=== PATIENT | female | born 1980 | race Caucasian/White ===

== ENCOUNTER 2017-03-17 20:26 | Emergency (ER) | payer OTHER ==
[2017-03-17 20:51] LABS: BILIRUBIN,URINE NEGATIVE (NEGATIVE); PH,URINE 6.5 PH (5.0-7.5)
[2017-03-17 20:54] LABS: HCG UR QUAL NEGATIVE; UA w/ MICROSCOPIC CHARGE YES
[2017-03-17 21:10] LABS: WBC,URINE 0-3 /HPF (0-5)
[2017-03-17 21:14] LABS: UR CULTURE IF IND NOT INDICATED
[2017-03-17] MEDS ORDERED: metroNIDAZOLE 250 MG TABLET PO STA (21:55)
[2017-03-17] MEDS ORDERED: FLUCONAZOLE 100 MG TABLET PO STA (21:55)
[2017-03-17] MEDS ORDERED: metroNIDAZOLE 250 MG TABLET PO ONE (21:57)
[2017-03-17] MEDS ORDERED: FLUCONAZOLE 100 MG TABLET ONE (21:57)
--- NOTE | 2017-03-17 22:00 | ED Physician Documentation ---
PD HPI FEMALE - Stated complaint Stated Complaint: FEMALE - Chief complaint Chief Complaint: Abd Pain - History obtained from History obtained from: Patient - History of Present Illness Timing - onset: How many weeks ago (2) Timing - duration: Weeks (2) Timing - details: Gradual onset Pain level max: 2 Pain level max: 2 Associated symptoms: Back pain (low back), Vaginal discharge (clear, malodorous) . No: Fever, Chest/shoulder pain, Abdominal pain, Pelvic pain, Vaginal pain, Vaginal bleeding, Genital sore/lesion, Dysuria, Urinary frequency, Hematuria Contributing factors: Sexually active (one partner, no changes). No: Recently seen: Clinic (seen in clinic for same. States neg GC/Chlamydia by urine. States PCP did not perform a pelvic.) Review of Systems Constitutional: denies: Fever, Chills Nose: denies: Rhinorrhea / runny nose, Congestion Respiratory: denies: Cough GI: denies: Abdominal Pain, Nausea, Vomiting, Diarrhea : denies: Now EGA Skin: denies: Rash Musculoskeletal: denies: Neck pain, Back pain Neurologic: denies: Headache PD PAST MEDICAL HISTORY - Past Medical History Past Medical History: No - Past Surgical History Past Surgical History: No - Present Medications Home Medications: Ambulatory Orders Medication Instructions Recorded Confirmed Metronidazole [Flagyl] 500 mg PO BID #14 tablet 03/17/17 - Allergies Allergies/Adverse Reactions: Allergies Allergy/AdvReac Type Severity Reaction Status Date / Time Penicillins AdvReac Intermediate swollen Verified 03/17/17 20:31 - Living Situation Living Situation: reports: With family Living Arrangement: reports: At home - Social History Does the pt smoke?: No Smoking Status: Never smoker Does the pt drink ETOH?: Yes Does the pt have substance abuse?: No - Immunizations Immunizations are current?: Yes - POLST Patient has POLST: No PD ED PE NORMAL - Vitals Vital signs reviewed: Yes - General General: Alert and oriented X 3, No acute distress - HEENT HEENT: Moist mucous membranes - Neck Neck: Supple, no meningeal sign - Cardiac Cardiac: RRR - Respiratory Respiratory: No respiratory distress, Clear bilaterally - Abdomen Abdomen: Soft, Non tender, Non distended - Female Female : Lining Scrubber present (Rita (radiation technician)), Other (Thin white discharge. Normal cervix. No genital sores.) - Back Back: No CVA TTP - Derm Derm: Warm and dry - Neuro Neuro: Alert and oriented X 3 - Psych Psych: Normal mood, Normal affect Results - Vitals Vitals: Vital Signs - 24 hr 03/17/17 03/17/17 20:30 22:10 Temperature 36.5 C Heart Rate 73 68 Respiratory 14 18 Rate Blood Pressure 120/80 116/75 O2 Saturation 99 99 Oxygen O2 Source Room air - Labs Labs: Microbiology 03/17/17 21:15 [place] Preparation - Final Other - Vaginal 03/17/17 21:15 Wet Prep - Final Vaginal Laboratory Tests 03/17/17 20:42 Urine Color YELLOW Urine Clarity CLEAR Urine pH 6.5 Ur Specific [place] 1.020 Urine Protein NEGATIVE Urine Glucose (UA) NEGATIVE Urine Ketones NEGATIVE Urine Occult Blood LARGE H Urine Nitrite NEGATIVE Urine Bilirubin NEGATIVE Urine Urobilinogen 0.2 (NORMAL) Ur Leukocyte Esterase NEGATIVE Urine RBC 11-25 H Urine WBC 0-3 Ur Squamous Epith Cells MOD Squamous H Urine Bacteria None Seen Ur Microscopic Review INDICATED Urine Culture Comments NOT INDICATED Urine HCG, Qual NEGATIVE PD MEDICAL DECISION MAKING - ED course Complexity details: reviewed results, re-evaluated patient, considered differential, d/w patient ED course: Patient presents to the emergency department with vaginal discharge intermittently for the past 2 weeks. Appears to have bacterial vaginitis as well as a yeast infection. Given Diflucan here as well as Flagyl. Will place on Flagyl for home and have her follow-up with her doctor as needed. She is very well-appearing, nontoxic. Afebrile. No change in sexual partners. Is in a monogamous relationship. Low risk for STD. No evidence of tubo-ovarian abscess. Patient counseled regarding signs and symptoms for which I believe and urgent re-evaluation would be necessary. Patient with good understanding of and agreement to plan and is comfortable going home at this time This document was made in part using voice recognition software. While efforts are made to proofread this document, sound alike and grammatical errors may occur. Departure - Departure Disposition: 01 Home, Self Care Clinical Impression: Bacterial vaginitis, Yeast infection of the vagina Condition: Good Instructions: ED Vaginosis Bacterial, ED Vaginal Infec Fungal [place] Follow-Up: DIAMOND LEGER [Primary Care Provider] - Within 1 week Prescriptions: Metronidazole [Flagyl] 500 mg PO BID #14 tablet Comments: Return if you worsen. Do not drink alcohol while taking the flagyl. Discharge Date/Time: 03/17/17 22:12
[2017-03-17 22:12] VITALS: BP 116/75
== END 2017-03-17 22:12 | disposition home or self-care (01) ==
LOC: ED 20:26
DX: N76.0 Acute vaginitis (principal); B96.89 Other specified bacterial agents as the cause of diseases classified elsewhere; B37.3 Candidiasis of vulva and vagina
CPT/HCPCS: 81001; 81025; 87210; 87220; 87491; 87591; 99283; A9270; 81003; 87086

== ENCOUNTER 2017-05-18 14:03 | Emergency (ER) | payer OTHER ==
--- NOTE | 2017-05-18 19:06 | XRAY Preliminary Report ---
Exam: XR Chest 2 View PA/LAT IMPRESSION: Normal 2-view chest radiography. [facility] SITE ID: [id number]
--- NOTE | 2017-05-18 19:09 | XRAY Report ---
EXAM: CHEST RADIOGRAPHY EXAM DATE: 05/18/2017 06:26 PM. CLINICAL HISTORY: Chest pain. COMPARISON: None. TECHNIQUE: 2 views. FINDINGS: Lungs/Pleura: No focal opacities evident. No pleural effusion. No pneumothorax. Normal volumes. Mediastinum: Heart and mediastinal contours are unremarkable. Other: None. IMPRESSION: Normal 2-view chest radiography. [facility] Referring Provider Line: [phone] SITE ID: [id number]
--- NOTE | 2017-05-18 19:45 | ED Physician Documentation ---
PD HPI ABD PAIN - Stated complaint Stated Complaint: CHEST PAIN - Chief complaint Chief Complaint: Cardiac - History obtained from History obtained from: Patient - Additional information Additional information: Patient is a pleasant 36-year-old female without any past medical history presents with a complaint of left-sided chest pain. She has had this chest pain off and on for the past couple of days it is worse with movement of her arm. 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 She denies any chest heaviness, shortness of breath, nausea, vomiting, fever, chills cough leg pain or swelling there is no history of venous thromboembolism. Review of systems: For pertinent positive and negatives in the review of systems please see the history of present illness, otherwise all other systems have been reviewed and are negative. Dragon disclaimer: Parts of this medical record were created using voice recognition technology. Because of the inherent limitations of this system, occasional same sounding word substitutions do occur and persist despite proofreading. Please read the document for context. Review of Systems Cardiac: reports: Chest pain / pressure. denies: Palpitations (Patient is a 36- year-old female who is otherwise very healthy she presents with left-sided chest pain off and on for several days the chest pain is very brief but intense. She is very tender in the costochondral junctions consistent with costochondritis however some of her symptoms are more pleural in nature. There is no evidence of ACS and she is very low risk for PE clinically. I think this patient can be safely discharged home with a small amount anti-inflammatory and narcotic analgesia if needed. Disposition: To home Clinical impression: 1. Precordial pain low risk cardiac low risk pulmonary embolism 2. Suspect some component of costochondritis and perhaps pleural-based pain), Pedal edema, Calf pain Respiratory: denies: Dyspnea, Cough, Hemoptysis, Wheezing PD PAST MEDICAL HISTORY - Past Surgical History Past Surgical History: No - Present Medications Home Medications: Ambulatory Orders Medication Instructions Recorded Confirmed Metronidazole [Flagyl] 500 mg PO BID #14 tablet 03/17/17 Ibuprofen 600 mg PO TID PRN #14 tablet 05/18/17 Tramadol HCl 50 mg PO Q8HR PRN #14 tablet 05/18/17 - Allergies Allergies/Adverse Reactions: Allergies Allergy/AdvReac Type Severity Reaction Status Date / Time Penicillins AdvReac Intermediate swollen Verified 03/17/17 20:31 - Social History Does the pt smoke?: No Smoking Status: Never smoker Does the pt drink ETOH?: Yes Does the pt have substance abuse?: No - Immunizations Immunizations are current?: Yes - POLST Patient has POLST: No Results - Vitals Vitals: Vital Signs - 24 hr 05/18/17 05/18/17 05/18/17 14:12 16:35 17:39 Temperature 36.7 C 35.9 C L Heart Rate 68 56 L Respiratory 16 14 Rate Blood Pressure 102/73 109/73 Blood Pressure 110/60 [Left] Blood Pressure 114/52 L [Right] O2 Saturation 100 100 Oxygen O2 Source Room air PD MEDICAL DECISION MAKING - ED course ED course: Patient is a 36-year-old female who is otherwise very healthy she presents with left-sided chest pain off and on for several days the chest pain is very brief but intense. She is very tender in the costochondral junctions consistent with costochondritis however some of her symptoms are more pleural in nature. There is no evidence of ACS and she is very low risk for PE clinically. I think this patient can be safely discharged home with a small amount anti-inflammatory and narcotic analgesia if needed. Disposition: To home Clinical impression: 1. Precordial pain low risk cardiac low risk pulmonary embolism 2. Suspect some component of costochondritis and perhaps pleural-based pain Departure - Departure Disposition: 01 Home, Self Care Clinical Impression: Costochondral chest pain Chest pain Qualifiers: Chest pain type: intercostal pain Qualified Code(s): R07.82 - Intercostal pain Instructions: ED Chest Pain Costochondritis Follow-Up: DIAMOND LEGER [Primary Care Provider] - Prescriptions: Tramadol HCl 50 mg PO Q8HR PRN #14 tablet PRN Reason: Pain Ibuprofen 600 mg PO TID PRN #14 tablet PRN Reason: Pain
[2017-05-18 19:46] VITALS: BP 97/60
== END 2017-05-18 19:45 | disposition home or self-care (01) ==
LOC: ED 14:03
DX: R07.2 Precordial pain (principal); M94.0 Chondrocostal junction syndrome [Tietze]
CPT/HCPCS: 71020; 93005; 99283

== ENCOUNTER 2017-12-13 15:24 | Emergency (ER) | payer OTHER ==
--- NOTE | 2017-12-13 16:48 | ED Physician Documentation ---
PD HPI FEMALE - Stated complaint Stated Complaint: FEMALE - Chief complaint Chief Complaint: Abd Pain - History obtained from History obtained from: Patient - History of Present Illness Timing - onset: How many weeks ago (1) Timing - duration: Weeks (1) Timing - details: Gradual onset Pain level max: 5 Pain level max: 4 Associated symptoms: Vaginal pain, Vaginal discharge (white, states smells fishy ). No: Dysuria, Urinary frequency, Hematuria Contributing factors: No: Similar symptoms before: Diagnosis (BV) Recently seen: Not recently seen - Additional information Additional information: states used a perfumed soap to clean her vagina a week ago before this started. States seen at [facility] for same and no results given. Review of Systems Constitutional: reports: Fever (states had a fever) Nose: denies: Rhinorrhea / runny nose, Congestion Throat: denies: Sore throat Cardiac: denies: Chest pain / pressure Respiratory: denies: Cough GI: denies: Nausea, Vomiting : reports: Discharge. denies: Now EGA Skin: denies: Rash Musculoskeletal: denies: Neck pain, Back pain Neurologic: denies: Headache PD PAST MEDICAL HISTORY - Past Medical History Past Medical History: Yes - Past Surgical History Past Surgical History: No - Present Medications Home Medications: Ambulatory Orders Medication Instructions Recorded Confirmed Cetirizine [ZyrTEC] 12/13/17 Metronidazole [Flagyl] 500 mg PO BID #20 tablet 12/13/17 - Allergies Allergies/Adverse Reactions: Allergies Allergy/AdvReac Type Severity Reaction Status Date / Time Penicillins AdvReac Intermediate swollen Verified 12/13/17 15:34 - Living Situation Living Situation: reports: With family Living Arrangement: reports: At home - Social History Does the pt smoke?: No Smoking Status: Never smoker Does the pt drink ETOH?: Yes Does the pt have substance abuse?: No - Immunizations Immunizations are current?: Yes - POLST Patient has POLST: No PD ED PE NORMAL - Vitals Vital signs reviewed: Yes - General General: Alert and oriented X 3, No acute distress - HEENT HEENT: Ears normal, Moist mucous membranes, Other (mild posterior oropharyngeal erythema without tonsillar exudates.) - Neck Neck: Supple, no meningeal sign - Cardiac Cardiac: RRR, Strong equal pulses - Respiratory Respiratory: No respiratory distress, Clear bilaterally - Abdomen Abdomen: Soft, Non tender, Non distended - Female Female : Internal Medicine Specialist present (Sadaf LOMBARDI), Other (white vaginal d/c. no CMT. no adnexal masses ) - Derm Derm: Warm and dry - Neuro Neuro: Alert and oriented X 3 - Psych Psych: Normal mood, Normal affect Results - Vitals Vitals: Vital Signs - 24 hr 12/13/17 12/13/17 15:29 18:43 Temperature 37.4 C Heart Rate 66 77 Respiratory 16 18 Rate Blood Pressure 108/75 123/74 O2 Saturation 96 98 Oxygen O2 Source Room air - Labs Labs: Microbiology 12/13/17 17:25 [place] Preparation - Final Other - Vaginal 12/13/17 17:25 Wet Prep - Final Vaginal Laboratory Tests 12/13/17 16:55 Urine Color YELLOW Urine Clarity CLEAR Urine pH 7.5 Ur Specific [place] 1.025 Urine Protein NEGATIVE Urine Glucose (UA) NEGATIVE Urine Ketones NEGATIVE Urine Occult Blood MODERATE H Urine Nitrite NEGATIVE Urine Bilirubin NEGATIVE Urine Urobilinogen 0.2 (NORMAL) Ur Leukocyte Esterase NEGATIVE Urine RBC 0-5 Urine WBC 0-3 Ur Squamous Epith Cells MOD Squamous H Amorphous Sediment Marked Urine Bacteria Rare Ur Microscopic Review INDICATED Urine Culture Comments NOT INDICATED Urine HCG, Qual NEGATIVE PD MEDICAL DECISION MAKING - ED course Complexity details: considered differential, d/w patient ED course: Patient is a 37-year-old female who appears to have bacterial vaginitis. Will place on Flagyl. Will have her follow-up with her PCP for further care. Patient counseled regarding signs and symptoms for which I believe and urgent re -evaluation would be necessary. Patient with good understanding of and agreement to plan and is comfortable going home at this time This document was made in part using voice recognition software. While efforts are made to proofread this document, sound alike and grammatical errors may occur. Departure - Departure Disposition: 01 Home, Self Care Clinical Impression: Bacterial vaginitis Condition: Good Instructions: ED Vaginosis Bacterial Follow-Up: your,doctor in 1 week [Other] Prescriptions: Metronidazole [Flagyl] 500 mg PO BID #20 tablet Comments: Return if you worsen. Take all flagyl until gone. Discharge Date/Time: 12/13/17 18:43
[2017-12-13 17:10] LABS: BILIRUBIN,URINE NEGATIVE (NEGATIVE); GLUCOSE, URINE (UA) NEGATIVE (NEGATIVE); KETONES,URINE (UA) NEGATIVE (NEGATIVE); LEUKOCYTE ESTERASE, URINE NEGATIVE (NEGATIVE); NITRITE,URINE NEGATIVE (NEGATIVE); OCCULT BLOOD,URINE MODERATE (NEGATIVE); PH,URINE 7.5 PH (5.0-7.5); PROTEIN,URINE NEGATIVE (NEGATIVE); UROBILINOGEN,URINE 0.2 (NORMAL) E.U./dL (NORMAL)
[2017-12-13 17:23] LABS: HCG UR QUAL NEGATIVE
[2017-12-13 17:24] LABS: CLARITY,URINE CLEAR (CLEAR)
[2017-12-13 17:25] LABS: AMORPHOUS SEDIMENT,UR Marked /LPF; BACTERIA,URINE Rare /HPF (None Seen); RBC,URINE 0-5 /HPF (0-5); SQUAMOUS EPITHELIAL CELL,UR MOD Squamous (<= Few)
[2017-12-13] MEDS ORDERED: metroNIDAZOLE 250 MG TABLET PO STA (18:19)
[2017-12-13 18:46] VITALS: BP 123/74
== END 2017-12-13 18:43 | disposition home or self-care (01) ==
LOC: ED 15:24
DX: N76.0 Acute vaginitis (principal)
CPT/HCPCS: 81001; 81025; 87210; 87220; 99283; A9270; 81003; 87086

== ENCOUNTER 2018-01-31 15:20 | Emergency (ER) | payer OTHER ==
[2018-01-31 15:25] VITALS: BP 108/73
--- NOTE | 2018-01-31 15:25 | ED Physician Documentation ---
PD HPI URI - Stated complaint Stated Complaint: THROAT PX - History obtained from History obtained from: Patient - History of Present Illness Timing - onset: How many days ago (3) Timing duration: Days (3) Timing details: Abrupt onset, Still present Associated symptoms: Sore throat, Swollen nodes, Dry cough, Other (hoarse voice and pain with swallowing.). No: Fever, Nasal congestion, Rhinorrhea Contributing factors: Travel (to [place] about 1 1/2 weeks ago, did not feel sick right after returning.). No: Sick contact, Immunocompromised Similar symptoms before: Has not had sx before Recently seen: Not recently seen Review of Systems Constitutional: reports: Myalgias. denies: Fever Nose: reports: Congestion. denies: Rhinorrhea / runny nose Throat: reports: Sore throat Cardiac: denies: Chest pain / pressure Respiratory: reports: Cough (mild). denies: Dyspnea, Wheezing GI: denies: Nausea, Vomiting, Diarrhea Skin: denies: Rash, Lesions Neurologic: reports: Difficulty speaking (hoarse voice and hurts to talk) PD PAST MEDICAL HISTORY - Past Medical History Cardiovascular: None Respiratory: None Neuro: None Endocrine/Autoimmune: Other (seasonal allergies) - Past Surgical History Past Surgical History: No - Present Medications Home Medications: Ambulatory Orders Medication Instructions Recorded Confirmed Cetirizine [ZyrTEC] 12/13/17 Metronidazole [Flagyl] 500 mg PO BID #20 tablet 12/13/17 Cephalexin [Keflex] 500 mg PO TID #18 capsule 01/31/18 Dexamethasone [Decadron] 4 mg PO DAILY #5 tablet 01/31/18 Tramadol HCl 50 mg PO Q6H PRN #12 tablet 01/31/18 - Allergies Allergies/Adverse Reactions: Allergies Allergy/AdvReac Type Severity Reaction Status Date / Time Penicillins AdvReac Intermediate swollen Verified 12/13/17 15:34 - Social History Does the pt smoke?: No Smoking Status: Never smoker Does the pt drink ETOH?: Yes Does the pt have substance abuse?: No - Immunizations Immunizations are current?: Yes - POLST Patient has POLST: No PD ED PE NORMAL - Vitals Vital signs reviewed: Yes - General General: Alert and oriented X 3, No acute distress, Well developed/nourished - HEENT HEENT: Ears normal. No: Pharynx benign (some redness posteriorly without exudate. Mild soft tissue swelling to the right side, but no notable peritonsillar deviation.) - Neck Neck: Supple, no meningeal sign, Other (mild anterior adenopathy) - Cardiac Cardiac: RRR, No murmur - Respiratory Respiratory: Clear bilaterally - Derm Derm: Normal color, Warm and dry, No rash - Neuro Neuro: Alert and oriented X 3, No motor deficit. No: Normal speech (hoarseness , raspy voice. ) Results - Vitals Vitals: Vital Signs - 24 hr 01/31/18 15:24 Temperature 36.4 C L Heart Rate 52 L Respiratory 15 Rate Blood Pressure 108/73 O2 Saturation 99 Oxygen O2 Source Room air PD MEDICAL DECISION MAKING - ED course Complexity details: considered differential (does not look like strep per se, but she does have some laryngitis (hoarseness) and some appearance of mild peritonsillar swelling on right. Likely viral (or even allergies) but I want to cover with abx in case of early peritonsillar process. This would not likely be GAS, so did not do swab. ), d/w patient Departure - Departure Disposition: 01 Home, Self Care Clinical Impression: Upper respiratory infection Qualifiers: URI type: acute laryngitis Qualified Code(s): J04.0 - Acute laryngitis Condition: Stable Record reviewed to determine appropriate education?: Yes Instructions: ED Upper Resp Infec Abx Tx Prescriptions: Cephalexin [Keflex] 500 mg PO TID #18 capsule Dexamethasone [Decadron] 4 mg PO DAILY #5 tablet Tramadol HCl 50 mg PO Q6H PRN #12 tablet PRN Reason: Pain Comments: Drink lots of fluids. Tylenol or ibuprofen if needed for fevers or pains. Add tramadol just if needed for worse pain. This may be just allergy related but is more likely infectious. Continue your cetirizine. Add Decadron steroid anti -inflammatory for 5 more days. Cephalexin 3 times a day for potential bacterial infection. Recheck if not improving over the next several days. Forms: Activity restrictions
[2018-01-31] MEDS ORDERED: cephALEXin 250 MG CAPSULE PO STA (15:33)
[2018-01-31] MEDS ORDERED: BENZONATATE 100 MG CAPSULE PO STA (15:33)
[2018-01-31] MEDS ORDERED: DEXAMETHASONE 10 MG/ML VIAL PO STA (15:33)
== END 2018-01-31 15:51 | disposition home or self-care (01) ==
LOC: ED 15:20
DX: J04.0 Acute laryngitis (principal)
CPT/HCPCS: 99283; A9270

== ENCOUNTER 2018-10-27 08:00 | Outpatient (CLI) | payer OTHER | END 2018-10-27 23:59 | disposition home or self-care (01) | LOC: LAB.R 08:00 | PROVIDERS: ATTEND Registered Nurse | DX: Z11.3 Encounter for screening for infections with a predominantly sexual mode of transmission (principal) | CPT/HCPCS: 87491; 87591 ==

== ENCOUNTER 2021-01-23 23:23 | Emergency (ER) | payer OTHER ==
[2021-01-23] MEDS ORDERED: FLUCONAZOLE 100 MG TABLET PO STA (23:56)
[2021-01-23 23:57] LABS: BILIRUBIN,URINE NEGATIVE (NEGATIVE); GLUCOSE, URINE (UA) NEGATIVE (NEGATIVE); KETONES,URINE (UA) NEGATIVE (NEGATIVE); LEUKOCYTE ESTERASE, URINE MODERATE (NEGATIVE); NITRITE,URINE NEGATIVE (NEGATIVE); OCCULT BLOOD,URINE MODERATE (NEGATIVE); PROTEIN,URINE NEGATIVE (NEGATIVE); UROBILINOGEN,URINE 0.2 (NORMAL) E.U./dL (NORMAL)
[2021-01-23 23:58] LABS: CLARITY,URINE CLEAR (CLEAR)
--- NOTE | 2021-01-23 23:59 | ED Physician Documentation ---
PD HPI FEMALE - Stated complaint Stated Complaint: FEMALE - Chief complaint Chief Complaint: UTI - History obtained from History obtained from: Patient - History of Present Illness Timing - onset: How many days ago (2) Timing - duration: Days (2) Timing - details: Gradual onset, Still present Associated symptoms: Vaginal discharge, Other (itching) Contributing factors: No: Similar symptoms before: Diagnosis (yeast vaginitis) Recently seen: Clinic - Additional information Additional information: 40-year-old female who reports that she was recently treated for bacterial vaginosis is finished her antibiotics yesterday and she has developed some vaginal itching and a white curd-like discharge without odor. She has had yeast vaginitis previously and feels she has the same today. She is requesting Diflucan. She states that she has recently been examined and she had an entire panel and was treated for bacterial vaginosis. She was tested for STD. Review of Systems Constitutional: denies: Fever Eyes: denies: Decreased vision Ears: denies: Ear pain Nose: denies: Congestion Throat: denies: Sore throat Respiratory: denies: Cough GI: denies: Vomiting : reports: Discharge. denies: Dysuria, Frequency Skin: denies: Rash Musculoskeletal: denies: Neck pain, Back pain, Extremity pain Neurologic: denies: Generalized weakness, Focal weakness, Numbness PD PAST MEDICAL HISTORY - Past Medical History Past Medical History: No Cardiovascular: None Respiratory: None Endocrine/Autoimmune: Other - Past Surgical History Past Surgical History: No - Present Medications Home Medications: Ambulatory Orders Medication Instructions Recorded Confirmed Fluconazole [Diflucan] 1 tablet PO ONCE 1 Days #1 tablet 01/24/21 - Allergies Allergies/Adverse Reactions: Allergies Allergy/AdvReac Type Severity Reaction Status Date / Time Penicillins AdvReac Intermediate swollen Verified 01/23/21 23:43 - Social History Does the pt smoke?: No Smoking Status: Never smoker Does the pt drink ETOH?: Yes Does the pt have substance abuse?: No - Immunizations Immunizations are current?: Yes - POLST Patient has POLST: No PD ED PE NORMAL - Vitals Vital signs reviewed: Yes (Normal) - General General: Alert and oriented X 3, No acute distress, Well developed/nourished - HEENT HEENT: Atraumatic, PERRL, EOMI - Respiratory Respiratory: No respiratory distress - Extremities Extremities: No deformity, No edema - Neuro Neuro: Alert and oriented X 3, 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, No motor deficit, No sensory deficit, Normal speech Eye Opening: Spontaneous Motor: Obeys Commands Verbal: Oriented GCS Score: 15 - Psych Psych: Normal mood, Normal affect Results - Vitals Vitals: Vital Signs - 24 hr 01/23/21 01/23/21 01/24/21 23:43 23:52 00:05 Temperature 36.7 C 36.7 C 36.7 C Heart Rate 60 60 61 Respiratory 16 16 16 Rate Blood Pressure 118/68 118/68 115/65 O2 Saturation 99 99 99 Oxygen O2 Source Room air - Labs Labs: Laboratory Tests 01/23/21 23:50 Urine Color YELLOW Urine Clarity CLEAR Urine pH 6.0 Ur Specific [place] <=1.005 Urine Protein NEGATIVE Urine Glucose (UA) NEGATIVE Urine Ketones NEGATIVE Urine Occult Blood MODERATE H Urine Nitrite NEGATIVE Urine Bilirubin NEGATIVE Urine Urobilinogen 0.2 (NORMAL) Ur Leukocyte Esterase MODERATE H Urine RBC 0-5 Urine WBC 6-10 H Ur Squamous Epith Cells FEW Squamous Urine Bacteria Few Ur Microscopic Review INDICATED Urine Culture Comments INDICATED PD MEDICAL DECISION MAKING - ED course Complexity details: considered differential, d/w patient ED course: 40-year-old female who has recently been examined and treated for bacterial vaginosis now has symptoms consistent with candidal vulvovaginitis. She is requesting specifically Diflucan and this is completely reasonable. She is administered Diflucan 150 mg orally. Departure - Departure Disposition: 01 Home, Self Care Clinical Impression: Yeast infection of the vagina Condition: Good Instructions: ED Vaginal Infec Fungal [place] Follow-Up: KENDELL Patel [Provider Group] Prescriptions: Fluconazole [Diflucan] 1 tablet PO ONCE 1 Days #1 tablet Comments: If symptoms are not resolved in 3 days take the additional tablet. Discharge Date/Time: 01/24/21 00:07
[2021-01-24 00:04] LABS: BACTERIA,URINE Few /HPF (None Seen); RBC,URINE 0-5 /HPF (0-5); SQUAMOUS EPITHELIAL CELL,UR FEW Squamous (<= Few)
[2021-01-24 00:08] VITALS: BP 115/65
[2021-01-30] MEDS ORDERED: IOPAMIDOL-300 50 ML VIAL ONE (14:25)
[2021-01-30] MEDS ORDERED: IOPAMIDOL-300 100 ML VIAL ONE (14:25)
== END 2021-01-24 00:07 | disposition home or self-care (01) ==
LOC: ED 23:23
DX: B37.3 Candidiasis of vulva and vagina (principal); Z86.19 Personal history of other infectious and parasitic diseases
CPT/HCPCS: 81001; 87086; 99283; 99284; A9270; 81003

== ENCOUNTER 2022-03-20 01:06 | Outpatient (CLI) | payer OTHER | END 2022-03-20 01:07 | disposition left against medical advice (07) | LOC: EMS 01:06 | DX: Z03.89 Encounter for observation for other suspected diseases and conditions ruled out (principal) ==

== ENCOUNTER 2022-12-25 18:48 | Emergency (ER) | payer OTHER ==
--- OUTSIDE RECORDS SUMMARY | 2022-12-25 19:35 | EXTERNAL MEDICAL SUMMARY RPT | Continuity of Care Document ---
:1980 Author Organization [place] Address [address] [place] [address] Phone Care Team Providers Name Role Phone Freddie Boston Unavailable Unavailable Allergies and Intolerances date description facility type (no date) Mild [facility] (unknown) (no date) Penicillins [facility] (unknown) (no date) shellfish derived [facility] (unknown) Encounters No information. Functional Status No information. Immunizations No information. Medications date description facility 2022-11-25 00:00 Nitrofurantoin Monohyd/M-Cryst [facility] 2022-11-25 00:00 Metronidazole [facility] Problems date description facility 2022-10-08 12:06 Encounter for supervision of other [facility] 2022-10-08 12:08 Encounter for supervision of other [facility] 2022-10-09 08:19 Encounter for supervision of other [facility] 2022-10-30 16:21 Encounter for supervision of other [facility] 2022-10-30 17:04 Encounter for supervision of other [facility] 2022-10-30 23:53 Encounter for supervision of other [facility] 2022-11-01 00:00 Multigravida of advanced maternal age [facility] 2022-11-01 00:00 Rh negative, antepartum [facility] 2022-11-01 00:00 Anemia in [facility] 2022-11-01 00:00 [facility]:00 [facility] 2022-11-01 00:00 History of placental abruption [facility] 2022-11-25 00:00 Depression [facility] 2022-11-25 00:00 Urinary tract infection [facility] 2022-11-25 00:00 Bacterial vaginosis [facility] 2022-11-25 00:00 Vaginal bleeding [facility] 2022-11-25 00:00 Absence of sensation [facility] 2022-11-25 00:00 Allergy [facility] 2022-11-26 09:44 Supervision of elderly multigravida, [facility] unspecified trimester 2022-11-26 09:44 Encounter for supervision of other [facility] , first t 2022-11-26 09:44 16 weeks gestation of [facility] 2022-11-26 10:34 Supervision of elderly multigravida, [facility] unspecified trimester 2022-11-26 10:34 Encounter for supervision of other [facility] , first t 2022-11-26 10:34 16 weeks gestation of [facility] 2022-12-23 11:11 Other specified noninflammatory disorde rs of [facility] vagina 2022-12-23 11:11 Other specified related condi tions, [facility] unspecified tr 2022-12-23 11:11 Encounter for supervision of other [facility] , second 2022-12-23 11:11 20 weeks gestation of [facility] 2022-12-23 11:14 Other specified noninflammatory disorde rs of [facility] vagina 2022-12-23 11:14 Other specified related condi tions, [facility] unspecified tr 2022-12-23 11:14 Hematuria, unspecified [facility] 2022-12-23 11:14 Encounter for supervision of other [facility] , second 2022-12-23 11:14 20 weeks gestation of [facility] 2022-12-23 11:41 Encounter for supervision of other [facility] , second 2022-12-23 11:41 20 weeks gestation of [facility] 2022-12-24 00:33 Other specified noninflammatory disorde rs of [facility] vagina 2022-12-24 00:33 Other specified related condi tions, [facility] unspecified tr 2022-12-24 00:33 Hematuria, unspecified [facility] 2022-12-24 00:33 Encounter for supervision of other [facility] , second 2022-12-24 00:33 20 weeks gestation of [facility] 2022-12-25 11:49 Encounter for supervision of other [facility] , second 2022-12-25 11:49 Encounter for other specified [facility] screening 2022-12-25 11:49 20 weeks gestation of [facility] Procedures date description facility 2022-10-08 00:00 Obstetrical ultrasound of one fetus at [facility] than 14 weeks gestation 2022-11-25 00:00 Limited obstetrical ultrasound [facility] 2022-10-30 00:00 [facility] 2022-11-25 00:00 [facility] 2022-11-26 00:00 [facility] Results/Labs test date author facility value unit interpret ation Result panel 1 ([facility] (no [facility] Result panel 2 (unknown) (no date) ([facility] Result panel 3 (unknown) (no date) (unknown[facility] Result panel 4 (unknown) (no date) (unknown[facility] Result panel 5 (unknown) (no date) (unknown[facility] Result panel 6 (unknown) (no date) (unknown[facility] Result panel 7 (unknown) (no date) (unknown[facility] Result panel 8 (unknown) (no date) (unknown[facility] Result panel 9 (unknown) (no date) (unknown[facility] Result panel 10 (unknown) (no date) (unknown[facility] Result panel 11 (unknown) (no date) (unknown[facility] Result panel 12 (unknown) (no date) (unknown[facility] Result panel 13 (unknown) (no date) (unknown[facility] Result panel 14 (unknown) (no date) (unknown[facility] Result panel 15 (unknown) (no date) (unknown[facility] Result panel 16 (unknown) (no date) (unknown[facility] Result panel 17 (unknown) (no date) (unknown[facility] Result panel 18 (unknown) (no date) (unknown[facility] Result panel 19 (unknown) (no date) (unknown[facility] Result panel 20 (unknown) (no date) (unknown[facility] Result panel 21 (unknown) (no date) (unknown[facility] Result panel 22 (unknown) (no date) (unknown[facility] Result panel 23 (unknown) (no date) (unknown[facility] Result panel 24 (unknown) (no date) (unknown[facility] Result panel 25 (unknown) (no date) (unknown[facility] Result panel 26 (unknown) (no date) (unknown[facility] Result panel 27 (unknown) (no date) (unknown[facility] Result panel 28 (unknown) (no date) (unknown[facility] Result panel 29 (unknown) (no date) (unknown[facility] Result panel 30 (unknown) (no date) (unknown[facility] Result panel 31 (unknown) (no date) (unknown[facility]) Result panel 32 (unknown) (no date) (unknown[facility] Result panel 33 (unknown) (no date) (unknown[facility] Result panel 34 (unknown) (no date) (unknown[facility] Result panel 35 (unknown) (no date) (unknown[facility] Result panel 36 (unknown) (no date) (unknown[facility]) Result panel 37 (unknown) (no date) (unknown[facility] Result panel 38 (unknown) (no date) (unknown[facility] Result panel 39 (unknown) (no date) (unknown[facility] Result panel 40 (unknown) (no date) (unknown[facility] Result panel 41 (unknown) (no date) (unknown[facility] Result panel 42 (unknown) (no date) (unknown[facility] Result panel 43 (unknown) (no date) (unknown[facility]) Result panel 44 (unknown) (no date) (unknown[facility] Result panel 45 (unknown) (no date) (unknown[facility]) Result panel 46 (unknown) (no date) (unknown[facility] Result panel 47 (unknown) (no date) (unknown[facility]) Result panel 48 (unknown) (no date) (unknown[facility] Result panel 49 (unknown) (no date) (unknown[facility] Result panel 50 (unknown) (no date) (unknown[facility]) Result panel 51 (unknown) (no date) (unknown[facility] Result panel 52 (unknown) (no date) (unknown[facility]) Result panel 53 (unknown) (no date) (unknown) [facility] Result panel 54 (unknown) (no date) (unknown[facility]) Result panel 55 (unknown) (no date) (unknown[facility] Result panel 56 (unknown) (no date) (unknown[facility] Result panel 57 (unknown) (no date) (unknown) [facility]) Result panel 58 (unknown) (no date) (unknown) [facility] Result panel 59 (unknown) (no date) (unknown[facility] Result panel 60 (unknown) (no date) (unknown[facility]) Result panel 61 (unknown) (no date) (unknown[facility] Result panel 62 (unknown) (no date) (unknown[facility]) Result panel 63 (unknown) (no date) (unknown[facility] Result panel 64 (unknown) (no date) (unknown[facility] Result panel 65 (unknown) (no date) (unknown[facility]) Result panel 66 (unknown) (no date) (unknown[facility] Result panel 67 (unknown) (no date) (unknown[facility] Result panel 68 (unknown) (no date) (unknown[facility] Result panel 69 (unknown) (no date) (unknown[facility]) Result panel 70 (unknown) (no date) (unknown[facility] Result panel 71 (unknown) (no date) (unknown) [facility]) Result panel 72 (unknown) (no date) (unknown) [facility]) Result panel 73 (unknown) (no date) (unknown[facility] Result panel 74 (unknown) (no date) (unknown[facility]) Result panel 75 (unknown) (no date) (unknown[facility] Result panel 76 (unknown) (no date) (unknown) [facility]) Result panel 77 (unknown) (no date) (unknown[facility]) Result panel 78 (unknown) (no date) (unknown) [facility]) Result panel 79 (unknown) (no date) (unknown) [facility]) Result panel 80 (unknown) (no date) (unknown) [facility]) Result panel 81 (unknown) (no date) (unknown) [facility]) Result panel 82 (unknown) (no date) (unknown[facility]) Result panel 83 (unknown) (no date) (unknown) [facility]) Result panel 84 (unknown) (no date) (unknown) [facility]) Result panel 85 (unknown) (no date) (unknown) [facility] Result panel 86 (unknown) (no date) (unknown[facility]) Result panel 87 (unknown) (no date) (unknown[facility]) Result panel 88 (unknown) (no date) (unknown[facility]) Result panel 89 (unknown) (no date) (unknown[facility]) Result panel 90 (unknown) (no date) (unknown[facility]) Result panel 91 (unknown) (no date) (unknown[facility]) Result panel 92 (unknown) (no date) (unknown[facility]) Result panel 93 (unknown) (no date) (unknown[facility]) Result panel 94 (unknown) (no date) (unknown[facility]) Result panel 95 (unknown) (no date) (unknown[facility]) Result panel 96 (unknown) (no date) (unknown[facility]) Result panel 97 (unknown) (no date) (unknown[facility]) Result panel 98 (unknown) (no date) (unknown) [facility]) Result panel 99 (unknown) (no date) (unknown[facility] Result panel 100 (unknown) (no date) (unknown[facility]) Result panel 101 (unknown) (no date) (unknown[facility]) Result panel 102 (unknown) (no date) (unknown[facility] Result panel 103 (unknown) (no date) (unknown[facility]) Result panel 104 (unknown) (no date) (unknown[facility] Result panel 105 (unknown) (no date) (unknown[facility]) Result panel 106 (unknown) (no date) (unknown[facility]) Result panel 107 (unknown) (no date) (unknown[facility]) Result panel 108 (unknown) (no date) (unknown[facility]) Result panel 109 (unknown) (no date) (unknown[facility]) Result panel 110 (unknown) (no date) (unknown[facility]) Result panel 111 (unknown) (no date) (unknown) [facility]) Result panel 112 (unknown) (no date) (unknown) [facility]) Result panel 113 (unknown) (no date) (unknown) [facility]) Result panel 114 (unknown) (no date) (unknown[facility]) Result panel 115 (unknown) (no date) (unknown) [facility]) Result panel 116 (unknown) (no date) (unknown[facility]) Result panel 117 (unknown) (no date) (unknown) [facility]) Result panel 118 (unknown) (no date) (unknown) [facility]) Result panel 119 (unknown) (no date) (unknown) [facility]) Result panel 120 (unknown) (no date) (unknown[facility]) Result panel 121 (unknown) (no date) (unknown[facility] Result panel 122 (unknown) (no date) (unknown[facility]) Result panel 123 (unknown) (no date) (unknown[facility]) Result panel 124 (unknown) (no date) (unknown) [facility]) Result panel 125 (unknown) (no date) (unknown[facility]) Result panel 126 (unknown) (no date) (unknown[facility]) Result panel 127 (unknown) (no date) (unknown[facility]) Result panel 128 (unknown) (no date) (unknown[facility] Result panel 129 (unknown) (no date) (unknown) [facility]) Result panel 130 (unknown) (no date) (unknown) [facility]) Result panel 131 (unknown) (no date) (unknown) [facility]) Result panel 132 (unknown) (no date) (unknown) [facility]) Result panel 133 (unknown) (no date) (unknown) [facility]) Result panel 134 (unknown) (no date) (unknown) [facility]) Result panel 135 (unknown) (no date) (unknown) [facility]) Result panel 136 (unknown) (no date) (unknown) [facility]) Result panel 137 (unknown) (no date) (unknown) [facility]) Result panel 138 (unknown) (no date) (unknown) [facility]) Result panel 139 (unknown) (no date) (unknown) [facility]) Result panel 140 (unknown) (no date) (unknown) [facility]) Result panel 141 (unknown) (no date) (unknown) [facility]) Result panel 142 (unknown) (no date) (unknown) [facility]) Result panel 143 (unknown) (no date) (unknown) [facility]) Result panel 144 (unknown) (no date) (unknown) [facility]) Result panel 145 (unknown) (no date) (unknown) [facility] Result panel 146 (unknown) (no date) (unknown) [facility]) Result panel 147 (unknown) (no date) (unknown) [facility] Result panel 148 (unknown) (no date) (unknown) [facility]) Result panel 149 (unknown) (no date) (unknown) [facility] Result panel 150 (unknown) (no date) (unknown) [facility]) Result panel 151 (unknown) (no date) (unknown) [facility] Result panel 152 (unknown) (no date) (unknown) [facility]) Result panel 153 (unknown) (no date) (unknown) [facility] Result panel 154 (unknown) (no date) (unknown) [facility]) Result panel 155 (unknown) (no date) (unknown) [facility] Result panel 156 (unknown) (no date) (unknown) [facility]) Result panel 157 (unknown) (no date) (unknown) [facility]) Result panel 158 (unknown) (no date) (unknown) [facility]) Result panel 159 (unknown) (no date) (unknown) [facility]) Result panel 160 (unknown) (no date) (unknown) [facility]) Result panel 161 (unknown) (no date) (unknown) [facility]) Result panel 162 (unknown) (no date) (unknown) [facility]) Result panel 163 (unknown) (no date) (unknown) [facility]) Result panel 164 (unknown) (no date) (unknown) [facility]) Result panel 165 (unknown) (no date) (unknown) [facility]) Result panel 166 (unknown) (no date) (unknown) [facility]) Result panel 167 (unknown) (no date) (unknown) [facility]) Result panel 168 (unknown) (no date) (unknown) [facility]) Result panel 169 (unknown) (no date) (unknown) [facility]) Result panel 170 (unknown) (no date) (unknown) [facility]) Result panel 171 (unknown) (no date) (unknown) [facility]) Result panel 172 (unknown) (no date) (unknown) [facility]) Result panel 173 (unknown) (no date) (unknown) [facility] Result panel 174 (unknown) (no date) (unknown) [facility]) Result panel 175 (unknown) (no date) (unknown) [facility]) Result panel 176 (unknown) (no date) (unknown) [facility] Result panel 177 (unknown) (no date) (unknown) [facility]) Result panel 178 (unknown) (no date) (unknown) [facility]) Result panel 179 (unknown) (no date) (unknown) [facility] Result panel 180 (unknown) (no date) (unknown) [facility]) Result panel 181 (unknown) (no date) (unknown) [facility] Result panel 182 (unknown) (no date) (unknown) [facility]) Result panel 183 (unknown) (no date) (unknown) [facility] Result panel 184 (unknown) (no date) (unknown) [facility] Result panel 185 (unknown) (no date) (unknown) [facility]) Result panel 186 (unknown) (no date) (unknown) [facility] Result panel 187 (unknown) (no date) (unknown) [facility]) Result panel 188 (unknown) (no date) (unknown) [facility] Result panel 189 (unknown) (no date) (unknown) [facility] Result panel 190 (unknown) (no date) (unknown) [facility]) Result panel 191 (unknown) (no date) (unknown) [facility] Result panel 192 (unknown) (no date) (unknown) [facility] [facility]) Result panel 193 (unknown) (no date) (unknown) [facility]) Result panel 194 (unknown) (no date) (unknown) [facility] Result panel 195 (unknown) (no date) (unknown) [facility]) Result panel 196 (unknown) (no date) (unknown) [facility]) Result panel 197 (unknown) (no date) (unknown) [facility] Result panel 198 (unknown) (no date) (unknown[facility]) Result panel 199 (unknown) (no date) (unknown) [facility] Result panel 200 (unknown) (no date) (unknown[facility] Result panel 201 (unknown) (no date) (unknown) [facility] Result panel 202 (unknown) (no date) (unknown) [facility]) Result panel 203 (unknown) (no date) (unknown) [facility] Result panel 204 (unknown) (no date) (unknown[facility] Result panel 205 (unknown) (no date) (unknown) [facility] Result panel 206 (unknown) (no date) (unknown[facility] Result panel 207 (unknown) (no date) (unknown) [facility] Result panel 208 (unknown) (no date) (unknown) [facility] Result panel 209 (unknown) (no date) (unknown) [facility]) Result panel 210 (unknown) (no date) (unknown) [facility] Result panel 211 (unknown) (no date) (unknown) [facility] Result panel 212 (unknown) (no date) (unknown) [facility] Result panel 213 (unknown) (no date) (unknown) [facility] Result panel 214 (unknown) (no date) (unknown) [facility]) Result panel 215 (unknown) (no date) (unknown[facility] Result panel 216 (unknown) (no date) (unknown) [facility] Result panel 217 (unknown) (no date) (unknown) [facility] Result panel 218 (unknown) (no date) (unknown) [facility] Result panel 219 (unknown) (no date) (unknown[facility]) Result panel 220 (unknown) (no date) (unknown[facility]) Result panel 221 (unknown) (no date) (unknown[facility] Result panel 222 (unknown) (no date) (unknown) [facility]) Result panel 223 (unknown) (no date) (unknown) [facility]) Result panel 224 (unknown) (no date) (unknown[facility]) Result panel 225 (unknown) (no date) (unknown) [facility] Result panel 226 (unknown) (no date) (unknown[facility]) Result panel 227 (unknown) (no date) (unknown[facility]) Result panel 228 (unknown) (no date) (unknown) [facility]) Result panel 229 (unknown) (no date) (unknown) [facility] Result panel 230 (unknown) (no date) (unknown[facility]) Result panel 231 (unknown) (no date) (unknown[facility] Result panel 232 (unknown) (no date) (unknown[facility]) Result panel 233 (unknown) (no date) (unknown) [facility]) Result panel 234 (unknown) (no date) (unknown) [facility]) Result panel 235 (unknown) (no date) (unknown) [facility] Result panel 236 (unknown) (no date) (unknown) [facility]) Result panel 237 (unknown) (no date) (unknown[facility]) Result panel 238 (unknown) (no date) (unknown) [facility] Result panel 239 (unknown) (no date) (unknown) [facility] Result panel 240 (unknown) (no date) (unknown[facility]) Result panel 241 (unknown) (no date) (unknown[facility]) Result panel 242 (unknown) (no date) (unknown) [facility] Result panel 243 (unknown) (no date) (unknown[facility]) Result panel 244 (unknown) (no date) (unknown) [facility]) Result panel 245 (unknown) (no date) (unknown[facility]) Result panel 246 (unknown) (no date) (unknown) [facility]) Result panel 247 (unknown) (no date) (unknown) [facility]) Result panel 248 (unknown) (no date) (unknown) [facility]) Result panel 249 (unknown) (no date) (unknown) [facility]) Result panel 250 (unknown) (no date) (unknown) [facility]) Result panel 251 (unknown) (no date) (unknown) [facility]) Result panel 252 (unknown) (no date) (unknown[facility]) Result panel 253 (unknown) (no date) (unknown) [facility]) Result panel 254 (unknown) (no date) (unknown[facility]) Result panel 255 (unknown) (no date) (unknown) [facility]) Result panel 256 (unknown) (no date) (unknown) [facility]) Result panel 257 (unknown) (no date) (unknown) [facility]) Result panel 258 (unknown) (no date) (unknown) [facility]) Result panel 259 (unknown) (no date) (unknown) [facility]) Result panel 260 (unknown) (no date) (unknown) [facility]) Result panel 261 (unknown) (no date) (unknown) [facility]) Result panel 262 (unknown) (no date) (unknown[facility]) Result panel 263 (unknown) (no date) (unknown) [facility]) Result panel 264 (unknown) (no date) (unknown) [facility]) Result panel 265 (unknown) (no date) (unknown) [facility]) Result panel 266 (unknown) (no date) (unknown) [facility]) Result panel 267 (unknown) (no date) (unknown) [facility]) Result panel 268 (unknown) (no date) (unknown) [facility]) Result panel 269 (unknown) (no date) (unknown[facility]) Result panel 270 (unknown) (no date) (unknown) [facility]) Result panel 271 (unknown) (no date) (unknown) [facility]) Result panel 272 (unknown) (no date) (unknown) [facility]) Result panel 273 (unknown) (no date) (unknown) [facility]) Result panel 274 (unknown) (no date) (unknown) [facility]) Result panel 275 (unknown) (no date) (unknown) [facility]) Result panel 276 (unknown) (no date) (unknown) [facility]) Result panel 277 (unknown) (no date) (unknown) [facility]) Result panel 278 (unknown) (no date) (unknown) [facility]) Result panel 279 (unknown) (no date) (unknown) [facility]) Result panel 280 (unknown) (no date) (unknown) [facility]) Result panel 281 (unknown) (no date) (unknown) [facility]) Result panel 282 (unknown) (no date) (unknown) [facility] Result panel 283 (unknown) (no date) (unknown) [facility]) Result panel 284 (unknown) (no date) (unknown) [facility]) Result panel 285 (unknown) (no date) (unknown) [facility]) Result panel 286 (unknown) (no date) (unknown) [facility]) Result panel 287 (unknown) (no date) (unknown) [facility]) Result panel 288 (unknown) (no date) (unknown[facility]) Result panel 289 (unknown) (no date) (unknown) [facility]) Result panel 290 (unknown) (no date) (unknown) [facility]) Result panel 291 (unknown) (no date) (unknown) [facility]) Result panel 292 (unknown) (no date) (unknown) [facility]) Result panel 293 (unknown) (no date) (unknown) [facility]) Result panel 294 (unknown) (no date) (unknown) [facility]) Result panel 295 (unknown) (no date) (unknown) [facility] Result panel 296 (unknown) (no date) (unknown) [facility]) Result panel 297 (unknown) (no date) (unknown) [facility]) Result panel 298 (unknown) (no date) (unknown[facility]) Result panel 299 (unknown) (no date) (unknown) [facility]) Result panel 300 (unknown) (no date) (unknown) [facility]) Result panel 301 (unknown) (no date) (unknown) [facility]) Result panel 302 (unknown) (no date) (unknown) [facility]) Result panel 303 (unknown) (no date) (unknown[facility]) Result panel 304 (unknown) (no date) (unknown) [facility]) Result panel 305 (unknown) (no date) (unknown) [facility]) Result panel 306 (unknown) (no date) (unknown) [facility]) Result panel 307 (unknown) (no date) (unknown) [facility]) Result panel 308 (unknown) (no date) (unknown) [facility]) Result panel 309 (unknown) (no date) (unknown) [facility]) Result panel 310 (unknown) (no date) (unknown) [facility] Result panel 311 (unknown) (no date) (unknown) [facility]) Result panel 312 (unknown) (no date) (unknown[facility]) Result panel 313 (unknown) (no date) (unknown) [facility]) Result panel 314 (unknown) (no date) (unknown) [facility]) Result panel 315 (unknown) (no date) (unknown) [facility]) Result panel 316 (unknown) (no date) (unknown) [facility]) Result panel 317 (unknown) (no date) (unknown) [facility]) Result panel 318 (unknown) (no date) (unknown) [facility]) Result panel 319 (unknown) (no date) (unknown) [facility]) Result panel 320 (unknown) (no date) (unknown) [facility]) Result panel 321 (unknown) (no date) (unknown) [facility]) Result panel 322 (unknown) (no date) (unknown) [facility]) Result panel 323 (unknown) (no date) (unknown) [facility]) Result panel 324 (unknown) (no date) (unknown) [facility]) Result panel 325 (unknown) (no date) (unknown) [facility]) Result panel 326 (unknown) (no date) (unknown) [facility]) Result panel 327 (unknown) (no date) (unknown) [facility]) Result panel 328 (unknown) (no date) (unknown) [facility]) Result panel 329 (unknown) (no date) (unknown) [facility]) Result panel 330 (unknown) (no date) (unknown) [facility]) Result panel 331 (unknown) (no date) (unknown) [facility]) Result panel 332 (unknown) (no date) (unknown) [facility]) Result panel 333 (unknown) (no date) (unknown) [facility]) Result panel 334 (unknown) (no date) (unknown) [facility]) Result panel 335 (unknown) (no date) (unknown) [facility]) Result panel 336 (unknown) (no date) (unknown) [facility]) Result panel 337 (unknown) (no date) (unknown[facility]) Result panel 338 (unknown) (no date) (unknown) [facility]) Result panel 339 (unknown) (no date) (unknown) [facility]) Result panel 340 (unknown) (no date) (unknown) [facility]) Result panel 341 (unknown) (no date) (unknown[facility]) Result panel 342 (unknown) (no date) (unknown) [facility]) Result panel 343 (unknown) (no date) (unknown) [facility]) Result panel 344 (unknown) (no date) (unknown) [facility]) Result panel 345 (unknown) (no date) (unknown) [facility]) Result panel 346 (unknown) (no date) (unknown) [facility]) Result panel 347 (unknown) (no date) (unknown) [facility]) Result panel 348 (unknown) (no date) (unknown[facility]) Result panel 349 (unknown) (no date) (unknown) [facility]) Result panel 350 (unknown) (no date) (unknown) [facility]) Result panel 351 (unknown) (no date) (unknown) [facility]) Result panel 352 (unknown) (no date) (unknown[facility]) Result panel 353 (unknown) (no date) (unknown[facility]) Result panel 354 (unknown) (no date)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 changing partners (unknown) (no (unknown) (unknown) have occurred. (units (unknown) date) If there are any unknown) questions, please contact the Medical Records (unknown) (no (unknown) (unknown) helmet use: Yes (units (unknown) date) unknown) (unknown) (no (unknown) (unknown) history is (units (unk nown) date) notable for unknown) placental abruptions occurring with all 3 of her (unknown) (no (unknown) (unknown) hours a day and (units (unknown) date) participation of unknown) father in care and office visits (unknown) (no (unknown) (unknown) household (units (unkn own) date) members: children unknown) (unknown) (no (unknown) (unknown) housing: house (units (unknown) date) unknown) (unknown) (no (unknown) (unknown) (still (units (unknown) date) on his unknown) insurance). (unknown) (no (unknown) (unknown) immune, works in (units (unknown) date) long-term care), unknown) hepatitis risk discussed, tuberculosis (unknown) (no (unknown) (unknown) in current or (units ( unknown) date) past unknown) relationships, have you been: hit and hurt (unknown) (no (unknown) (unknown) irritability (units (u nknown) date) unknown) (unknown) (no (unknown) (unknown) lives (units (unkno wn) date) independently: unknown) Yes (unknown) (no (unknown) (unknown) loratadine 10 mg (units (unknown) date) tablet 10 mg PO unknown) DAILY PRN allergic symptoms 09/19/22 [History (unknown) (no (unknown) (unknown) 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 Still on good terms with ex (unknown) (no (unknown) (unknown) needed. 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 Please (unknown) (no (unknown) (unknown) parasitic (units (unkn own) date) diseases unknown) (unknown) (no (unknown) (unknown) pets and (units (unkno wn) date) animals: Yes (2 unknown) dogs, aware of toxo precautions) (unknown) (no (unknown) (unknown) placental (units (unkn own) date) abruption [place] unknown) (unknown) (no (unknown) (unknown) placental (units (unkno wn) date) abruption in that unknown) she does not have chronic hypertension, she is not a (unknown) (no (unknown) (unknown) placentation. (units ( unknown) date) Patient is Rh unknown) negative and familiar with RhoGAM. labs (unknown) (no (unknown) (unknown) pregnancies. The (units (unknown) date) abruption with unknown) her 1st child necessitated pre term delivery of (unknown) (no (unknown) (unknown) should (units (unknown) date) she start having unknown) any signs of bleeding or abnormal (unknown) (no (unknown) (unknown) prenat.vits,karina, (units (unknown) date) [id number] 1 unknown) tab PO DAILY 09/19/22 [History Confirmed (unknown) (no (unknown) (unknown) delivery (units (unknown) date) Jay unknown) (unknown) (no (unknown) (unknown) delivery (units (unknown) date) unknown) (unknown) (no (unknown) (unknown) labor (units ( unknown) date) Vince unknown) (unknown) (no (unknown) (unknown) labor (units ( unknown) date) unknown) (unknown) (no (unknown) (unknown) read the note (units ( unknown) date) carefully and unknown) recognize, using context, where these substitutions (unknown) (no (unknown) (unknown) requiring (units (unkn own) date) delivery unknown) (unknown) (no (unknown) (unknown) seatbelt use: (units ( unknown) date) always unknown) (unknown) (no (unknown) (unknown) second hand (units (un known) date) exposure: Yes unknown) (son vapes) (unknown) (no (unknown) (unknown) shellfish (units (unkn own) date) derived Adverse unknown) Reaction (Mild, Verified 10/30/22 15:44) (unknown) (no (unknown) (unknown) software. (units (unkn own) date) Although every unknown) effort is made to edit content, driver/sales workers errors m (unknown) (no (unknown) (unknown) special chidi (units ( unknown) date) needs: No unknown) (unknown) (no (unknown) (unknown) substance use (units ( unknown) date) type: marijuana unknown) (edibles for sleep when not or (unknown) (no (unknown) (unknown) the other 2 (units (un known) date) occurred at or unknown) near term. Patient has no known risk factors for (unknown) (no (unknown) (unknown) travel history: (units (unknown) date) recent (domestic unknown) only) (unknown) (no (unknown) (unknown) water heater (units (u nknown) date) temp set < 120 unknown) deg: Yes (unknown) (no (unknown) (unknown) well-balanced (units ( unknown) date) diet: daily or unknown) most days (unknown) (no (unknown) (unknown) working smoke (units ( unknown) date) detector in home: unknown) Yes Result panel 539 (unknown) (no date) (unknown) (unknown) Non Reactive (units ( unknown) unknown) (unknown) (no date) (unknown) (unknown) Non Reactive (units ( unknown) unknown) Result panel 540 (unknown) (no date) (unknown) (unknown) ANNEMARIE (units (unkn own) unknown) (unknown) (no date) (unknown) (unknown) ANNEMARIE (units (unkn own) unknown) (unknown) (no date) (unknown) (unknown) Non Reactive (units ( unknown) unknown) (unknown) (no date) (unknown) (unknown) Non Reactive (units ( unknown) unknown) Result panel 541 (unknown) (no (unknown) (unknown) (no value) (units (unk nown) date) unknown) (unknown) (no (unknown) (unknown) 0 days. (units (unkno wn) date) unknown) (unknown) (no (unknown) (unknown) [id number] (units (unkno wn) date) unknown) (unknown) (no (unknown) (unknown) 11/25/22 (units (unkno wn) date) unknown) (unknown) (no (unknown) (unknown) [address] (units (unkn own) date) Street unknown) (unknown) (no (unknown) (unknown) A single living (units (unknown) date) intrauterine unknown) gestation is present. (unknown) (no (unknown) (unknown) Accession (units (unkn own) date) Number: unknown) [id number] (unknown) (no (unknown) (unknown) Age/Sex: 41 / F (units (unknown) date) Date of Service: unknown) (unknown) (no (unknown) (unknown) Amniotic fluid (units (unknown) date) index: 11.5 cm, unknown) deepest pocket 3.2 cm. (unknown) (no (unknown) (unknown) LOUIE Jackson (units ( unknown) date) [id number] unknown) (unknown) (no (unknown) (unknown) Approved by: (units (u nknown) date) francisco Davenport) [place]kay on 11/25/2022 at 13:46 (unknown) (no (unknown) (unknown) COMPARISON: (units (un known) date) None. unknown) (unknown) (no (unknown) (unknown) : 1980 (units (unknown) date) Acct:[id number] unknown) (unknown) (no (unknown) (unknown) Dictated by: (units (u nknown) date) Nicolas Rosen unknownChad Mccracken on 11/25/2022 at 13:44 (unknown) (no (unknown) (unknown) Endovaginal (units (un known) date) scanning: Not unknown) performed (unknown) (no (unknown) (unknown) Estimated (units (unkn own) date) gestational age unknown) from initial scan: 16 weeks 0 days (unknown) (no (unknown) (unknown) FINDINGS: (units (unkn own) date) unknown) (unknown) (no (unknown) (unknown) heart (units (un known) date) rate: 147 beats unknown) per minute. (unknown) (no (unknown) (unknown) IMPRESSION: (units (un known) date) Single living unknown) intrauterine gestation with estimated gestational (unknown) (no (unknown) (unknown) INDICATIONS: (units (u nknown) date) VAGINAL unknown) BLEEDING, 17 WEEKS . (unknown) (no (unknown) (unknown) [facility] (units (unknown) date) unknown) (unknown) (no (unknown) (unknown) Loc: ED (units (unkno wn) date) unknown) (unknown) (no (unknown) (unknown) Maternal (units (unkno wn) date) cervical canal: unknown) 3.2 cm long. Normal lower limit is 2.5 cm. (unknown) (no (unknown) (unknown) Ordering (units (unkno wn) date) Provider: unknown) Iain Hammer D.O. (unknown) (no (unknown) (unknown) PROCEDURE: US (units ( unknown) date) OB LIMITED unknown) (unknown) (no (unknown) (unknown) Patient: (units (unkno wn) date) Yu Gilbert M unknown) MR#: [id number] (unknown) (no (unknown) (unknown) Placenta: (units (unkn own) date) Placental unknown) position is posterior, without previa. (unknown) (no (unknown) (unknown) Presentation: (units ( unknown) date) Variable. unknown) (unknown) (no (unknown) (unknown) Procedure: US (units ( unknown) date) OB limited unknown) (unknown) (no (unknown) (unknown) Real-time (units (unkn own) date) scanning was unknown) performed of the fetus, with image documentation. (unknown) (no (unknown) (unknown) Signed (units (unkno wn) date) unknown) (unknown) (no (unknown) (unknown) TECHNIQUE: (units (unk nown) date) unknown) (unknown) (no (unknown) (unknown) Ultrasound (units (unk nown) date) Report unknown) (unknown) (no (unknown) (unknown) age 16 weeks (units (u nknown) date) unknown) Result panel 542 (unknown) (no date) (unknown) (unknown) 1 (units (unkn own) unknown) (unknown) (no date) (unknown) (unknown) 5-10 /HPF (units (unk nown) unknown) (unknown) (no date) (unknown) (unknown) 5-10/HPF (units (unkn own) unknown) (unknown) (no date) (unknown) (unknown) 5-10/HPF (units (unkn own) unknown) (unknown) (no date) (unknown) (unknown) Many (>30) (units (un known) unknown) Result panel 543 (unknown) (no date) (unknown) (unknown) 0 /ul (unkn own) (unknown) (no date) (unknown) (unknown) 0 /ul (unkn own) (unknown) (no date) (unknown) (unknown) 0.3 % (unkn own) (unknown) (no date) (unknown) (unknown) 0.7 % (unkn own) (unknown) (no date) (unknown) (unknown) 10.6 g/dl (unkn own) (unknown) (no date) (unknown) (unknown) 13.8 % (unkn own) (unknown) (no date) (unknown) (unknown) 1400 /ul (unkn own) (unknown) (no date) (unknown) (unknown) 25.2 % (unkn own) (unknown) (no date) (unknown) (unknown) 265 x10 3/ul (unkn own) (unknown) (no date) (unknown) (unknown) 3.36 x10 6/ul (unkn own) (unknown) (no date) (unknown) (unknown) 300 /ul (unkn own) (unknown) (no date) (unknown) (unknown) 31.5 % (unkn own) (unknown) (no date) (unknown) (unknown) 31.6 pg (unkn own) (unknown) (no date) (unknown) (unknown) 33.7 % (unkn own) (unknown) (no date) (unknown) (unknown) 3900 /ul (unkn own) (unknown) (no date) (unknown) (unknown) 5.7 x10 3/ul (unkn own) (unknown) (no date) (unknown) (unknown) 5.8 % (unkn own) (unknown) (no date) (unknown) (unknown) 68.0 % (unkn own) (unknown) (no date) (unknown) (unknown) 93.8 fl (unkn own) Result panel 544 (unknown) (no date) (unknown) (unknown) 0.9 (units unknown) (unknown) (unknown) (no date) (unknown) (unknown) 10.7 seconds (unkn own) Result panel 545 (unknown) (no date) (unknown) (unknown) 0.9 (units unknown) (unknown) (unknown) (no date) (unknown) (unknown) 10.7 seconds (unkn own) (unknown) (no date) (unknown) (unknown) 28 seconds (unkn own) (unknown) (no date) (unknown) (unknown) 28 seconds (unkn own) Result panel 546 (unknown) (no date) (unknown) (unknown) > 60 ml/min (unkn own) (unknown) (no date) (unknown) (unknown) > 60 ml/min (unkn own) (unknown) (no date) (unknown) (unknown) < 0.1 mg/dl (unkn own) (unknown) (no date) (unknown) (unknown) 0.49 mg/dl (unkn own) (unknown) (no date) (unknown) (unknown) 1.0 (units unknown) (unknown) (unknown) (no date) (unknown) (unknown) 104 mmol/l (unkn own) (unknown) (no date) (unknown) (unknown) 135 mmol/l (unkn own) (unknown) (no date) (unknown) (unknown) 15 mg/dl (unkn own) (unknown) (no date) (unknown) (unknown) 19 iu/l (unkn own) (unknown) (no date) (unknown) (unknown) 22 iu/l (unkn own) (unknown) (no date) (unknown) (unknown) 22 mmol/l (unkn own) (unknown) (no date) (unknown) (unknown) 3.2 g/dl (unkn own) (unknown) (no date) (unknown) (unknown) 3.3 g/dl (unkn own) (unknown) (no date) (unknown) (unknown) 3.9 mmol/l (unkn own) (unknown) (no date) (unknown) (unknown) 30.6 (units unknown) (unknown) (unknown) (no date) (unknown) (unknown) 44 u/l (unkn own) (unknown) (no date) (unknown) (unknown) 6.5 g/dl (unkn own) (unknown) (no date) (unknown) (unknown) 8.3 mg/dl (unkn own) (unknown) (no date) (unknown) (unknown) 84 mg/dl (unkn own) (unknown) (no date) (unknown) (unknown) 84 mg/dl (unkn own) Result panel 547 (unknown) (no date) (unknown) (unknown) 0.9 (units unknown) (unknown) (unknown) (no date) (unknown) (unknown) 10.7 seconds (unkn own) (unknown) (no date) (unknown) (unknown) 28 seconds (unkn own) (unknown) (no date) (unknown) (unknown) 28 seconds (unkn own) (unknown) (no date) (unknown) (unknown) 398 mg/dl (unkn own) Result panel 548 (unknown) (no date) (unknown) (unknown) 1 (units (unkn own) unknown) (unknown) (no date) (unknown) (unknown) 5-10 /HPF (units (unk nown) unknown) (unknown) (no date) (unknown) (unknown) 5-10/HPF (units (unkn own) unknown) (unknown) (no date) (unknown) (unknown) 5-10/HPF (units (unkn own) unknown) (unknown) (no date) (unknown) (unknown) Many (>30) (units (un known) unknown) Result panel 549 (unknown) (no (unknown) (unknown) (no value) (units (unk nown) date) unknown) (unknown) (no (unknown) (unknown) 11/25/22 11/25/22 (units (unknown) date) 11/25/22 unknown) Range/Units (unknown) (no (unknown) (unknown) 11/25/22 12:54 (units (unknown) date) unknown) (unknown) (no (unknown) (unknown) 11/25/22 13:00 (units (unknown) date) unknown) (unknown) (no (unknown) (unknown) 11/25/22 13:30 (units (unknown) date) unknown) (unknown) (no (unknown) (unknown) 11/25/22 14:11 (units (unknown) date) unknown) (unknown) (no (unknown) (unknown) 11/25/22 (units (unkno wn) date) Range/Units unknown) (unknown) (no (unknown) (unknown) 11/25/22 (units (unkno wn) date) unknown) (unknown) (no (unknown) (unknown) [id number] (units (unkno wn) date) unknown) (unknown) (no (unknown) (unknown) 1 tab PO DAILY (units (unknown) date) unknown) (unknown) (no (unknown) (unknown) 12:55 (units (unkno wn) date) unknown) (unknown) (no (unknown) (unknown) 13:00 13:30 13:30 (units (unknown) date) unknown) (unknown) (no (unknown) (unknown) 13:30 (units (unkno wn) date) unknown) (unknown) (no (unknown) (unknown) 147 beats per (units ( unknown) date) minute. Placental unknown) position is posterior without a previa. (unknown) (no (unknown) (unknown) 41-year-old female (units (unknown) date) who is 16 weeks unknown) presents to the ED with 1 day of (unknown) (no (unknown) (unknown) ABO RH Type Stat (units (unknown) date) unknown) (unknown) (no (unknown) (unknown) ALT (<35) IU/L (units (unknown) date) unknown) (unknown) (no (unknown) (unknown) ALT 19 (<35) IU/L (units (unknown) date) unknown) (unknown) (no (unknown) (unknown) APTT (26-36) (units (u nknown) date) SECONDS unknown) (unknown) (no (unknown) (unknown) APTT 28 (26-36) (units (unknown) date) SECONDS unknown) (unknown) (no (unknown) (unknown) AST (14-36) IU/L (units (unknown) date) unknown) (unknown) (no (unknown) (unknown) AST 22 (14-36) (units (unknown) date) IU/L unknown) (unknown) (no (unknown) (unknown) Abdomen is soft, (units (unknown) date) distended unknown) appropriately for 6 weeks' gestation, nontender to (unknown) (no (unknown) (unknown) Age/Sex: 41 / F (units (unknown) date) unknown) (unknown) (no (unknown) (unknown) Albumin (3.5-5.0) (units (unknown) date) g/dL unknown) (unknown) (no (unknown) (unknown) Albumin 3.3 L (units ( unknown) date) (3.5-5.0) g/dL unknown) (unknown) (no (unknown) (unknown) Albumin/Globulin (units (unknown) date) Ratio (1.0-2.8) unknown) (unknown) (no (unknown) (unknown) Albumin/Globulin (units (unknown) date) Ratio 1.0 (1.0-2.8) unknown) (unknown) (no (unknown) (unknown) Alkaline (units (unkno wn) date) Phosphatase unknown) (38-126) U/L (unknown) (no (unknown) (unknown) Alkaline (units (unkno wn) date) Phosphatase 44 unknown) (38-126) U/L (unknown) (no (unknown) (unknown) Allergic/Immunolog (units (unknown) date) ic unknown) (unknown) (no (unknown) (unknown) Allergic/Immunolog (units (unknown) date) ic: Denies unknown) urticaria, Denies throat swelling and Denies (unknown) (no (unknown) (unknown) Allergies (units (unkn own) date) unknown) (unknown) (no (unknown) (unknown) Allergy/AdvReac (units (unknown) date) Type Severity unknown) Reaction Status Date / Time (unknown) (no (unknown) (unknown) Amorphous Sediment (units (unknown) date) 1 unknown) (unknown) (no (unknown) (unknown) Amorphous Sediment (units (unknown) date) unknown) (unknown) (no (unknown) (unknown) Auscultation:?kei (units (unknown) date) r to auscultation unknown) bilaterally (unknown) (no (unknown) (unknown) BUN (7-17) mg/dL (units (unknown) date) unknown) (unknown) (no (unknown) (unknown) BUN 15 (7-17) (units ( unknown) date) mg/dL unknown) (unknown) (no (unknown) (unknown) BUN/Creatinine (units (unknown) date) Ratio (6-22) unknown) (unknown) (no (unknown) (unknown) BUN/Creatinine (units (unknown) date) Ratio 30.6 H (6-22) unknown) (unknown) (no (unknown) (unknown) Baso # (Auto) (units ( unknown) date) (0-100) /uL unknown) (unknown) (no (unknown) (unknown) Baso # (Auto) 0 (units (unknown) date) (0-100) /uL unknown) (unknown) (no (unknown) (unknown) Baso % (Auto) (units ( unknown) date) (0-2) % unknown) (unknown) (no (unknown) (unknown) Baso % (Auto) 0.3 (units (unknown) date) (0-2) % unknown) (unknown) (no (unknown) (unknown) Bedside Urine (units ( unknown) date) Bilirubin - unknown) Negative (unknown) (no (unknown) (unknown) Bedside Urine (units ( unknown) date) Glucose Negative unknown) (unknown) (no (unknown) (unknown) Bedside Urine (units ( unknown) date) Ketone - Negative unknown) (unknown) (no (unknown) (unknown) Bedside Urine (units ( unknown) date) Leukocytes +/- 15 unknown) (unknown) (no (unknown) (unknown) Bedside Urine (units ( unknown) date) Nitrite - Negative unknown) (unknown) (no (unknown) (unknown) Bedside Urine (units ( unknown) date) Occult Blood unknown) (unknown) (no (unknown) (unknown) Bedside Urine (units ( unknown) date) Protein +/- 15 unknown) (unknown) (no (unknown) (unknown) Bedside Urine (units ( unknown) date) Urobilinogen - unknown) Negative (unknown) (no (unknown) (unknown) Bedside Urine pH 6 (units (unknown) date) unknown) (unknown) (no (unknown) (unknown) Blood Pressure (units (unknown) date) 101/50 L 11/25/22 unknown) 12:55 (unknown) (no (unknown) (unknown) Blood Pressure (units (unknown) date) 101/50 L unknown) (unknown) (no (unknown) (unknown) Calcium (8.4-10.2) (units (unknown) date) mg/dL unknown) (unknown) (no (unknown) (unknown) Calcium 8.3 L (units ( unknown) date) (8.4-10.2) mg/dL unknown) (unknown) (no (unknown) (unknown) Carbon Dioxide (units (unknown) date) (22-32) mmol/L unknown) (unknown) (no (unknown) (unknown) Carbon Dioxide 22 (units (unknown) date) (22-32) mmol/L unknown) (unknown) (no (unknown) (unknown) Cardio (units (unkno wn) date) unknown) (unknown) (no (unknown) (unknown) Cardiovascular (units (unknown) date) unknown) (unknown) (no (unknown) (unknown) Cardiovascular: (units (unknown) date) Denies chest pain, unknown) Denies irregular heart rhythm, Denies (unknown) (no (unknown) (unknown) Chief complaint: (units (unknown) date) Vaginal Bleeding unknown) (unknown) (no (unknown) (unknown) Chloride (98-107) (units (unknown) date) mmol/L unknown) (unknown) (no (unknown) (unknown) Chloride 104 (units (u nknown) date) (98-107) mmol/L unknown) (unknown) (no (unknown) (unknown) Complete Blood (units (unknown) date) Count AUTO DIFF unknown) Stat (unknown) (no (unknown) (unknown) Comprehensive (units ( unknown) date) Metabolic Panel unknown) Stat (unknown) (no (unknown) (unknown) Const (units (unkno wn) date) unknown) (unknown) (no (unknown) (unknown) Constitutional (units (unknown) date) unknown) (unknown) (no (unknown) (unknown) Constitutional: (units (unknown) date) Denies chills, unknown) Denies fatigue, Denies fever(s), Denies frequent (unknown) (no (unknown) (unknown) Course (units (unkno wn) date) unknown) (unknown) (no (unknown) (unknown) Creatinine (units (unk nown) date) (0.52-1.04) mg/dL unknown) (unknown) (no (unknown) (unknown) Creatinine 0.49 L (units (unknown) date) (0.52-1.04) mg/dL unknown) (unknown) (no (unknown) (unknown) : 1980 (units (unknown) date) Acct:[id number] unknown) (unknown) (no (unknown) (unknown) Date of Service: (units (unknown) date) 11/25/22 unknown) (unknown) (no (unknown) (unknown) Denies frequent (units (unknown) date) falls, Denies loss unknown) of vision, Denies numbness, Denies tingling (unknown) (no (unknown) (unknown) Denies loss of (units (unknown) date) vision unknown) (unknown) (no (unknown) (unknown) Denies numbness (units (unknown) date) and Denies tingling unknown) (unknown) (no (unknown) (unknown) Departure (units (unkn own) date) unknown) (unknown) (no (unknown) (unknown) Discharge Plan (units (unknown) date) unknown) (unknown) (no (unknown) (unknown) ED Orders (units (unkn own) date) unknown) (unknown) (no (unknown) (unknown) ENT (units (unkno wn) date) unknown) (unknown) (no (unknown) (unknown) ER Physician: (units ( unknown) date) Brandan,Hyma P.A-C unknown) (unknown) (no (unknown) (unknown) Ears, Nose, Mouth, (units (unknown) date) and Throat: Denies unknown) change in voice, Denies dizziness, Denies (unknown) (no (unknown) (unknown) Ears:?hearing (units ( unknown) date) grossly normal unknown) bilaterally (unknown) (no (unknown) (unknown) Effort + (units (unkno wn) date) Inspection:?normal unknown) respiratory effort (unknown) (no (unknown) (unknown) Emergency Report (units (unknown) date) unknown) (unknown) (no (unknown) (unknown) Endocrine (units (unkn own) date) unknown) (unknown) (no (unknown) (unknown) Endocrine: Denies (units (unknown) date) fatigue, Denies unknown) flushing and Denies palpitations (unknown) (no (unknown) (unknown) Eos # (Auto) (units (u nknown) date) (0-450) /uL unknown) (unknown) (no (unknown) (unknown) Eos # (Auto) 0 (units (unknown) date) (0-450) /uL unknown) (unknown) (no (unknown) (unknown) Eos % (Auto) (2-4) (units (unknown) date) % unknown) (unknown) (no (unknown) (unknown) Eos % (Auto) 0.7 L (units (unknown) date) (2-4) % unknown) (unknown) (no (unknown) (unknown) Esterase (units (unkno wn) date) unknown) (unknown) (no (unknown) (unknown) Estimated GFR > 60 (units (unknown) date) (>60) mL/min unknown) (unknown) (no (unknown) (unknown) Estimated GFR (units ( unknown) date) (>60) mL/min unknown) (unknown) (no (unknown) (unknown) Exam Narrative: (units (unknown) date) unknown) (unknown) (no (unknown) (unknown) Exam (units (unkno wn) date) unknown) (unknown) (no (unknown) (unknown) Eyes (units (unkno wn) date) unknown) (unknown) (no (unknown) (unknown) Eyes: Denies (units (u nknown) date) change in vision, unknown) Denies eye discharge, Denies irritation and (unknown) (no (unknown) (unknown) Face and (units (unkno wn) date) sinus:?normal unknown) facial exam and sinuses nontender (unknown) (no (unknown) (unknown) Fibrinogen (units (unk nown) date) (211-428) mg/dL unknown) (unknown) (no (unknown) (unknown) Fibrinogen 398 (units (unknown) date) (211-428) mg/dL unknown) (unknown) (no (unknown) (unknown) Fibrinogen Stat (units (unknown) date) unknown) (unknown) (no (unknown) (unknown) GI (units (unkno wn) date) unknown) (unknown) (no (unknown) (unknown) Gastrointestinal (units (unknown) date) unknown) (unknown) (no (unknown) (unknown) Gastrointestinal: (units (unknown) date) Denies abdominal unknown) pain, Denies change in bowel habits, Denies (unknown) (no (unknown) (unknown) General (units (unkno wn) date) unknown) (unknown) (no (unknown) (unknown) General:?appearanc (units (unknown) date) e normal, both eyes unknown) and all related structures (unknown) (no (unknown) (unknown) General:?cooperati (units (unknown) date) ve, healthy unknown) appearing and comfortable (unknown) (no (unknown) (unknown) General:?patient (units (unknown) date) alert, patient unknown) awake and patient oriented x3 (unknown) (no (unknown) (unknown) Genitourinary (units ( unknown) date) unknown) (unknown) (no (unknown) (unknown) Genitourinary: (units (unknown) date) Reports abnormal unknown) vaginal bleeding, Denies hematuria, Reports (unknown) (no (unknown) (unknown) Globulin (1.7-4.1) (units (unknown) date) g/dL unknown) (unknown) (no (unknown) (unknown) Globulin 3.2 (units (u nknown) date) (1.7-4.1) g/dL unknown) (unknown) (no (unknown) (unknown) Glucose (70-100) (units (unknown) date) mg/dL unknown) (unknown) (no (unknown) (unknown) Glucose 84 (units (unk nown) date) (70-100) mg/dL unknown) (unknown) (no (unknown) (unknown) HCG Quantitative (units (unknown) date) /Beta subunit Stat unknown) (unknown) (no (unknown) (unknown) HENMT (units (unkno wn) date) unknown) (unknown) (no (unknown) (unknown) HPI - (units (unknown) date) unknown) (unknown) (no (unknown) (unknown) HPI Narrative: (units (unknown) date) unknown) (unknown) (no (unknown) (unknown) Hct (36-46) % (units ( unknown) date) unknown) (unknown) (no (unknown) (unknown) Hct 31.5 L (36-46) (units (unknown) date) % unknown) (unknown) (no (unknown) (unknown) Head:?normal to (units (unknown) date) inspection unknown) (unknown) (no (unknown) (unknown) Hematologic/Lympha (units (unknown) date) tic unknown) (unknown) (no (unknown) (unknown) Hematologic/Lympha (units (unknown) date) tic: Denies easy unknown) bruising (unknown) (no (unknown) (unknown) Hgb (12.0-16.0) (units (unknown) date) g/dL unknown) (unknown) (no (unknown) (unknown) Hgb 10.6 L (units (unk nown) date) (12.0-16.0) g/dL unknown) (unknown) (no (unknown) (unknown) History of Present (units (unknown) date) Illness unknown) (unknown) (no (unknown) (unknown) Home Medications (units (unknown) date) unknown) (unknown) (no (unknown) (unknown) INR (0.9-1.3) (units ( unknown) date) unknown) (unknown) (no (unknown) (unknown) INR 0.9 (0.9-1.3) (units (unknown) date) unknown) (unknown) (no (unknown) (unknown) Initial Vital (units ( unknown) date) Signs unknown) (unknown) (no (unknown) (unknown) Initial Vital (units ( unknown) date) Signs: unknown) (unknown) (no (unknown) (unknown) Integumentary/[place] (units (unknown) date) sts unknown) (unknown) (no (unknown) (unknown) [facility] (units (unknown) date) [address] unknown) [place] [address] (unknown) (no (unknown) (unknown) Lab Data (units (unkno wn) date) unknown) (unknown) (no (unknown) (unknown) Lab Results (units (un known) date) unknown) (unknown) (no (unknown) (unknown) Labs: (units (unkno wn) date) unknown) (unknown) (no (unknown) (unknown) Lip/Tongue/Throat (units (unknown) date) unknown) (unknown) (no (unknown) (unknown) Lymph # (Auto) (units (unknown) date) (1791-5405) /uL unknown) (unknown) (no (unknown) (unknown) Lymph # (Auto) (units (unknown) date) 1400 (7513-3839) unknown) /uL (unknown) (no (unknown) (unknown) Lymph % (Auto) (units (unknown) date) (25-40) % unknown) (unknown) (no (unknown) (unknown) Lymph % (Auto) (units (unknown) date) 25.2 (25-40) % unknown) (unknown) (no (unknown) (unknown) MCH (26-34) PG (units (unknown) date) unknown) (unknown) (no (unknown) (unknown) MCH 31.6 (26-34) (units (unknown) date) PG unknown) (unknown) (no (unknown) (unknown) MCHC (30-36) % (units (unknown) date) unknown) (unknown) (no (unknown) (unknown) MCHC 33.7 (30-36) (units (unknown) date) % unknown) (unknown) (no (unknown) (unknown) MCV (80-100) fL (units (unknown) date) unknown) (unknown) (no (unknown) (unknown) MCV 93.8 (80-100) (units (unknown) date) fL unknown) (unknown) (no (unknown) (unknown) MDM - OB/Uterine (units (unknown) date) Contractions unknown) (unknown) (no (unknown) (unknown) MDM Narrative (units ( unknown) date) unknown) (unknown) (no (unknown) (unknown) Medical decision (units (unknown) date) making narrative: unknown) (unknown) (no (unknown) (unknown) Medication (units (unk nown) date) Instructions unknown) Recorded Confirmed (unknown) (no (unknown) (unknown) Miscellaneous,Doct (units (unknown) date) or, MD [Primary unknown) Care Provider] (unknown) (no (unknown) (unknown) Mode of arrival: (units (unknown) date) Ambulatory unknown) (unknown) (no (unknown) (unknown) [place] # (Auto) (units ( unknown) date) (0-900) /uL unknown) (unknown) (no (unknown) (unknown) [place] # (Auto) 300 (units (unknown) date) (0-900) /uL unknown) (unknown) (no (unknown) (unknown) [place] % (Auto) (units ( unknown) date) (3-14) % unknown) (unknown) (no (unknown) (unknown) [place] % (Auto) 5.8 (units (unknown) date) (3-14) % unknown) (unknown) (no (unknown) (unknown) Mouth:?oral (units (un known) date) mucosae normal unknown) (unknown) (no (unknown) (unknown) Musculoskeletal (units (unknown) date) unknown) (unknown) (no (unknown) (unknown) Musculoskeletal: (units (unknown) date) Denies back pain, unknown) Denies muscle weakness, Denies neck pain, (unknown) (no (unknown) (unknown) Narrative (units (unkn own) date) unknown) (unknown) (no (unknown) (unknown) Neck (units (unkno wn) date) unknown) (unknown) (no (unknown) (unknown) Neck:?normal (units (u nknown) date) visual inspection unknown) and no lymphadenopathy noted (unknown) (no (unknown) (unknown) Neuro (units (unkno wn) date) unknown) (unknown) (no (unknown) (unknown) Neurologic (units (unk nown) date) unknown) (unknown) (no (unknown) (unknown) Neurologic: Denies (units (unknown) date) behavioral changes, unknown) Denies confusion, Denies dizziness, (unknown) (no (unknown) (unknown) Neut # (Auto) (units ( unknown) date) (7253-4815) /uL unknown) (unknown) (no (unknown) (unknown) Neut # (Auto) 3900 (units (unknown) date) (4789-4419) /uL unknown) (unknown) (no (unknown) (unknown) Neut % (Auto) (units ( unknown) date) (50-75) % unknown) (unknown) (no (unknown) (unknown) Neut % (Auto) 68.0 (units (unknown) date) (50-75) % unknown) (unknown) (no (unknown) (unknown) No Action (units (unkn own) date) unknown) (unknown) (no (unknown) (unknown) Nose:?external (units (unknown) date) nose normal unknown) (unknown) (no (unknown) (unknown) Ordered: (units (unkno wn) date) unknown) (unknown) (no (unknown) (unknown) Orders (units (unkno wn) date) unknown) (unknown) (no (unknown) (unknown) Oxygen Delivery (units (unknown) date) Method 11/25/22 unknown) 12:55 (unknown) (no (unknown) (unknown) Oxygen Delivery (units (unknown) date) Method Room Air unknown) (unknown) (no (unknown) (unknown) PT (10.1-12.7) (units (unknown) date) SECONDS unknown) (unknown) (no (unknown) (unknown) PT 10.7 (units (unkno wn) date) (10.1-12.7) SECONDS unknown) (unknown) (no (unknown) (unknown) PT [Prothrombin (units (unknown) date) Time INR] Stat unknown) (unknown) (no (unknown) (unknown) PTT [Partial (units (u nknown) date) Thromboplastin unknown) Time] Stat (unknown) (no (unknown) (unknown) Patient: (units (unkno wn) date) Yu Gilbert M unknown) MR#: [id number] (unknown) (no (unknown) (unknown) Penicillins (units (un known) date) Allergy Severe unknown) Swelling Verified 10/30/22 15:44 (unknown) (no (unknown) (unknown) Plt Count (units (unkn own) date) (150-400) X103/uL unknown) (unknown) (no (unknown) (unknown) Plt Count 265 (units ( unknown) date) (150-400) X103/uL unknown) (unknown) (no (unknown) (unknown) Potassium (units (unkn own) date) (3.4-5.1) mmol/L unknown) (unknown) (no (unknown) (unknown) Potassium 3.9 (units ( unknown) date) (3.4-5.1) mmol/L unknown) (unknown) (no (unknown) (unknown) Prescriptions: (units (unknown) date) unknown) (unknown) (no (unknown) (unknown) Psychiatric (units (un known) date) unknown) (unknown) (no (unknown) (unknown) Psychiatric: Denies (units (unknown) date) anxiety, Denies unknown) behavioral changes, Denies confusion, Denies (unknown) (no (unknown) (unknown) Pulse Oximetry 97 (units (unknown) date) 11/25/22 12:55 unknown) (unknown) (no (unknown) (unknown) Pulse Oximetry 97 (units (unknown) date) unknown) (unknown) (no (unknown) (unknown) Pulse Rate 81 (units ( unknown) date) 11/25/22 12:55 unknown) (unknown) (no (unknown) (unknown) Pulse Rate 81 (units ( unknown) date) unknown) (unknown) (no (unknown) (unknown) RBC (4.0-5.2) (units ( unknown) date) X106/uL unknown) (unknown) (no (unknown) (unknown) RBC 3.36 L (units (unk nown) date) (4.0-5.2) X106/uL unknown) (unknown) (no (unknown) (unknown) RDW (11.6-14.8) % (units (unknown) date) unknown) (unknown) (no (unknown) (unknown) RDW 13.8 (units (unkno wn) date) (11.6-14.8) % unknown) (unknown) (no (unknown) (unknown) ROS Unobtainable: (units (unknown) date) All systems unknown) reviewed + are unremarkable except as noted in HPI (unknown) (no (unknown) (unknown) Rate:?regular rate (units (unknown) date) unknown) (unknown) (no (unknown) (unknown) Referrals: (units (unk nown) date) unknown) (unknown) (no (unknown) (unknown) Related Data (units (u nknown) date) unknown) (unknown) (no (unknown) (unknown) Resp (units (unkno wn) date) unknown) (unknown) (no (unknown) (unknown) Respiratory Rate (units (unknown) date) 17 11/25/22 12:55 unknown) (unknown) (no (unknown) (unknown) Respiratory Rate (units (unknown) date) 17 unknown) (unknown) (no (unknown) (unknown) Respiratory (units (un known) date) unknown) (unknown) (no (unknown) (unknown) Respiratory: Denies (units (unknown) date) cough, Denies unknown) dyspnea, Denies dyspnea on exertion and Denies (unknown) (no (unknown) (unknown) Review of Systems (units (unknown) date) unknown) (unknown) (no (unknown) (unknown) Rhythm:?regular (units (unknown) date) rhythm unknown) (unknown) (no (unknown) (unknown) Signed By: (units (unk nown) date) unknown) (unknown) (no (unknown) (unknown) Skin/Breast: (units (u nknown) date) Denies pruritus, unknown) Denies erythema, Denies rash and Denies wounds (unknown) (no (unknown) (unknown) Sodium (137-145) (units (unknown) date) mmol/L unknown) (unknown) (no (unknown) (unknown) Sodium 135 L (units (u nknown) date) (137-145) mmol/L unknown) (unknown) (no (unknown) (unknown) Source: patient (units (unknown) date) unknown) (unknown) (no (unknown) (unknown) Stated complaint: (units (unknown) date) 14 weeks unknown) preg/bleeding (unknown) (no (unknown) (unknown) Temperature 98 F (units (unknown) date) 11/25/22 12:55 unknown) (unknown) (no (unknown) (unknown) Temperature 98 F (units (unknown) date) unknown) (unknown) (no (unknown) (unknown) Throat:?posterior (units (unknown) date) oropharynx normal unknown) (unknown) (no (unknown) (unknown) Time Seen by (units (u nknown) date) Provider: 11/25/22 unknown) 12:46 (unknown) (no (unknown) (unknown) Total Bilirubin < (units (unknown) date) 0.1 L (0.2-1.3) unknown) mg/dL (unknown) (no (unknown) (unknown) Total Bilirubin (units (unknown) date) (0.2-1.3) mg/dL unknown) (unknown) (no (unknown) (unknown) Total Protein (units ( unknown) date) (6.3-8.2) g/dL unknown) (unknown) (no (unknown) (unknown) Total Protein 6.5 (units (unknown) date) (6.3-8.2) g/dL unknown) (unknown) (no (unknown) (unknown) UA is positive for (units (unknown) date) UTI. Labs within unknown) normal limits. Ultrasound shows a single (unknown) (no (unknown) (unknown) US OB limited Stat (units (unknown) date) unknown) (unknown) (no (unknown) (unknown) Ur Squamous Epith (units (unknown) date) Cells (0-5/HPF) unknown) (unknown) (no (unknown) (unknown) Ur Squamous Epith (units (unknown) date) Cells 5-10 /hpf H unknown) (0-5/HPF) (unknown) (no (unknown) (unknown) Urine Bacteria (units (unknown) date) (None) unknown) (unknown) (no (unknown) (unknown) Urine Bacteria (units (unknown) date) Many (>30) H (None) unknown) (unknown) (no (unknown) (unknown) Urine Culture Stat (units (unknown) date) unknown) (unknown) (no (unknown) (unknown) Urine Dip (units (unkn own) date) unknown) (unknown) (no (unknown) (unknown) Urine Microscopic (units (unknown) date) Stat unknown) (unknown) (no (unknown) (unknown) Urine Mucus (units (un known) date) (Negative) unknown) (unknown) (no (unknown) (unknown) Urine Mucus 1+ H (units (unknown) date) (Negative) unknown) (unknown) (no (unknown) (unknown) Urine RBC (units (unkn own) date) (0-5/HPF) unknown) (unknown) (no (unknown) (unknown) Urine RBC 5-10/hpf (units (unknown) date) H (0-5/HPF) unknown) (unknown) (no (unknown) (unknown) Urine Specific (units (unknown) date) [place] 1.020 unknown) (unknown) (no (unknown) (unknown) Urine WBC (units (unkn own) date) (0-5/HPF) unknown) (unknown) (no (unknown) (unknown) Urine WBC 5-10/hpf (units (unknown) date) H (0-5/HPF) unknown) (unknown) (no (unknown) (unknown) Vital Signs - 8 hr (units (unknown) date) unknown) (unknown) (no (unknown) (unknown) Vital Signs (units (un known) date) unknown) (unknown) (no (unknown) (unknown) Vital signs: (units (u nknown) date) unknown) (unknown) (no (unknown) (unknown) WBC (4.5-11.0) (units (unknown) date) X103/uL unknown) (unknown) (no (unknown) (unknown) WBC 5.7 (4.5-11.0) (units (unknown) date) X103/uL unknown) (unknown) (no (unknown) (unknown) Wet Prep Tric BV (units (unknown) date) [place] Stat unknown) (unknown) (no (unknown) (unknown) [Embedded Image (units (unknown) date) Not Available] unknown) (unknown) (no (unknown) (unknown) and Denies (units (unk nown) date) orthopnea unknown) (unknown) (no (unknown) (unknown) and Denies (units (unk nown) date) weakness unknown) (unknown) (no (unknown) (unknown) and below (units (unkn own) date) unknown) (unknown) (no (unknown) (unknown) and has a (units (unkn own) date) appointment for unknown) tomorrow. Patient had a normal ultrasound 3 days ago (unknown) (no (unknown) (unknown) caregiver, is on (units (unknown) date) light duty, however unknown) was trying to help lift patient's earlier (unknown) (no (unknown) (unknown) chest pain, (units (un known) date) shortness of unknown) breath, nausea, vomiting, flank pain, dysuria, (unknown) (no (unknown) (unknown) depression, Denies (units (unknown) date) homicidal ideation unknown) and Denies suicidal ideation (unknown) (no (unknown) (unknown) diarrhea, Denies (units (unknown) date) nausea and Denies unknown) vomiting (unknown) (no (unknown) (unknown) discharge since (units (unknown) date) yesterday, is not unknown) like cottage cheese, more runny and odorless. (unknown) (no (unknown) (unknown) endorses a feeling (units (unknown) date) of pelvic and unknown) suprapubic heaviness. Patient states she is a (unknown) (no (unknown) (unknown) falls, Denies (units ( unknown) date) lethargy and Denies unknown) weakness (unknown) (no (unknown) (unknown) lightheadedness, (units (unknown) date) Denies unknown) palpitations, Denies dyspnea, Denies dyspnea on exertion (unknown) (no (unknown) (unknown) lightheadedness, (units (unknown) date) dizziness, syncope. unknown) Patient denies pelvic cramping, but (unknown) (no (unknown) (unknown) living (units (unkno wn) date) intrauterine unknown) gestation that is estimated at 16 weeks. heart rate (unknown) (no (unknown) (unknown) neck pain, Denies (units (unknown) date) sore throat and unknown) Denies throat swelling (unknown) (no (unknown) (unknown) of (units (unkno wn) date) unknown) (unknown) (no (unknown) (unknown) other. Will obtain (units (unknown) date) labs, UA, obstetric unknown) ultrasound, wet prep. (unknown) (no (unknown) (unknown) palpation. There (units (unknown) date) is no CVA unknown) tenderness. (unknown) (no (unknown) (unknown) pelvic pain, (units (u nknown) date) Denies flank pain, unknown) Denies urinary incontinence, Denies urinary (unknown) (no (unknown) (unknown) placental abruption (units (unknown) date) versus threatened unknown) miscarriage versus vaginal bleeding during (unknown) (no (unknown) (unknown) placental (units (unkn own) date) abruption with her unknown) prior pregnancies. Patient sees OBGYN Dr. Meyer, (unknown) (no (unknown) (unknown) versus (units (unknown) date) UTI versus unknown) bacterial vaginosis versus yeast infection versus (unknown) (no (unknown) (unknown) prenat.vits,karina,mi (units (unknown) date) [id number] 1 tab unknown) PO DAILY 09/19/22 11/25/22 (unknown) (no (unknown) (unknown) prenat.vits,karina,mi (units (unknown) date) a-ypii-kwimi Tablet unknown) (unknown) (no (unknown) (unknown) shellfish derived (units (unknown) date) AdvReac Mild unknown) Diarrhea Verified 10/30/22 15:44 (unknown) (no (unknown) (unknown) that showed a (units ( unknown) date) heart tone of unknown) 145. Patient states she is had some vaginal (unknown) (no (unknown) (unknown) today after which (units (unknown) date) her vaginal unknown) bleeding started. Patient has a history of (unknown) (no (unknown) (unknown) urgency and (units (un known) date) Reports vaginal unknown) discharge (unknown) (no (unknown) (unknown) vaginal bleeding, (units (unknown) date) lower abdominal unknown) pressure. Concern for placenta previa versus (unknown) (no (unknown) (unknown) vaginal bleeding, (units (unknown) date) lower abdominal unknown) pressure. Patient denies fevers, chills, (unknown) (no (unknown) (unknown) wheezing (units (unkno wn) date) unknown) Result panel 550 (unknown) (no date) (unknown) (unknown) (no value) (units (un known) unknown) (unknown) (no date) (unknown) (unknown) Few WBCs (units (unkn own) unknown) (unknown) (no date) (unknown) (unknown) None seen (units (unk nown) unknown) (unknown) (no date) (unknown) (unknown) Occasional (units (un known) unknown) Result panel 551 (unknown) (no (unknown) (unknown) (no value) (units (unk nown) date) unknown) (unknown) (no (unknown) (unknown) > 60 ml/min (unkno wn) date) (unknown) (no (unknown) (unknown) > 60 ml/min (unkno wn) date) (unknown) (no (unknown) (unknown) < 0.1 mg/dl (unkno wn) date) (unknown) (no (unknown) (unknown) 0.49 mg/dl (unkno wn) date) (unknown) (no (unknown) (unknown) 11/25/22 11/25/22 (units (unknown) date) 11/25/22 unknown) Range/Units (unknown) (no (unknown) (unknown) 11/25/22 12:54 (units (unknown) date) unknown) (unknown) (no (unknown) (unknown) 11/25/22 13:00 (units (unknown) date) unknown) (unknown) (no (unknown) (unknown) 11/25/22 13:30 (units (unknown) date) unknown) (unknown) (no (unknown) (unknown) 11/25/22 14:11 (units (unknown) date) unknown) (unknown) (no (unknown) (unknown) 11/25/22 (units (unkno wn) date) Range/Units unknown) (unknown) (no (unknown) (unknown) 11/25/22 (units (unkno wn) date) unknown) (unknown) (no (unknown) (unknown) [id number] (units (unkno wn) date) unknown) (unknown) (no (unknown) (unknown) 1 tab PO DAILY (units (unknown) date) unknown) (unknown) (no (unknown) (unknown) 1.0 (units (unkno wn) date) unknown) (unknown) (no (unknown) (unknown) 104 mmol/l (unkno wn) date) (unknown) (no (unknown) (unknown) 12:55 11/25/22 (units (unknown) date) unknown) (unknown) (no (unknown) (unknown) 135 mmol/l (unkno wn) date) (unknown) (no (unknown) (unknown) 13:00 13:30 13:30 (units (unknown) date) unknown) (unknown) (no (unknown) (unknown) 13:30 (units (unkno wn) date) unknown) (unknown) (no (unknown) (unknown) 147 beats per (units ( unknown) date) minute. Placental unknown) position is posterior without a previa. (unknown) (no (unknown) (unknown) 14:27 (units (unkno wn) date) unknown) (unknown) (no (unknown) (unknown) 15 mg/dl (unkno wn) date) (unknown) (no (unknown) (unknown) 19 iu/l (unkno wn) date) (unknown) (no (unknown) (unknown) 22 iu/l (unkno wn) date) (unknown) (no (unknown) (unknown) 22 mmol/l (unkno wn) date) (unknown) (no (unknown) (unknown) 3.2 g/dl (unkno wn) date) (unknown) (no (unknown) (unknown) 3.3 g/dl (unkno wn) date) (unknown) (no (unknown) (unknown) 3.9 mmol/l (unkno wn) date) (unknown) (no (unknown) (unknown) 30.6 (units (unkno wn) date) unknown) (unknown) (no (unknown) (unknown) 15053 miu/ml (unkno wn) date) (unknown) (no (unknown) (unknown) 19716 miu/ml (unkno wn) date) (unknown) (no (unknown) (unknown) 41-year-old female (units (unknown) date) who is 16 weeks unknown) presents to the ED with 1 day of (unknown) (no (unknown) (unknown) 44 u/l (unkno wn) date) (unknown) (no (unknown) (unknown) 6.5 g/dl (unkno wn) date) (unknown) (no (unknown) (unknown) 8.3 mg/dl (unkno wn) date) (unknown) (no (unknown) (unknown) 84 mg/dl (unkno wn) date) (unknown) (no (unknown) (unknown) 84 mg/dl (unkno wn) date) (unknown) (no (unknown) (unknown) ABO RH Type Stat (units (unknown) date) unknown) (unknown) (no (unknown) (unknown) ALT (<35) IU/L (units (unknown) date) unknown) (unknown) (no (unknown) (unknown) ALT 19 (<35) IU/L (units (unknown) date) unknown) (unknown) (no (unknown) (unknown) APTT (26-36) (units (u nknown) date) SECONDS unknown) (unknown) (no (unknown) (unknown) APTT 28 (26-36) (units (unknown) date) SECONDS unknown) (unknown) (no (unknown) (unknown) AST (14-36) IU/L (units (unknown) date) unknown) (unknown) (no (unknown) (unknown) AST 22 (14-36) (units (unknown) date) IU/L unknown) (unknown) (no (unknown) (unknown) Abdomen is soft, (units (unknown) date) distended unknown) appropriately for 6 weeks' gestation, nontender to (unknown) (no (unknown) (unknown) Age/Sex: 41 / F (units (unknown) date) unknown) (unknown) (no (unknown) (unknown) Albumin (3.5-5.0) (units (unknown) date) g/dL unknown) (unknown) (no (unknown) (unknown) Albumin 3.3 L (units ( unknown) date) (3.5-5.0) g/dL unknown) (unknown) (no (unknown) (unknown) Albumin/Globulin (units (unknown) date) Ratio (1.0-2.8) unknown) (unknown) (no (unknown) (unknown) Albumin/Globulin (units (unknown) date) Ratio 1.0 (1.0-2.8) unknown) (unknown) (no (unknown) (unknown) Alkaline (units (unkno wn) date) Phosphatase unknown) (38-126) U/L (unknown) (no (unknown) (unknown) Alkaline (units (unkno wn) date) Phosphatase 44 unknown) (38-126) U/L (unknown) (no (unknown) (unknown) Allergic/Immunolog (units (unknown) date) ic unknown) (unknown) (no (unknown) (unknown) Allergic/Immunolog (units (unknown) date) ic: Denies unknown) urticaria, Denies throat swelling and Denies (unknown) (no (unknown) (unknown) Allergies (units (unkn own) date) unknown) (unknown) (no (unknown) (unknown) Allergy/AdvReac (units (unknown) date) Type Severity unknown) Reaction Status Date / Time (unknown) (no (unknown) (unknown) Amorphous Sediment (units (unknown) date) 1 unknown) (unknown) (no (unknown) (unknown) Amorphous Sediment (units (unknown) date) unknown) (unknown) (no (unknown) (unknown) Auscultation:?kei (units (unknown) date) r to auscultation unknown) bilaterally (unknown) (no (unknown) (unknown) BUN (7-17) mg/dL (units (unknown) date) unknown) (unknown) (no (unknown) (unknown) BUN 15 (7-17) (units ( unknown) date) mg/dL unknown) (unknown) (no (unknown) (unknown) BUN/Creatinine (units (unknown) date) Ratio (6-22) unknown) (unknown) (no (unknown) (unknown) BUN/Creatinine (units (unknown) date) Ratio 30.6 H (6-22) unknown) (unknown) (no (unknown) (unknown) Baso # (Auto) (units ( unknown) date) (0-100) /uL unknown) (unknown) (no (unknown) (unknown) Baso # (Auto) 0 (units (unknown) date) (0-100) /uL unknown) (unknown) (no (unknown) (unknown) Baso % (Auto) (units ( unknown) date) (0-2) % unknown) (unknown) (no (unknown) (unknown) Baso % (Auto) 0.3 (units (unknown) date) (0-2) % unknown) (unknown) (no (unknown) (unknown) Bedside Urine (units ( unknown) date) Bilirubin - unknown) Negative (unknown) (no (unknown) (unknown) Bedside Urine (units ( unknown) date) Glucose Negative unknown) (unknown) (no (unknown) (unknown) Bedside Urine (units ( unknown) date) Ketone - Negative unknown) (unknown) (no (unknown) (unknown) Bedside Urine (units ( unknown) date) Leukocytes +/- 15 unknown) (unknown) (no (unknown) (unknown) Bedside Urine (units ( unknown) date) Nitrite - Negative unknown) (unknown) (no (unknown) (unknown) Bedside Urine (units ( unknown) date) Occult Blood unknown) (unknown) (no (unknown) (unknown) Bedside Urine (units ( unknown) date) Protein +/- 15 unknown) (unknown) (no (unknown) (unknown) Bedside Urine (units ( unknown) date) Urobilinogen - unknown) Negative (unknown) (no (unknown) (unknown) Bedside Urine pH 6 (units (unknown) date) unknown) (unknown) (no (unknown) (unknown) Blood Pressure (units (unknown) date) 101/50 L 11/25/22 unknown) 12:55 (unknown) (no (unknown) (unknown) Blood Pressure (units (unknown) date) 101/50 L 98/53 L unknown) (unknown) (no (unknown) (unknown) Calcium (8.4-10.2) (units (unknown) date) mg/dL unknown) (unknown) (no (unknown) (unknown) Calcium 8.3 L (units ( unknown) date) (8.4-10.2) mg/dL unknown) (unknown) (no (unknown) (unknown) Carbon Dioxide (units (unknown) date) (22-32) mmol/L unknown) (unknown) (no (unknown) (unknown) Carbon Dioxide 22 (units (unknown) date) (22-32) mmol/L unknown) (unknown) (no (unknown) (unknown) Cardio (units (unkno wn) date) unknown) (unknown) (no (unknown) (unknown) Cardiovascular (units (unknown) date) unknown) (unknown) (no (unknown) (unknown) Cardiovascular: (units (unknown) date) Denies chest pain, unknown) Denies irregular heart rhythm, Denies (unknown) (no (unknown) (unknown) Chief complaint: (units (unknown) date) Vaginal Bleeding unknown) (unknown) (no (unknown) (unknown) Chloride (98-107) (units (unknown) date) mmol/L unknown) (unknown) (no (unknown) (unknown) Chloride 104 (units (u nknown) date) (98-107) mmol/L unknown) (unknown) (no (unknown) (unknown) Complete Blood (units (unknown) date) Count AUTO DIFF unknown) Stat (unknown) (no (unknown) (unknown) Comprehensive (units ( unknown) date) Metabolic Panel unknown) Stat (unknown) (no (unknown) (unknown) Const (units (unkno wn) date) unknown) (unknown) (no (unknown) (unknown) Constitutional (units (unknown) date) unknown) (unknown) (no (unknown) (unknown) Constitutional: (units (unknown) date) Denies chills, unknown) Denies fatigue, Denies fever(s), Denies frequent (unknown) (no (unknown) (unknown) Course (units (unkno wn) date) unknown) (unknown) (no (unknown) (unknown) Creatinine (units (unk nown) date) (0.52-1.04) mg/dL unknown) (unknown) (no (unknown) (unknown) Creatinine 0.49 L (units (unknown) date) (0.52-1.04) mg/dL unknown) (unknown) (no (unknown) (unknown) : 1980 (units (unknown) date) Acct:[id number] unknown) (unknown) (no (unknown) (unknown) Date of Service: (units (unknown) date) 11/25/22 unknown) (unknown) (no (unknown) (unknown) Denies frequent (units (unknown) date) falls, Denies loss unknown) of vision, Denies numbness, Denies tingling (unknown) (no (unknown) (unknown) Denies loss of (units (unknown) date) vision unknown) (unknown) (no (unknown) (unknown) Denies numbness (units (unknown) date) and Denies tingling unknown) (unknown) (no (unknown) (unknown) Departure (units (unkn own) date) unknown) (unknown) (no (unknown) (unknown) Discharge Plan (units (unknown) date) unknown) (unknown) (no (unknown) (unknown) ED Orders (units (unkn own) date) unknown) (unknown) (no (unknown) (unknown) ENT (units (unkno wn) date) unknown) (unknown) (no (unknown) (unknown) ER Physician: (units ( unknown) date) Brandan,Hyma P.A-C unknown) (unknown) (no (unknown) (unknown) Ears, Nose, Mouth, (units (unknown) date) and Throat: Denies unknown) change in voice, Denies dizziness, Denies (unknown) (no (unknown) (unknown) Ears:?hearing (units ( unknown) date) grossly normal unknown) bilaterally (unknown) (no (unknown) (unknown) Effort + (units (unkno wn) date) Inspection:?normal unknown) respiratory effort (unknown) (no (unknown) (unknown) Emergency Report (units (unknown) date) unknown) (unknown) (no (unknown) (unknown) Endocrine (units (unkn own) date) unknown) (unknown) (no (unknown) (unknown) Endocrine: Denies (units (unknown) date) fatigue, Denies unknown) flushing and Denies palpitations (unknown) (no (unknown) (unknown) Eos # (Auto) (units (u nknown) date) (0-450) /uL unknown) (unknown) (no (unknown) (unknown) Eos # (Auto) 0 (units (unknown) date) (0-450) /uL unknown) (unknown) (no (unknown) (unknown) Eos % (Auto) (2-4) (units (unknown) date) % unknown) (unknown) (no (unknown) (unknown) Eos % (Auto) 0.7 L (units (unknown) date) (2-4) % unknown) (unknown) (no (unknown) (unknown) Esterase (units (unkno wn) date) unknown) (unknown) (no (unknown) (unknown) Estimated GFR > 60 (units (unknown) date) (>60) mL/min unknown) (unknown) (no (unknown) (unknown) Estimated GFR (units ( unknown) date) (>60) mL/min unknown) (unknown) (no (unknown) (unknown) Exam Narrative: (units (unknown) date) unknown) (unknown) (no (unknown) (unknown) Exam (units (unkno wn) date) unknown) (unknown) (no (unknown) (unknown) Eyes (units (unkno wn) date) unknown) (unknown) (no (unknown) (unknown) Eyes: Denies (units (u nknown) date) change in vision, unknown) Denies eye discharge, Denies irritation and (unknown) (no (unknown) (unknown) Face and (units (unkno wn) date) sinus:?normal unknown) facial exam and sinuses nontender (unknown) (no (unknown) (unknown) Fibrinogen (units (unk nown) date) (211-428) mg/dL unknown) (unknown) (no (unknown) (unknown) Fibrinogen 398 (units (unknown) date) (211-428) mg/dL unknown) (unknown) (no (unknown) (unknown) Fibrinogen Stat (units (unknown) date) unknown) (unknown) (no (unknown) (unknown) GI (units (unkno wn) date) unknown) (unknown) (no (unknown) (unknown) Gastrointestinal (units (unknown) date) unknown) (unknown) (no (unknown) (unknown) Gastrointestinal: (units (unknown) date) Denies abdominal unknown) pain, Denies change in bowel habits, Denies (unknown) (no (unknown) (unknown) General (units (unkno wn) date) unknown) (unknown) (no (unknown) (unknown) General:?appearanc (units (unknown) date) e normal, both eyes unknown) and all related structures (unknown) (no (unknown) (unknown) General:?cooperati (units (unknown) date) ve, healthy unknown) appearing and comfortable (unknown) (no (unknown) (unknown) General:?patient (units (unknown) date) alert, patient unknown) awake and patient oriented x3 (unknown) (no (unknown) (unknown) Genitourinary (units ( unknown) date) unknown) (unknown) (no (unknown) (unknown) Genitourinary: (units (unknown) date) Reports abnormal unknown) vaginal bleeding, Denies hematuria, Reports (unknown) (no (unknown) (unknown) Globulin (1.7-4.1) (units (unknown) date) g/dL unknown) (unknown) (no (unknown) (unknown) Globulin 3.2 (units (u nknown) date) (1.7-4.1) g/dL unknown) (unknown) (no (unknown) (unknown) Glucose (70-100) (units (unknown) date) mg/dL unknown) (unknown) (no (unknown) (unknown) Glucose 84 (units (unk nown) date) (70-100) mg/dL unknown) (unknown) (no (unknown) (unknown) HCG Quantitative (units (unknown) date) /Beta subunit Stat unknown) (unknown) (no (unknown) (unknown) HENMT (units (unkno wn) date) unknown) (unknown) (no (unknown) (unknown) HPI - (units (unknown) date) unknown) (unknown) (no (unknown) (unknown) HPI Narrative: (units (unknown) date) unknown) (unknown) (no (unknown) (unknown) Hct (36-46) % (units ( unknown) date) unknown) (unknown) (no (unknown) (unknown) Hct 31.5 L (36-46) (units (unknown) date) % unknown) (unknown) (no (unknown) (unknown) Head:?normal to (units (unknown) date) inspection unknown) (unknown) (no (unknown) (unknown) Hematologic/Lympha (units (unknown) date) tic unknown) (unknown) (no (unknown) (unknown) Hematologic/Lympha (units (unknown) date) tic: Denies easy unknown) bruising (unknown) (no (unknown) (unknown) Hgb (12.0-16.0) (units (unknown) date) g/dL unknown) (unknown) (no (unknown) (unknown) Hgb 10.6 L (units (unk nown) date) (12.0-16.0) g/dL unknown) (unknown) (no (unknown) (unknown) History of Present (units (unknown) date) Illness unknown) (unknown) (no (unknown) (unknown) Home Medications (units (unknown) date) unknown) (unknown) (no (unknown) (unknown) INR (0.9-1.3) (units ( unknown) date) unknown) (unknown) (no (unknown) (unknown) INR 0.9 (0.9-1.3) (units (unknown) date) unknown) (unknown) (no (unknown) (unknown) Initial Vital (units ( unknown) date) Signs unknown) (unknown) (no (unknown) (unknown) Initial Vital (units ( unknown) date) Signs: unknown) (unknown) (no (unknown) (unknown) Integumentary/Brianna (units (unknown) date) sts unknown) (unknown) (no (unknown) (unknown) [facility] (units (unknown) date) [address] unknown) [place] [address] (unknown) (no (unknown) (unknown) Lab Data (units (unkno wn) date) unknown) (unknown) (no (unknown) (unknown) Lab Results (units (un known) date) unknown) (unknown) (no (unknown) (unknown) Labs: (units (unkno wn) date) unknown) (unknown) (no (unknown) (unknown) Lip/Tongue/Throat (units (unknown) date) unknown) (unknown) (no (unknown) (unknown) Lymph # (Auto) (units (unknown) date) (9550-7126) /uL unknown) (unknown) (no (unknown) (unknown) Lymph # (Auto) (units (unknown) date) 1400 (8195-8881) unknown) /uL (unknown) (no (unknown) (unknown) Lymph % (Auto) (units (unknown) date) (25-40) % unknown) (unknown) (no (unknown) (unknown) Lymph % (Auto) (units (unknown) date) 25.2 (25-40) % unknown) (unknown) (no (unknown) (unknown) MCH (26-34) PG (units (unknown) date) unknown) (unknown) (no (unknown) (unknown) MCH 31.6 (26-34) (units (unknown) date) PG unknown) (unknown) (no (unknown) (unknown) MCHC (30-36) % (units (unknown) date) unknown) (unknown) (no (unknown) (unknown) MCHC 33.7 (30-36) (units (unknown) date) % unknown) (unknown) (no (unknown) (unknown) MCV (80-100) fL (units (unknown) date) unknown) (unknown) (no (unknown) (unknown) MCV 93.8 (80-100) (units (unknown) date) fL unknown) (unknown) (no (unknown) (unknown) MDM - OB/Uterine (units (unknown) date) Contractions unknown) (unknown) (no (unknown) (unknown) MDM Narrative (units ( unknown) date) unknown) (unknown) (no (unknown) (unknown) Medical decision (units (unknown) date) making narrative: unknown) (unknown) (no (unknown) (unknown) Medication (units (unk nown) date) Instructions unknown) Recorded Confirmed (unknown) (no (unknown) (unknown) Miscellaneous,Doct (units (unknown) date) or, MD [Primary unknown) Care Provider] (unknown) (no (unknown) (unknown) Mode of arrival: (units (unknown) date) Ambulatory unknown) (unknown) (no (unknown) (unknown) Logan # (Auto) (units ( unknown) date) (0-900) /uL unknown) (unknown) (no (unknown) (unknown) Logan # (Auto) 300 (units (unknown) date) (0-900) /uL unknown) (unknown) (no (unknown) (unknown) Logan % (Auto) (units ( unknown) date) (3-14) % unknown) (unknown) (no (unknown) (unknown) Logan % (Auto) 5.8 (units (unknown) date) (3-14) % unknown) (unknown) (no (unknown) (unknown) Mouth:?oral (units (un known) date) mucosae normal unknown) (unknown) (no (unknown) (unknown) Musculoskeletal (units (unknown) date) unknown) (unknown) (no (unknown) (unknown) Musculoskeletal: (units (unknown) date) Denies back pain, unknown) Denies muscle weakness, Denies neck pain, (unknown) (no (unknown) (unknown) Narrative (units (unkn own) date) unknown) (unknown) (no (unknown) (unknown) Neck (units (unkno wn) date) unknown) (unknown) (no (unknown) (unknown) Neck:?normal (units (u nknown) date) visual inspection unknown) and no lymphadenopathy noted (unknown) (no (unknown) (unknown) Neuro (units (unkno wn) date) unknown) (unknown) (no (unknown) (unknown) Neurologic (units (unk nown) date) unknown) (unknown) (no (unknown) (unknown) Neurologic: Denies (units (unknown) date) behavioral changes, unknown) Denies confusion, Denies dizziness, (unknown) (no (unknown) (unknown) Neut # (Auto) (units ( unknown) date) (5560-2187) /uL unknown) (unknown) (no (unknown) (unknown) Neut # (Auto) 3900 (units (unknown) date) (5060-7436) /uL unknown) (unknown) (no (unknown) (unknown) Neut % (Auto) (units ( unknown) date) (50-75) % unknown) (unknown) (no (unknown) (unknown) Neut % (Auto) 68.0 (units (unknown) date) (50-75) % unknown) (unknown) (no (unknown) (unknown) No Action (units (unkn own) date) unknown) (unknown) (no (unknown) (unknown) Nose:?external (units (unknown) date) nose normal unknown) (unknown) (no (unknown) (unknown) Ordered: (units (unkno wn) date) unknown) (unknown) (no (unknown) (unknown) Orders (units (unkno wn) date) unknown) (unknown) (no (unknown) (unknown) Oxygen Delivery (units (unknown) date) Method 11/25/22 unknown) 12:55 (unknown) (no (unknown) (unknown) Oxygen Delivery (units (unknown) date) Method Room Air unknown) Room Air (unknown) (no (unknown) (unknown) PT (10.1-12.7) (units (unknown) date) SECONDS unknown) (unknown) (no (unknown) (unknown) PT 10.7 (units (unkno wn) date) (10.1-12.7) SECONDS unknown) (unknown) (no (unknown) (unknown) PT [Prothrombin (units (unknown) date) Time INR] Stat unknown) (unknown) (no (unknown) (unknown) PTT [Partial (units (u nknown) date) Thromboplastin unknown) Time] Stat (unknown) (no (unknown) (unknown) Patient: (units (unkno wn) date) Yu Gilbert M unknown) MR#: [id number] (unknown) (no (unknown) (unknown) Penicillins (units (un known) date) Allergy Severe unknown) Swelling Verified 10/30/22 15:44 (unknown) (no (unknown) (unknown) Plt Count (units (unkn own) date) (150-400) X103/uL unknown) (unknown) (no (unknown) (unknown) Plt Count 265 (units ( unknown) date) (150-400) X103/uL unknown) (unknown) (no (unknown) (unknown) Potassium (units (unkn own) date) (3.4-5.1) mmol/L unknown) (unknown) (no (unknown) (unknown) Potassium 3.9 (units ( unknown) date) (3.4-5.1) mmol/L unknown) (unknown) (no (unknown) (unknown) Prescriptions: (units (unknown) date) unknown) (unknown) (no (unknown) (unknown) Psychiatric (units (un known) date) unknown) (unknown) (no (unknown) (unknown) Psychiatric: Denies (units (unknown) date) anxiety, Denies unknown) behavioral changes, Denies confusion, Denies (unknown) (no (unknown) (unknown) Pulse Oximetry 97 (units (unknown) date) 11/25/22 12:55 unknown) (unknown) (no (unknown) (unknown) Pulse Oximetry 97 (units (unknown) date) 98 unknown) (unknown) (no (unknown) (unknown) Pulse Rate 81 (units ( unknown) date) 11/25/22 12:55 unknown) (unknown) (no (unknown) (unknown) Pulse Rate 81 79 (units (unknown) date) unknown) (unknown) (no (unknown) (unknown) RBC (4.0-5.2) (units ( unknown) date) X106/uL unknown) (unknown) (no (unknown) (unknown) RBC 3.36 L (units (unk nown) date) (4.0-5.2) X106/uL unknown) (unknown) (no (unknown) (unknown) RDW (11.6-14.8) % (units (unknown) date) unknown) (unknown) (no (unknown) (unknown) RDW 13.8 (units (unkno wn) date) (11.6-14.8) % unknown) (unknown) (no (unknown) (unknown) ROS Unobtainable: (units (unknown) date) All systems unknown) reviewed + are unremarkable except as noted in HPI (unknown) (no (unknown) (unknown) Rate:?regular rate (units (unknown) date) unknown) (unknown) (no (unknown) (unknown) Referrals: (units (unk nown) date) unknown) (unknown) (no (unknown) (unknown) Related Data (units (u nknown) date) unknown) (unknown) (no (unknown) (unknown) Resp (units (unkno wn) date) unknown) (unknown) (no (unknown) (unknown) Respiratory Rate (units (unknown) date) 17 11/25/22 12:55 unknown) (unknown) (no (unknown) (unknown) Respiratory Rate (units (unknown) date) 17 unknown) (unknown) (no (unknown) (unknown) Respiratory (units (un known) date) unknown) (unknown) (no (unknown) (unknown) Respiratory: Denies (units (unknown) date) cough, Denies unknown) dyspnea, Denies dyspnea on exertion and Denies (unknown) (no (unknown) (unknown) Review of Systems (units (unknown) date) unknown) (unknown) (no (unknown) (unknown) Rhythm:?regular (units (unknown) date) rhythm unknown) (unknown) (no (unknown) (unknown) Signed By: (units (unk nown) date) unknown) (unknown) (no (unknown) (unknown) Skin/Breast: (units (u nknown) date) Denies pruritus, unknown) Denies erythema, Denies rash and Denies wounds (unknown) (no (unknown) (unknown) Sodium (137-145) (units (unknown) date) mmol/L unknown) (unknown) (no (unknown) (unknown) Sodium 135 L (units (u nknown) date) (137-145) mmol/L unknown) (unknown) (no (unknown) (unknown) Source: patient (units (unknown) date) unknown) (unknown) (no (unknown) (unknown) Stated complaint: (units (unknown) date) 14 weeks unknown) preg/bleeding (unknown) (no (unknown) (unknown) Temperature 98 F (units (unknown) date) 11/25/22 12:55 unknown) (unknown) (no (unknown) (unknown) Temperature 98 F (units (unknown) date) unknown) (unknown) (no (unknown) (unknown) Throat:?posterior (units (unknown) date) oropharynx normal unknown) (unknown) (no (unknown) (unknown) Time Seen by (units (u nknown) date) Provider: 11/25/22 unknown) 12:46 (unknown) (no (unknown) (unknown) Total Bilirubin < (units (unknown) date) 0.1 L (0.2-1.3) unknown) mg/dL (unknown) (no (unknown) (unknown) Total Bilirubin (units (unknown) date) (0.2-1.3) mg/dL unknown) (unknown) (no (unknown) (unknown) Total Protein (units ( unknown) date) (6.3-8.2) g/dL unknown) (unknown) (no (unknown) (unknown) Total Protein 6.5 (units (unknown) date) (6.3-8.2) g/dL unknown) (unknown) (no (unknown) (unknown) UA is positive for (units (unknown) date) UTI. Labs within unknown) normal limits. Ultrasound shows a single (unknown) (no (unknown) (unknown) US OB limited Stat (units (unknown) date) unknown) (unknown) (no (unknown) (unknown) Ur Squamous Epith (units (unknown) date) Cells (0-5/HPF) unknown) (unknown) (no (unknown) (unknown) Ur Squamous Epith (units (unknown) date) Cells 5-10 /hpf H unknown) (0-5/HPF) (unknown) (no (unknown) (unknown) Urine Bacteria (units (unknown) date) (None) unknown) (unknown) (no (unknown) (unknown) Urine Bacteria (units (unknown) date) Many (>30) H (None) unknown) (unknown) (no (unknown) (unknown) Urine Culture Stat (units (unknown) date) unknown) (unknown) (no (unknown) (unknown) Urine Dip (units (unkn own) date) unknown) (unknown) (no (unknown) (unknown) Urine Microscopic (units (unknown) date) Stat unknown) (unknown) (no (unknown) (unknown) Urine Mucus (units (un known) date) (Negative) unknown) (unknown) (no (unknown) (unknown) Urine Mucus 1+ H (units (unknown) date) (Negative) unknown) (unknown) (no (unknown) (unknown) Urine RBC (units (unkn own) date) (0-5/HPF) unknown) (unknown) (no (unknown) (unknown) Urine RBC 5-10/hpf (units (unknown) date) H (0-5/HPF) unknown) (unknown) (no (unknown) (unknown) Urine Specific (units (unknown) date) [place] 1.020 unknown) (unknown) (no (unknown) (unknown) Urine WBC (units (unkn own) date) (0-5/HPF) unknown) (unknown) (no (unknown) (unknown) Urine WBC 5-10/hpf (units (unknown) date) H (0-5/HPF) unknown) (unknown) (no (unknown) (unknown) Vital Signs - 8 hr (units (unknown) date) unknown) (unknown) (no (unknown) (unknown) Vital Signs (units (un known) date) unknown) (unknown) (no (unknown) (unknown) Vital signs: (units (u nknown) date) unknown) (unknown) (no (unknown) (unknown) WBC (4.5-11.0) (units (unknown) date) X103/uL unknown) (unknown) (no (unknown) (unknown) WBC 5.7 (4.5-11.0) (units (unknown) date) X103/uL unknown) (unknown) (no (unknown) (unknown) Wet Prep Tric BV (units (unknown) date) [place] Stat unknown) (unknown) (no (unknown) (unknown) [Embedded Image (units (unknown) date) Not Available] unknown) (unknown) (no (unknown) (unknown) and Denies (units (unk nown) date) orthopnea unknown) (unknown) (no (unknown) (unknown) and Denies (units (unk nown) date) weakness unknown) (unknown) (no (unknown) (unknown) and below (units (unkn own) date) unknown) (unknown) (no (unknown) (unknown) and has a (units (unkn own) date) appointment for unknown) tomorrow. Patient had a normal ultrasound 3 days ago (unknown) (no (unknown) (unknown) caregiver, is on (units (unknown) date) light duty, however unknown) was trying to help lift patient's earlier (unknown) (no (unknown) (unknown) chest pain, (units (un known) date) shortness of unknown) breath, nausea, vomiting, flank pain, dysuria, (unknown) (no (unknown) (unknown) depression, Denies (units (unknown) date) homicidal ideation unknown) and Denies suicidal ideation (unknown) (no (unknown) (unknown) diarrhea, Denies (units (unknown) date) nausea and Denies unknown) vomiting (unknown) (no (unknown) (unknown) discharge since (units (unknown) date) yesterday, is not unknown) like cottage cheese, more runny and odorless. (unknown) (no (unknown) (unknown) endorses a feeling (units (unknown) date) of pelvic and unknown) suprapubic heaviness. Patient states she is a (unknown) (no (unknown) (unknown) falls, Denies (units ( unknown) date) lethargy and Denies unknown) weakness (unknown) (no (unknown) (unknown) lightheadedness, (units (unknown) date) Denies unknown) palpitations, Denies dyspnea, Denies dyspnea on exertion (unknown) (no (unknown) (unknown) lightheadedness, (units (unknown) date) dizziness, syncope. unknown) Patient denies pelvic cramping, but (unknown) (no (unknown) (unknown) living (units (unkno wn) date) intrauterine unknown) gestation that is estimated at 16 weeks. heart rate (unknown) (no (unknown) (unknown) neck pain, Denies (units (unknown) date) sore throat and unknown) Denies throat swelling (unknown) (no (unknown) (unknown) of (units (unkno wn) date) unknown) (unknown) (no (unknown) (unknown) other. Will obtain (units (unknown) date) labs, UA, obstetric unknown) ultrasound, wet prep. (unknown) (no (unknown) (unknown) palpation. There (units (unknown) date) is no CVA unknown) tenderness. (unknown) (no (unknown) (unknown) pelvic pain, (units (u nknown) date) Denies flank pain, unknown) Denies urinary incontinence, Denies urinary (unknown) (no (unknown) (unknown) placental abruption (units (unknown) date) versus threatened unknown) miscarriage versus vaginal bleeding during (unknown) (no (unknown) (unknown) placental (units (unkn own) date) abruption with her unknown) prior pregnancies. Patient sees OBEZEKIEL Meyer, (unknown) (no (unknown) (unknown) versus (units (unknown) date) UTI versus unknown) bacterial vaginosis versus yeast infection versus (unknown) (no (unknown) (unknown) prenat.vits,karina,mi (units (unknown) date) [id number] 1 tab unknown) PO DAILY 09/19/22 11/25/22 (unknown) (no (unknown) (unknown) prenat.vits,karina,mi (units (unknown) date) [id number] Tablet unknown) (unknown) (no (unknown) (unknown) shellfish derived (units (unknown) date) AdvReac Mild unknown) Diarrhea Verified 10/30/22 15:44 (unknown) (no (unknown) (unknown) that showed a (units ( unknown) date) heart tone of unknown) 145. Patient states she is had some vaginal (unknown) (no (unknown) (unknown) today after which (units (unknown) date) her vaginal unknown) bleeding started. Patient has a history of (unknown) (no (unknown) (unknown) urgency and (units (un known) date) Reports vaginal unknown) discharge (unknown) (no (unknown) (unknown) vaginal bleeding, (units (unknown) date) lower abdominal unknown) pressure. Concern for placenta previa versus (unknown) (no (unknown) (unknown) vaginal bleeding, (units (unknown) date) lower abdominal unknown) pressure. Patient denies fevers, chills, (unknown) (no (unknown) (unknown) wheezing (units (unkno wn) date) unknown) Result panel 552 (unknown) (no date) (unknown) (unknown) A Negative (units (un known) unknown) Result panel 553 (unknown) (no (unknown) (unknown) (no value) (units (unk nown) date) unknown) (unknown) (no (unknown) (unknown) 11/25/22 11/25/22 (units (unknown) date) 11/25/22 unknown) Range/Units (unknown) (no (unknown) (unknown) 11/25/22 11/25/22 (units (unknown) date) Range/Units unknown) (unknown) (no (unknown) (unknown) 11/25/22 12:54 (units (unknown) date) unknown) (unknown) (no (unknown) (unknown) 11/25/22 13:00 (units (unknown) date) unknown) (unknown) (no (unknown) (unknown) 11/25/22 13:30 (units (unknown) date) unknown) (unknown) (no (unknown) (unknown) 11/25/22 14:20 (units (unknown) date) unknown) (unknown) (no (unknown) (unknown) 11/25/22 (units (unkno wn) date) unknown) (unknown) (no (unknown) (unknown) [id number] (units (unkno wn) date) unknown) (unknown) (no (unknown) (unknown) 1 tab PO DAILY (units (unknown) date) unknown) (unknown) (no (unknown) (unknown) 100 mg PO Q12H 7 (units (unknown) date) Days Qty: 14 0RF unknown) (unknown) (no (unknown) (unknown) 12:55 11/25/22 (units (unknown) date) unknown) (unknown) (no (unknown) (unknown) 13:00 13:30 13:30 (units (unknown) date) unknown) (unknown) (no (unknown) (unknown) 13:30 13:30 (units (un known) date) unknown) (unknown) (no (unknown) (unknown) 147 beats per (units ( unknown) date) minute. Placental unknown) position is posterior without a previa. (unknown) (no (unknown) (unknown) 14:27 11/25/22 (units (unknown) date) unknown) (unknown) (no (unknown) (unknown) 16:11 (units (unkno wn) date) unknown) (unknown) (no (unknown) (unknown) 41-year-old female (units (unknown) date) who is 16 weeks unknown) presents to the ED with 1 day of (unknown) (no (unknown) (unknown) 500 mg PO Q12H 7 (units (unknown) date) Days Qty: 14 0RF unknown) (unknown) (no (unknown) (unknown) ABO RH Type Stat (units (unknown) date) unknown) (unknown) (no (unknown) (unknown) ALT (<35) IU/L (units (unknown) date) unknown) (unknown) (no (unknown) (unknown) ALT 19 (<35) IU/L (units (unknown) date) unknown) (unknown) (no (unknown) (unknown) APTT (26-36) (units (u nknown) date) SECONDS unknown) (unknown) (no (unknown) (unknown) APTT 28 (26-36) (units (unknown) date) SECONDS unknown) (unknown) (no (unknown) (unknown) AST (14-36) IU/L (units (unknown) date) unknown) (unknown) (no (unknown) (unknown) AST 22 (14-36) (units (unknown) date) IU/L unknown) (unknown) (no (unknown) (unknown) Abdomen is soft, (units (unknown) date) distended unknown) appropriately for 6 weeks' gestation, nontender to (unknown) (no (unknown) (unknown) Activity (units (unkno wn) date) Restrictions/Additi unknown) onal Instructions: (unknown) (no (unknown) (unknown) Age/Sex: 41 / F (units (unknown) date) unknown) (unknown) (no (unknown) (unknown) Albumin (3.5-5.0) (units (unknown) date) g/dL unknown) (unknown) (no (unknown) (unknown) Albumin 3.3 L (units ( unknown) date) (3.5-5.0) g/dL unknown) (unknown) (no (unknown) (unknown) Albumin/Globulin (units (unknown) date) Ratio (1.0-2.8) unknown) (unknown) (no (unknown) (unknown) Albumin/Globulin (units (unknown) date) Ratio 1.0 (1.0-2.8) unknown) (unknown) (no (unknown) (unknown) Alkaline (units (unkno wn) date) Phosphatase unknown) (38-126) U/L (unknown) (no (unknown) (unknown) Alkaline (units (unkno wn) date) Phosphatase 44 unknown) (38-126) U/L (unknown) (no (unknown) (unknown) Allergic/Immunolog (units (unknown) date) ic unknown) (unknown) (no (unknown) (unknown) Allergic/Immunolog (units (unknown) date) ic: Denies unknown) urticaria, Denies throat swelling and Denies (unknown) (no (unknown) (unknown) Allergies (units (unkn own) date) unknown) (unknown) (no (unknown) (unknown) Allergy/AdvReac (units (unknown) date) Type Severity unknown) Reaction Status Date / Time (unknown) (no (unknown) (unknown) Amorphous Sediment (units (unknown) date) 1 unknown) (unknown) (no (unknown) (unknown) Amorphous Sediment (units (unknown) date) unknown) (unknown) (no (unknown) (unknown) Auscultation:?kei (units (unknown) date) r to auscultation unknown) bilaterally (unknown) (no (unknown) (unknown) BUN (7-17) mg/dL (units (unknown) date) unknown) (unknown) (no (unknown) (unknown) BUN 15 (7-17) (units ( unknown) date) mg/dL unknown) (unknown) (no (unknown) (unknown) BUN/Creatinine (units (unknown) date) Ratio (6-22) unknown) (unknown) (no (unknown) (unknown) BUN/Creatinine (units (unknown) date) Ratio 30.6 H (6-22) unknown) (unknown) (no (unknown) (unknown) Baso # (Auto) (units ( unknown) date) (0-100) /uL unknown) (unknown) (no (unknown) (unknown) Baso # (Auto) 0 (units (unknown) date) (0-100) /uL unknown) (unknown) (no (unknown) (unknown) Baso % (Auto) (units ( unknown) date) (0-2) % unknown) (unknown) (no (unknown) (unknown) Baso % (Auto) 0.3 (units (unknown) date) (0-2) % unknown) (unknown) (no (unknown) (unknown) Bedside Urine (units ( unknown) date) Bilirubin - unknown) Negative (unknown) (no (unknown) (unknown) Bedside Urine (units ( unknown) date) Glucose Negative unknown) (unknown) (no (unknown) (unknown) Bedside Urine (units ( unknown) date) Ketone - Negative unknown) (unknown) (no (unknown) (unknown) Bedside Urine (units ( unknown) date) Leukocytes +/- 15 unknown) (unknown) (no (unknown) (unknown) Bedside Urine (units ( unknown) date) Nitrite - Negative unknown) (unknown) (no (unknown) (unknown) Bedside Urine (units ( unknown) date) Occult Blood unknown) (unknown) (no (unknown) (unknown) Bedside Urine (units ( unknown) date) Protein +/- 15 unknown) (unknown) (no (unknown) (unknown) Bedside Urine (units ( unknown) date) Urobilinogen - unknown) Negative (unknown) (no (unknown) (unknown) Bedside Urine pH 6 (units (unknown) date) unknown) (unknown) (no (unknown) (unknown) Blood Pressure (units (unknown) date) 101/50 L 11/25/22 unknown) 12:55 (unknown) (no (unknown) (unknown) Blood Pressure (units (unknown) date) 101/50 L 98/53 L unknown) 99/55 L (unknown) (no (unknown) (unknown) Blood Type A (units (u nknown) date) Negative unknown) (unknown) (no (unknown) (unknown) Blood Type (units (unk nown) date) unknown) (unknown) (no (unknown) (unknown) Calcium (8.4-10.2) (units (unknown) date) mg/dL unknown) (unknown) (no (unknown) (unknown) Calcium 8.3 L (units ( unknown) date) (8.4-10.2) mg/dL unknown) (unknown) (no (unknown) (unknown) Carbon Dioxide (units (unknown) date) (22-32) mmol/L unknown) (unknown) (no (unknown) (unknown) Carbon Dioxide 22 (units (unknown) date) (22-32) mmol/L unknown) (unknown) (no (unknown) (unknown) Cardio (units (unkno wn) date) unknown) (unknown) (no (unknown) (unknown) Cardiovascular (units (unknown) date) unknown) (unknown) (no (unknown) (unknown) Cardiovascular: (units (unknown) date) Denies chest pain, unknown) Denies irregular heart rhythm, Denies (unknown) (no (unknown) (unknown) Chief complaint: (units (unknown) date) Vaginal Bleeding unknown) (unknown) (no (unknown) (unknown) Chloride (98-107) (units (unknown) date) mmol/L unknown) (unknown) (no (unknown) (unknown) Chloride 104 (units (u nknown) date) (98-107) mmol/L unknown) (unknown) (no (unknown) (unknown) Clinical (units (unkno wn) date) Impression: unknown) (unknown) (no (unknown) (unknown) Complete Blood (units (unknown) date) Count AUTO DIFF unknown) Stat (unknown) (no (unknown) (unknown) Comprehensive (units ( unknown) date) Metabolic Panel unknown) Stat (unknown) (no (unknown) (unknown) Const (units (unkno wn) date) unknown) (unknown) (no (unknown) (unknown) Constitutional (units (unknown) date) unknown) (unknown) (no (unknown) (unknown) Constitutional: (units (unknown) date) Denies chills, unknown) Denies fatigue, Denies fever(s), Denies frequent (unknown) (no (unknown) (unknown) Course (units (unkno wn) date) unknown) (unknown) (no (unknown) (unknown) Creatinine (units (unk nown) date) (0.52-1.04) mg/dL unknown) (unknown) (no (unknown) (unknown) Creatinine 0.49 L (units (unknown) date) (0.52-1.04) mg/dL unknown) (unknown) (no (unknown) (unknown) DI for Vaginal (units (unknown) date) Bleeding During unknown) (unknown) (no (unknown) (unknown) : 1980 (units (unknown) date) Acct:[id number] unknown) (unknown) (no (unknown) (unknown) Date of Service: (units (unknown) date) 11/25/22 unknown) (unknown) (no (unknown) (unknown) Denies frequent (units (unknown) date) falls, Denies loss unknown) of vision, Denies numbness, Denies tingling (unknown) (no (unknown) (unknown) Denies loss of (units (unknown) date) vision unknown) (unknown) (no (unknown) (unknown) Denies numbness (units (unknown) date) and Denies tingling unknown) (unknown) (no (unknown) (unknown) Departure (units (unkn own) date) unknown) (unknown) (no (unknown) (unknown) Discharge Plan (units (unknown) date) unknown) (unknown) (no (unknown) (unknown) Discontinued (units (u nknown) date) Medications unknown) (unknown) (no (unknown) (unknown) Documented By: RB (units (unknown) date) unknown) (unknown) (no (unknown) (unknown) Dr. Meyer for (units (unknown) date) tomorrow. Please unknown) keep that appointment as scheduled. Return to (unknown) (no (unknown) (unknown) ED Orders (units (unkn own) date) unknown) (unknown) (no (unknown) (unknown) ENT (units (unkno wn) date) unknown) (unknown) (no (unknown) (unknown) ER Physician: (units ( unknown) date) Brandan,Hyma P.A-C unknown) (unknown) (no (unknown) (unknown) Ears, Nose, Mouth, (units (unknown) date) and Throat: Denies unknown) change in voice, Denies dizziness, Denies (unknown) (no (unknown) (unknown) Ears:?hearing (units ( unknown) date) grossly normal unknown) bilaterally (unknown) (no (unknown) (unknown) Effort + (units (unkno wn) date) Inspection:?normal unknown) respiratory effort (unknown) (no (unknown) (unknown) Emergency Report (units (unknown) date) unknown) (unknown) (no (unknown) (unknown) Endocrine (units (unkn own) date) unknown) (unknown) (no (unknown) (unknown) Endocrine: Denies (units (unknown) date) fatigue, Denies unknown) flushing and Denies palpitations (unknown) (no (unknown) (unknown) Eos # (Auto) (units (u nknown) date) (0-450) /uL unknown) (unknown) (no (unknown) (unknown) Eos # (Auto) 0 (units (unknown) date) (0-450) /uL unknown) (unknown) (no (unknown) (unknown) Eos % (Auto) (2-4) (units (unknown) date) % unknown) (unknown) (no (unknown) (unknown) Eos % (Auto) 0.7 L (units (unknown) date) (2-4) % unknown) (unknown) (no (unknown) (unknown) Esterase (units (unkno wn) date) unknown) (unknown) (no (unknown) (unknown) Estimated GFR > 60 (units (unknown) date) (>60) mL/min unknown) (unknown) (no (unknown) (unknown) Estimated GFR (units ( unknown) date) (>60) mL/min unknown) (unknown) (no (unknown) (unknown) Exam Narrative: (units (unknown) date) unknown) (unknown) (no (unknown) (unknown) Exam (units (unkno wn) date) unknown) (unknown) (no (unknown) (unknown) Eyes (units (unkno wn) date) unknown) (unknown) (no (unknown) (unknown) Eyes: Denies (units (u nknown) date) change in vision, unknown) Denies eye discharge, Denies irritation and (unknown) (no (unknown) (unknown) Face and (units (unkno wn) date) sinus:?normal unknown) facial exam and sinuses nontender (unknown) (no (unknown) (unknown) Fibrinogen (units (unk nown) date) (211-428) mg/dL unknown) (unknown) (no (unknown) (unknown) Fibrinogen 398 (units (unknown) date) (211-428) mg/dL unknown) (unknown) (no (unknown) (unknown) Fibrinogen Stat (units (unknown) date) unknown) (unknown) (no (unknown) (unknown) GI (units (unkno wn) date) unknown) (unknown) (no (unknown) (unknown) Gastrointestinal (units (unknown) date) unknown) (unknown) (no (unknown) (unknown) Gastrointestinal: (units (unknown) date) Denies abdominal unknown) pain, Denies change in bowel habits, Denies (unknown) (no (unknown) (unknown) General (units (unkno wn) date) unknown) (unknown) (no (unknown) (unknown) General:?appearanc (units (unknown) date) e normal, both eyes unknown) and all related structures (unknown) (no (unknown) (unknown) General:?cooperati (units (unknown) date) ve, healthy unknown) appearing and comfortable (unknown) (no (unknown) (unknown) General:?patient (units (unknown) date) alert, patient unknown) awake and patient oriented x3 (unknown) (no (unknown) (unknown) Genitourinary (units ( unknown) date) unknown) (unknown) (no (unknown) (unknown) Genitourinary: (units (unknown) date) Reports abnormal unknown) vaginal bleeding, Denies hematuria, Reports (unknown) (no (unknown) (unknown) Globulin (1.7-4.1) (units (unknown) date) g/dL unknown) (unknown) (no (unknown) (unknown) Globulin 3.2 (units (u nknown) date) (1.7-4.1) g/dL unknown) (unknown) (no (unknown) (unknown) Glucose (70-100) (units (unknown) date) mg/dL unknown) (unknown) (no (unknown) (unknown) Glucose 84 (units (unk nown) date) (70-100) mg/dL unknown) (unknown) (no (unknown) (unknown) HCG Quantitative (units (unknown) date) /Beta subunit Stat unknown) (unknown) (no (unknown) (unknown) HCG, Quant 47625 (units (unknown) date) mIU/mL unknown) (unknown) (no (unknown) (unknown) HCG, Quant mIU/mL (units (unknown) date) unknown) (unknown) (no (unknown) (unknown) HENMT (units (unkno wn) date) unknown) (unknown) (no (unknown) (unknown) HPI - (units (unknown) date) unknown) (unknown) (no (unknown) (unknown) HPI Narrative: (units (unknown) date) unknown) (unknown) (no (unknown) (unknown) Hct (36-46) % (units ( unknown) date) unknown) (unknown) (no (unknown) (unknown) Hct 31.5 L (36-46) (units (unknown) date) % unknown) (unknown) (no (unknown) (unknown) Head:?normal to (units (unknown) date) inspection unknown) (unknown) (no (unknown) (unknown) Hematologic/Lympha (units (unknown) date) tic unknown) (unknown) (no (unknown) (unknown) Hematologic/Lympha (units (unknown) date) tic: Denies easy unknown) bruising (unknown) (no (unknown) (unknown) Hgb (12.0-16.0) (units (unknown) date) g/dL unknown) (unknown) (no (unknown) (unknown) Hgb 10.6 L (units (unk nown) date) (12.0-16.0) g/dL unknown) (unknown) (no (unknown) (unknown) History of Present (units (unknown) date) Illness unknown) (unknown) (no (unknown) (unknown) Home Medications (units (unknown) date) unknown) (unknown) (no (unknown) (unknown) INR (0.9-1.3) (units ( unknown) date) unknown) (unknown) (no (unknown) (unknown) INR 0.9 (0.9-1.3) (units (unknown) date) unknown) (unknown) (no (unknown) (unknown) Initial Vital (units ( unknown) date) Signs unknown) (unknown) (no (unknown) (unknown) Initial Vital (units ( unknown) date) Signs: unknown) (unknown) (no (unknown) (unknown) Instructions: DI (units (unknown) date) for Urinary Tract unknown) Infection (UTI), DI for Bacterial Vaginosis, (unknown) (no (unknown) (unknown) Integumentary/[place] (units (unknown) date) sts unknown) (unknown) (no (unknown) (unknown) [facility] (units (unknown) date) [address] unknown) [place] [address] (unknown) (no (unknown) (unknown) Lab Data (units (unkno wn) date) unknown) (unknown) (no (unknown) (unknown) Lab Results (units (un known) date) unknown) (unknown) (no (unknown) (unknown) Labs: (units (unkno wn) date) unknown) (unknown) (no (unknown) (unknown) Last Admin: (units (un known) date) 11/25/22 15:16 unknown) Dose: 1,500 unit (unknown) (no (unknown) (unknown) Lip/Tongue/Throat (units (unknown) date) unknown) (unknown) (no (unknown) (unknown) Lymph # (Auto) (units (unknown) date) (5382-9434) /uL unknown) (unknown) (no (unknown) (unknown) Lymph # (Auto) (units (unknown) date) 1400 (1098-6801) unknown) /uL (unknown) (no (unknown) (unknown) Lymph % (Auto) (units (unknown) date) (25-40) % unknown) (unknown) (no (unknown) (unknown) Lymph % (Auto) (units (unknown) date) 25.2 (25-40) % unknown) (unknown) (no (unknown) (unknown) MCH (26-34) PG (units (unknown) date) unknown) (unknown) (no (unknown) (unknown) MCH 31.6 (26-34) (units (unknown) date) PG unknown) (unknown) (no (unknown) (unknown) MCHC (30-36) % (units (unknown) date) unknown) (unknown) (no (unknown) (unknown) MCHC 33.7 (30-36) (units (unknown) date) % unknown) (unknown) (no (unknown) (unknown) MCV (80-100) fL (units (unknown) date) unknown) (unknown) (no (unknown) (unknown) MCV 93.8 (80-100) (units (unknown) date) fL unknown) (unknown) (no (unknown) (unknown) MDM - OB/Uterine (units (unknown) date) Contractions unknown) (unknown) (no (unknown) (unknown) MDM Narrative (units ( unknown) date) unknown) (unknown) (no (unknown) (unknown) Medical decision (units (unknown) date) making narrative: unknown) (unknown) (no (unknown) (unknown) Medication (units (unk nown) date) Instructions unknown) Recorded Confirmed (unknown) (no (unknown) (unknown) Medication (units (unk nown) date) Instructions unknown) Recorded (unknown) (no (unknown) (unknown) Miscellaneous,Doct (units (unknown) date) or, MD [Primary unknown) Care Provider] (unknown) (no (unknown) (unknown) Mode of arrival: (units (unknown) date) Ambulatory unknown) (unknown) (no (unknown) (unknown) [place] # (Auto) (units ( unknown) date) (0-900) /uL unknown) (unknown) (no (unknown) (unknown) [place] # (Auto) 300 (units (unknown) date) (0-900) /uL unknown) (unknown) (no (unknown) (unknown) [place] % (Auto) (units ( unknown) date) (3-14) % unknown) (unknown) (no (unknown) (unknown) [place] % (Auto) 5.8 (units (unknown) date) (3-14) % unknown) (unknown) (no (unknown) (unknown) Mouth:?oral (units (un known) date) mucosae normal unknown) (unknown) (no (unknown) (unknown) Musculoskeletal (units (unknown) date) unknown) (unknown) (no (unknown) (unknown) Musculoskeletal: (units (unknown) date) Denies back pain, unknown) Denies muscle weakness, Denies neck pain, (unknown) (no (unknown) (unknown) NOW ONE (units (unkno wn) date) unknown) (unknown) (no (unknown) (unknown) Narrative (units (unkn own) date) unknown) (unknown) (no (unknown) (unknown) Neck (units (unkno wn) date) unknown) (unknown) (no (unknown) (unknown) Neck:?normal (units (u nknown) date) visual inspection unknown) and no lymphadenopathy noted (unknown) (no (unknown) (unknown) Neuro (units (unkno wn) date) unknown) (unknown) (no (unknown) (unknown) Neurologic (units (unk nown) date) unknown) (unknown) (no (unknown) (unknown) Neurologic: Denies (units (unknown) date) behavioral changes, unknown) Denies confusion, Denies dizziness, (unknown) (no (unknown) (unknown) Neut # (Auto) (units ( unknown) date) (9739-2344) /uL unknown) (unknown) (no (unknown) (unknown) Neut # (Auto) 3900 (units (unknown) date) (8162-1961) /uL unknown) (unknown) (no (unknown) (unknown) Neut % (Auto) (units ( unknown) date) (50-75) % unknown) (unknown) (no (unknown) (unknown) Neut % (Auto) 68.0 (units (unknown) date) (50-75) % unknown) (unknown) (no (unknown) (unknown) New (units (unkno wn) date) unknown) (unknown) (no (unknown) (unknown) No Action (units (unkn own) date) unknown) (unknown) (no (unknown) (unknown) Nose:?external (units (unknown) date) nose normal unknown) (unknown) (no (unknown) (unknown) Ordered: (units (unkno wn) date) unknown) (unknown) (no (unknown) (unknown) Orders (units (unkno wn) date) unknown) (unknown) (no (unknown) (unknown) Oxygen Delivery (units (unknown) date) Method 11/25/22 unknown) 12:55 (unknown) (no (unknown) (unknown) Oxygen Delivery (units (unknown) date) Method Room Air unknown) Room Air (unknown) (no (unknown) (unknown) PT (10.1-12.7) (units (unknown) date) SECONDS unknown) (unknown) (no (unknown) (unknown) PT 10.7 (units (unkno wn) date) (10.1-12.7) SECONDS unknown) (unknown) (no (unknown) (unknown) PT [Prothrombin (units (unknown) date) Time INR] Stat unknown) (unknown) (no (unknown) (unknown) PTT [Partial (units (u nknown) date) Thromboplastin unknown) Time] Stat (unknown) (no (unknown) (unknown) Patient (units (unkno wn) date) Disposition: Home unknown) (unknown) (no (unknown) (unknown) Patient: (units (unkno wn) date) Yu Gilbert M unknown) MR#: [id number] (unknown) (no (unknown) (unknown) Penicillins (units (un known) date) Allergy Severe unknown) Swelling Verified 10/30/22 15:44 (unknown) (no (unknown) (unknown) Plt Count (units (unkn own) date) (150-400) X103/uL unknown) (unknown) (no (unknown) (unknown) Plt Count 265 (units ( unknown) date) (150-400) X103/uL unknown) (unknown) (no (unknown) (unknown) Potassium (units (unkn own) date) (3.4-5.1) mmol/L unknown) (unknown) (no (unknown) (unknown) Potassium 3.9 (units ( unknown) date) (3.4-5.1) mmol/L unknown) (unknown) (no (unknown) (unknown) Prescriptions: (units (unknown) date) unknown) (unknown) (no (unknown) (unknown) Previous Rx's (units ( unknown) date) unknown) (unknown) (no (unknown) (unknown) Psychiatric (units (un known) date) unknown) (unknown) (no (unknown) (unknown) Psychiatric: Denies (units (unknown) date) anxiety, Denies unknown) behavioral changes, Denies confusion, Denies (unknown) (no (unknown) (unknown) Pulse Oximetry 97 (units (unknown) date) 11/25/22 12:55 unknown) (unknown) (no (unknown) (unknown) Pulse Oximetry 97 (units (unknown) date) 98 98 unknown) (unknown) (no (unknown) (unknown) Pulse Rate 81 (units ( unknown) date) 11/25/22 12:55 unknown) (unknown) (no (unknown) (unknown) Pulse Rate 81 79 (units (unknown) date) 79 unknown) (unknown) (no (unknown) (unknown) RBC (4.0-5.2) (units ( unknown) date) X106/uL unknown) (unknown) (no (unknown) (unknown) RBC 3.36 L (units (unk nown) date) (4.0-5.2) X106/uL unknown) (unknown) (no (unknown) (unknown) RDW (11.6-14.8) % (units (unknown) date) unknown) (unknown) (no (unknown) (unknown) RDW 13.8 (units (unkno wn) date) (11.6-14.8) % unknown) (unknown) (no (unknown) (unknown) ROS Unobtainable: (units (unknown) date) All systems unknown) reviewed + are unremarkable except as noted in HPI (unknown) (no (unknown) (unknown) Rate:?regular rate (units (unknown) date) unknown) (unknown) (no (unknown) (unknown) Referrals: (units (unk nown) date) unknown) (unknown) (no (unknown) (unknown) Related Data (units (u nknown) date) unknown) (unknown) (no (unknown) (unknown) Resp (units (unkno wn) date) unknown) (unknown) (no (unknown) (unknown) Respiratory Rate (units (unknown) date) 17 11/25/22 12:55 unknown) (unknown) (no (unknown) (unknown) Respiratory Rate (units (unknown) date) 17 18 unknown) (unknown) (no (unknown) (unknown) Respiratory (units (un known) date) unknown) (unknown) (no (unknown) (unknown) Respiratory: Denies (units (unknown) date) cough, Denies unknown) dyspnea, Denies dyspnea on exertion and Denies (unknown) (no (unknown) (unknown) Review of Systems (units (unknown) date) unknown) (unknown) (no (unknown) (unknown) Rho Immune (units (unk nown) date) Globulin (Rho(D) unknown) Immune Globulin 1,500 Unit Syringe) 1,500 unit IM (unknown) (no (unknown) (unknown) Rhythm:?regular (units (unknown) date) rhythm unknown) (unknown) (no (unknown) (unknown) Rx Instructions: (units (unknown) date) unknown) (unknown) (no (unknown) (unknown) Signed By: (units (unk nown) date) unknown) (unknown) (no (unknown) (unknown) Skin/Breast: (units (u nknown) date) Denies pruritus, unknown) Denies erythema, Denies rash and Denies wounds (unknown) (no (unknown) (unknown) Sodium (137-145) (units (unknown) date) mmol/L unknown) (unknown) (no (unknown) (unknown) Sodium 135 L (units (u nknown) date) (137-145) mmol/L unknown) (unknown) (no (unknown) (unknown) Source: patient (units (unknown) date) unknown) (unknown) (no (unknown) (unknown) Stand Alone Forms: (units (unknown) date) Patient Portal/API unknown) (unknown) (no (unknown) (unknown) Stated complaint: (units (unknown) date) 14 weeks unknown) preg/bleeding (unknown) (no (unknown) (unknown) Stop: 11/25/22 (units (unknown) date) 14:56 unknown) (unknown) (no (unknown) (unknown) Temperature 98 F (units (unknown) date) 11/25/22 12:55 unknown) (unknown) (no (unknown) (unknown) Temperature 98 F (units (unknown) date) unknown) (unknown) (no (unknown) (unknown) Throat:?posterior (units (unknown) date) oropharynx normal unknown) (unknown) (no (unknown) (unknown) Time Seen by (units (u nknown) date) Provider: 11/25/22 unknown) 12:46 (unknown) (no (unknown) (unknown) Total Bilirubin < (units (unknown) date) 0.1 L (0.2-1.3) unknown) mg/dL (unknown) (no (unknown) (unknown) Total Bilirubin (units (unknown) date) (0.2-1.3) mg/dL unknown) (unknown) (no (unknown) (unknown) Total Protein (units ( unknown) date) (6.3-8.2) g/dL unknown) (unknown) (no (unknown) (unknown) Total Protein 6.5 (units (unknown) date) (6.3-8.2) g/dL unknown) (unknown) (no (unknown) (unknown) UA is positive for (units (unknown) date) UTI. Labs within unknown) normal limits. Ultrasound shows a single (unknown) (no (unknown) (unknown) US OB limited Stat (units (unknown) date) unknown) (unknown) (no (unknown) (unknown) Ur Squamous Epith (units (unknown) date) Cells (0-5/HPF) unknown) (unknown) (no (unknown) (unknown) Ur Squamous Epith (units (unknown) date) Cells 5-10 /hpf H unknown) (0-5/HPF) (unknown) (no (unknown) (unknown) Urine Bacteria (units (unknown) date) (None) unknown) (unknown) (no (unknown) (unknown) Urine Bacteria (units (unknown) date) Many (>30) H (None) unknown) (unknown) (no (unknown) (unknown) Urine Culture Stat (units (unknown) date) unknown) (unknown) (no (unknown) (unknown) Urine Dip (units (unkn own) date) unknown) (unknown) (no (unknown) (unknown) Urine Microscopic (units (unknown) date) Stat unknown) (unknown) (no (unknown) (unknown) Urine Mucus (units (un known) date) (Negative) unknown) (unknown) (no (unknown) (unknown) Urine Mucus 1+ H (units (unknown) date) (Negative) unknown) (unknown) (no (unknown) (unknown) Urine RBC (units (unkn own) date) (0-5/HPF) unknown) (unknown) (no (unknown) (unknown) Urine RBC 5-10/hpf (units (unknown) date) H (0-5/HPF) unknown) (unknown) (no (unknown) (unknown) Urine Specific (units (unknown) date) [place] 1.020 unknown) (unknown) (no (unknown) (unknown) Urine WBC (units (unkn own) date) (0-5/HPF) unknown) (unknown) (no (unknown) (unknown) Urine WBC 5-10/hpf (units (unknown) date) H (0-5/HPF) unknown) (unknown) (no (unknown) (unknown) Vaginal bleeding, (units (unknown) date) UTI (urinary tract unknown) infection), Bacterial vaginosis (unknown) (no (unknown) (unknown) Vital Signs - 8 hr (units (unknown) date) unknown) (unknown) (no (unknown) (unknown) Vital Signs (units (un known) date) unknown) (unknown) (no (unknown) (unknown) Vital signs: (units (u nknown) date) unknown) (unknown) (no (unknown) (unknown) WBC (4.5-11.0) (units (unknown) date) X103/uL unknown) (unknown) (no (unknown) (unknown) WBC 5.7 (4.5-11.0) (units (unknown) date) X103/uL unknown) (unknown) (no (unknown) (unknown) Wet Prep Tric BV (units (unknown) date) [place] Stat unknown) (unknown) (no (unknown) (unknown) You were evaluated (units (unknown) date) in the ED today for unknown) vaginal bleeding during . Your (unknown) (no (unknown) (unknown) [Embedded Image (units (unknown) date) Not Available] unknown) (unknown) (no (unknown) (unknown) and Denies (units (unk nown) date) orthopnea unknown) (unknown) (no (unknown) (unknown) and Denies (units (unk nown) date) weakness unknown) (unknown) (no (unknown) (unknown) and below (units (unkn own) date) unknown) (unknown) (no (unknown) (unknown) and has a (units (unkn own) date) appointment for unknown) tomorrow. Patient had a normal ultrasound 3 days ago (unknown) (no (unknown) (unknown) beats per minute. (units (unknown) date) Your urine was unknown) positive for a UTI. You also tested positive (unknown) (no (unknown) (unknown) capsule (Macrobid) (units (unknown) date) unknown) (unknown) (no (unknown) (unknown) caregiver, is on (units (unknown) date) light duty, however unknown) was trying to help lift patient's earlier (unknown) (no (unknown) (unknown) chest pain, (units (un known) date) shortness of unknown) breath, nausea, vomiting, flank pain, dysuria, (unknown) (no (unknown) (unknown) depression, Denies (units (unknown) date) homicidal ideation unknown) and Denies suicidal ideation (unknown) (no (unknown) (unknown) diarrhea, Denies (units (unknown) date) nausea and Denies unknown) vomiting (unknown) (no (unknown) (unknown) discharge since (units (unknown) date) yesterday, is not unknown) like cottage cheese, more runny and odorless. (unknown) (no (unknown) (unknown) endorses a feeling (units (unknown) date) of pelvic and unknown) suprapubic heaviness. Patient states she is a (unknown) (no (unknown) (unknown) falls, Denies (units ( unknown) date) lethargy and Denies unknown) weakness (unknown) (no (unknown) (unknown) for bacterial (units ( unknown) date) vaginosis. You are unknown) being prescribed 2 antibiotics for these (unknown) (no (unknown) (unknown) infections. Please (units (unknown) date) take them as unknown) prescribed. Given that you are blood type A (unknown) (no (unknown) (unknown) lightheadedness, (units (unknown) date) Denies unknown) palpitations, Denies dyspnea, Denies dyspnea on exertion (unknown) (no (unknown) (unknown) lightheadedness, (units (unknown) date) dizziness, syncope. unknown) Patient denies pelvic cramping, but (unknown) (no (unknown) (unknown) living (units (unkno wn) date) intrauterine unknown) gestation that is estimated at 16 weeks. heart rate (unknown) (no (unknown) (unknown) metronidazole 500 (units (unknown) date) mg tablet 500 mg PO unknown) Q12H 7 days #14 tabs 11/25/22 (unknown) (no (unknown) (unknown) metronidazole 500 (units (unknown) date) mg tablet unknown) (unknown) (no (unknown) (unknown) monohydrate/macroc (units (unknown) date) rystals 100 mg unknown) (unknown) (no (unknown) (unknown) must administer (units (unknown) date) with a meal/food unknown) (unknown) (no (unknown) (unknown) neck pain, Denies (units (unknown) date) sore throat and unknown) Denies throat swelling (unknown) (no (unknown) (unknown) negative, you were (units (unknown) date) also given a RhoGAM unknown) shot. You also have a appointment with (unknown) (no (unknown) (unknown) nitrofurantoin 100 (units (unknown) date) mg PO Q12H 7 days unknown) #14 caps 11/25/22 (unknown) (no (unknown) (unknown) nitrofurantoin (units (unknown) date) monohyd/m-cryst unknown) [Macrobid] 100 mg capsule (unknown) (no (unknown) (unknown) of (units (unkno wn) date) unknown) (unknown) (no (unknown) (unknown) other. Will obtain (units (unknown) date) labs, UA, obstetric unknown) ultrasound, wet prep. (unknown) (no (unknown) (unknown) palpation. There (units (unknown) date) is no CVA unknown) tenderness. (unknown) (no (unknown) (unknown) pelvic pain, (units (u nknown) date) Denies flank pain, unknown) Denies urinary incontinence, Denies urinary (unknown) (no (unknown) (unknown) placental abruption (units (unknown) date) versus threatened unknown) miscarriage versus vaginal bleeding during (unknown) (no (unknown) (unknown) placental (units (unkn own) date) abruption with her unknown) prior pregnancies. Patient sees OBGYN Dr. Meyer, (unknown) (no (unknown) (unknown) versus (units (unknown) date) UTI versus unknown) bacterial vaginosis versus yeast infection versus (unknown) (no (unknown) (unknown) prenat.vits,karina,mi (units (unknown) date) [id number] 1 tab unknown) PO DAILY 09/19/22 11/25/22 (unknown) (no (unknown) (unknown) prenat.vits,karina,mi (units (unknown) date) [id number]-[id number] Tablet unknown) (unknown) (no (unknown) (unknown) shellfish derived (units (unknown) date) AdvReac Mild unknown) Diarrhea Verified 10/30/22 15:44 (unknown) (no (unknown) (unknown) that showed a (units ( unknown) date) heart tone of unknown) 145. Patient states she is had some vaginal (unknown) (no (unknown) (unknown) the ED if you have (units (unknown) date) significantly unknown) increased bleeding, you have trouble breathing, (unknown) (no (unknown) (unknown) today after which (units (unknown) date) her vaginal unknown) bleeding started. Patient has a history of (unknown) (no (unknown) (unknown) ultrasound shows a (units (unknown) date) 16-week-old live unknown) with a heart rate of 147 (unknown) (no (unknown) (unknown) urgency and (units (un known) date) Reports vaginal unknown) discharge (unknown) (no (unknown) (unknown) vaginal bleeding, (units (unknown) date) lower abdominal unknown) pressure. Concern for placenta previa versus (unknown) (no (unknown) (unknown) vaginal bleeding, (units (unknown) date) lower abdominal unknown) pressure. Patient denies fevers, chills, (unknown) (no (unknown) (unknown) wheezing (units (unkno wn) date) unknown) (unknown) (no (unknown) (unknown) you experience (units (unknown) date) chest pain, unknown) worsening abdominal pain. Result panel [id number] (unknown) (no (unknown) (unknown) (no value) (units (unk nown) date) unknown) (unknown) (no (unknown) (unknown) <Electronically (units (unknown) date) signed by He unknown) P.A-C Brandan> (unknown) (no (unknown) (unknown) 11/25/22 11/25/22 (units (unknown) date) 11/25/22 unknown) Range/Units (unknown) (no (unknown) (unknown) 11/25/22 11/25/22 (units (unknown) date) Range/Units unknown) (unknown) (no (unknown) (unknown) 11/25/22 12:54 (units (unknown) date) unknown) (unknown) (no (unknown) (unknown) 11/25/22 13:00 (units (unknown) date) unknown) (unknown) (no (unknown) (unknown) 11/25/22 13:30 (units (unknown) date) unknown) (unknown) (no (unknown) (unknown) 11/25/22 14:20 (units (unknown) date) unknown) (unknown) (no (unknown) (unknown) 11/25/22 2032 (units ( unknown) date) unknown) (unknown) (no (unknown) (unknown) 11/25/22 (units (unkno wn) date) unknown) (unknown) (no (unknown) (unknown) [id number] (units (unkno wn) date) unknown) (unknown) (no (unknown) (unknown) 1 tab PO DAILY (units (unknown) date) unknown) (unknown) (no (unknown) (unknown) 100 mg PO Q12H 7 (units (unknown) date) Days Qty: 14 0RF unknown) (unknown) (no (unknown) (unknown) 12:55 11/25/22 (units (unknown) date) unknown) (unknown) (no (unknown) (unknown) 13:00 13:30 13:30 (units (unknown) date) unknown) (unknown) (no (unknown) (unknown) 13:30 13:30 (units (un known) date) unknown) (unknown) (no (unknown) (unknown) 147 beats per (units ( unknown) date) minute. Placental unknown) position is posterior without a previa. (unknown) (no (unknown) (unknown) 14:27 11/25/22 (units (unknown) date) unknown) (unknown) (no (unknown) (unknown) 16:11 (units (unkno wn) date) unknown) (unknown) (no (unknown) (unknown) 41-year-old female (units (unknown) date) who is 16 weeks unknown) presents to the ED with 1 day of (unknown) (no (unknown) (unknown) 500 mg PO Q12H 7 (units (unknown) date) Days Qty: 14 0RF unknown) (unknown) (no (unknown) (unknown) ABO RH Type Stat (units (unknown) date) unknown) (unknown) (no (unknown) (unknown) ALT (<35) IU/L (units (unknown) date) unknown) (unknown) (no (unknown) (unknown) ALT 19 (<35) IU/L (units (unknown) date) unknown) (unknown) (no (unknown) (unknown) APTT (26-36) (units (u nknown) date) SECONDS unknown) (unknown) (no (unknown) (unknown) APTT 28 (26-36) (units (unknown) date) SECONDS unknown) (unknown) (no (unknown) (unknown) AST (14-36) IU/L (units (unknown) date) unknown) (unknown) (no (unknown) (unknown) AST 22 (14-36) (units (unknown) date) IU/L unknown) (unknown) (no (unknown) (unknown) Abdomen is soft, (units (unknown) date) distended unknown) appropriately for 6 weeks' gestation, nontender to (unknown) (no (unknown) (unknown) Activity (units (unkno wn) date) Restrictions/Additi unknown) onal Instructions: (unknown) (no (unknown) (unknown) Age/Sex: 41 / F (units (unknown) date) unknown) (unknown) (no (unknown) (unknown) Albumin (3.5-5.0) (units (unknown) date) g/dL unknown) (unknown) (no (unknown) (unknown) Albumin 3.3 L (units ( unknown) date) (3.5-5.0) g/dL unknown) (unknown) (no (unknown) (unknown) Albumin/Globulin (units (unknown) date) Ratio (1.0-2.8) unknown) (unknown) (no (unknown) (unknown) Albumin/Globulin (units (unknown) date) Ratio 1.0 (1.0-2.8) unknown) (unknown) (no (unknown) (unknown) Alkaline (units (unkno wn) date) Phosphatase unknown) (38-126) U/L (unknown) (no (unknown) (unknown) Alkaline (units (unkno wn) date) Phosphatase 44 unknown) (38-126) U/L (unknown) (no (unknown) (unknown) Allergic/Immunolog (units (unknown) date) ic unknown) (unknown) (no (unknown) (unknown) Allergic/Immunolog (units (unknown) date) ic: Denies unknown) urticaria, Denies throat swelling and Denies (unknown) (no (unknown) (unknown) Allergies (units (unkn own) date) unknown) (unknown) (no (unknown) (unknown) Allergy/AdvReac (units (unknown) date) Type Severity unknown) Reaction Status Date / Time (unknown) (no (unknown) (unknown) Amorphous Sediment (units (unknown) date) 1 unknown) (unknown) (no (unknown) (unknown) Amorphous Sediment (units (unknown) date) unknown) (unknown) (no (unknown) (unknown) Auscultation:?kei (units (unknown) date) r to auscultation unknown) bilaterally (unknown) (no (unknown) (unknown) BUN (7-17) mg/dL (units (unknown) date) unknown) (unknown) (no (unknown) (unknown) BUN 15 (7-17) (units ( unknown) date) mg/dL unknown) (unknown) (no (unknown) (unknown) BUN/Creatinine (units (unknown) date) Ratio (6-22) unknown) (unknown) (no (unknown) (unknown) BUN/Creatinine (units (unknown) date) Ratio 30.6 H (6-22) unknown) (unknown) (no (unknown) (unknown) Baso # (Auto) (units ( unknown) date) (0-100) /uL unknown) (unknown) (no (unknown) (unknown) Baso # (Auto) 0 (units (unknown) date) (0-100) /uL unknown) (unknown) (no (unknown) (unknown) Baso % (Auto) (units ( unknown) date) (0-2) % unknown) (unknown) (no (unknown) (unknown) Baso % (Auto) 0.3 (units (unknown) date) (0-2) % unknown) (unknown) (no (unknown) (unknown) Bedside Urine (units ( unknown) date) Bilirubin - unknown) Negative (unknown) (no (unknown) (unknown) Bedside Urine (units ( unknown) date) Glucose Negative unknown) (unknown) (no (unknown) (unknown) Bedside Urine (units ( unknown) date) Ketone - Negative unknown) (unknown) (no (unknown) (unknown) Bedside Urine (units ( unknown) date) Leukocytes +/- 15 unknown) (unknown) (no (unknown) (unknown) Bedside Urine (units ( unknown) date) Nitrite - Negative unknown) (unknown) (no (unknown) (unknown) Bedside Urine (units ( unknown) date) Occult Blood unknown) (unknown) (no (unknown) (unknown) Bedside Urine (units ( unknown) date) Protein +/- 15 unknown) (unknown) (no (unknown) (unknown) Bedside Urine (units ( unknown) date) Urobilinogen - unknown) Negative (unknown) (no (unknown) (unknown) Bedside Urine pH 6 (units (unknown) date) unknown) (unknown) (no (unknown) (unknown) Blood Pressure (units (unknown) date) 101/50 L 11/25/22 unknown) 12:55 (unknown) (no (unknown) (unknown) Blood Pressure (units (unknown) date) 101/50 L 98/53 L unknown) 99/55 L (unknown) (no (unknown) (unknown) Blood Type A (units (u nknown) date) Negative unknown) (unknown) (no (unknown) (unknown) Blood Type (units (unk nown) date) unknown) (unknown) (no (unknown) (unknown) Calcium (8.4-10.2) (units (unknown) date) mg/dL unknown) (unknown) (no (unknown) (unknown) Calcium 8.3 L (units ( unknown) date) (8.4-10.2) mg/dL unknown) (unknown) (no (unknown) (unknown) Carbon Dioxide (units (unknown) date) (22-32) mmol/L unknown) (unknown) (no (unknown) (unknown) Carbon Dioxide 22 (units (unknown) date) (22-32) mmol/L unknown) (unknown) (no (unknown) (unknown) Cardio (units (unkno wn) date) unknown) (unknown) (no (unknown) (unknown) Cardiovascular (units (unknown) date) unknown) (unknown) (no (unknown) (unknown) Cardiovascular: (units (unknown) date) Denies chest pain, unknown) Denies irregular heart rhythm, Denies (unknown) (no (unknown) (unknown) Chief complaint: (units (unknown) date) Vaginal Bleeding unknown) (unknown) (no (unknown) (unknown) Chloride (98-107) (units (unknown) date) mmol/L unknown) (unknown) (no (unknown) (unknown) Chloride 104 (units (u nknown) date) (98-107) mmol/L unknown) (unknown) (no (unknown) (unknown) Clinical (units (unkno wn) date) Impression: unknown) (unknown) (no (unknown) (unknown) Complete Blood (units (unknown) date) Count AUTO DIFF unknown) Stat (unknown) (no (unknown) (unknown) Comprehensive (units ( unknown) date) Metabolic Panel unknown) Stat (unknown) (no (unknown) (unknown) Const (units (unkno wn) date) unknown) (unknown) (no (unknown) (unknown) Constitutional (units (unknown) date) unknown) (unknown) (no (unknown) (unknown) Constitutional: (units (unknown) date) Denies chills, unknown) Denies fatigue, Denies fever(s), Denies frequent (unknown) (no (unknown) (unknown) Consulted (units ( unknown) date) Maldonado from OBGYN unknown) regarding the indication for RhoGAM since (unknown) (no (unknown) (unknown) Course (units (unkno wn) date) unknown) (unknown) (no (unknown) (unknown) Creatinine (units (unk nown) date) (0.52-1.04) mg/dL unknown) (unknown) (no (unknown) (unknown) Creatinine 0.49 L (units (unknown) date) (0.52-1.04) mg/dL unknown) (unknown) (no (unknown) (unknown) : 1980 (units (unknown) date) Acct:[id number] unknown) (unknown) (no (unknown) (unknown) Date of Service: (units (unknown) date) 11/25/22 unknown) (unknown) (no (unknown) (unknown) Denies frequent (units (unknown) date) falls, Denies loss unknown) of vision, Denies numbness, Denies tingling (unknown) (no (unknown) (unknown) Denies loss of (units (unknown) date) vision unknown) (unknown) (no (unknown) (unknown) Denies numbness (units (unknown) date) and Denies tingling unknown) (unknown) (no (unknown) (unknown) Departure (units (unkn own) date) unknown) (unknown) (no (unknown) (unknown) Discharge Plan (units (unknown) date) unknown) (unknown) (no (unknown) (unknown) Discontinued (units (u nknown) date) Medications unknown) (unknown) (no (unknown) (unknown) Documented By: RB (units (unknown) date) unknown) (unknown) (no (unknown) (unknown) Dr. Meyer for (units (unknown) date) tomorrow. Please unknown) keep that appointment as scheduled. Return to (unknown) (no (unknown) (unknown) ED Orders (units (unkn own) date) unknown) (unknown) (no (unknown) (unknown) ENT (units (unkno wn) date) unknown) (unknown) (no (unknown) (unknown) ER Physician: (units ( unknown) date) Brandan,Hyma P.A-C unknown) (unknown) (no (unknown) (unknown) Ears, Nose, Mouth, (units (unknown) date) and Throat: Denies unknown) change in voice, Denies dizziness, Denies (unknown) (no (unknown) (unknown) Ears:?hearing (units ( unknown) date) grossly normal unknown) bilaterally (unknown) (no (unknown) (unknown) Effort + (units (unkno wn) date) Inspection:?normal unknown) respiratory effort (unknown) (no (unknown) (unknown) Emergency Report (units (unknown) date) unknown) (unknown) (no (unknown) (unknown) Endocrine (units (unkn own) date) unknown) (unknown) (no (unknown) (unknown) Endocrine: Denies (units (unknown) date) fatigue, Denies unknown) flushing and Denies palpitations (unknown) (no (unknown) (unknown) Eos # (Auto) (units (u nknown) date) (0-450) /uL unknown) (unknown) (no (unknown) (unknown) Eos # (Auto) 0 (units (unknown) date) (0-450) /uL unknown) (unknown) (no (unknown) (unknown) Eos % (Auto) (2-4) (units (unknown) date) % unknown) (unknown) (no (unknown) (unknown) Eos % (Auto) 0.7 L (units (unknown) date) (2-4) % unknown) (unknown) (no (unknown) (unknown) Esterase (units (unkno wn) date) unknown) (unknown) (no (unknown) (unknown) Estimated GFR > 60 (units (unknown) date) (>60) mL/min unknown) (unknown) (no (unknown) (unknown) Estimated GFR (units ( unknown) date) (>60) mL/min unknown) (unknown) (no (unknown) (unknown) Exam Narrative: (units (unknown) date) unknown) (unknown) (no (unknown) (unknown) Exam (units (unkno wn) date) unknown) (unknown) (no (unknown) (unknown) Eyes (units (unkno wn) date) unknown) (unknown) (no (unknown) (unknown) Eyes: Denies (units (u nknown) date) change in vision, unknown) Denies eye discharge, Denies irritation and (unknown) (no (unknown) (unknown) Face and (units (unkno wn) date) sinus:?normal unknown) facial exam and sinuses nontender (unknown) (no (unknown) (unknown) Fibrinogen (units (unk nown) date) (211-428) mg/dL unknown) (unknown) (no (unknown) (unknown) Fibrinogen 398 (units (unknown) date) (211-428) mg/dL unknown) (unknown) (no (unknown) (unknown) Fibrinogen Stat (units (unknown) date) unknown) (unknown) (no (unknown) (unknown) Findings and plan (units (unknown) date) discussed with unknown) patient. She agrees to follow-up with (unknown) (no (unknown) (unknown) GI (units (unkno wn) date) unknown) (unknown) (no (unknown) (unknown) Gastrointestinal (units (unknown) date) unknown) (unknown) (no (unknown) (unknown) Gastrointestinal: (units (unknown) date) Denies abdominal unknown) pain, Denies change in bowel habits, Denies (unknown) (no (unknown) (unknown) General (units (unkno wn) date) unknown) (unknown) (no (unknown) (unknown) General:?appearanc (units (unknown) date) e normal, both eyes unknown) and all related structures (unknown) (no (unknown) (unknown) General:?cooperati (units (unknown) date) ve, healthy unknown) appearing and comfortable (unknown) (no (unknown) (unknown) General:?patient (units (unknown) date) alert, patient unknown) awake and patient oriented x3 (unknown) (no (unknown) (unknown) Genitourinary (units ( unknown) date) unknown) (unknown) (no (unknown) (unknown) Genitourinary: (units (unknown) date) Reports abnormal unknown) vaginal bleeding, Denies hematuria, Reports (unknown) (no (unknown) (unknown) Globulin (1.7-4.1) (units (unknown) date) g/dL unknown) (unknown) (no (unknown) (unknown) Globulin 3.2 (units (u nknown) date) (1.7-4.1) g/dL unknown) (unknown) (no (unknown) (unknown) Glucose (70-100) (units (unknown) date) mg/dL unknown) (unknown) (no (unknown) (unknown) Glucose 84 (units (unk nown) date) (70-100) mg/dL unknown) (unknown) (no (unknown) (unknown) HCG Quantitative (units (unknown) date) /Beta subunit Stat unknown) (unknown) (no (unknown) (unknown) HCG, Quant 14952 (units (unknown) date) mIU/mL unknown) (unknown) (no (unknown) (unknown) HCG, Quant mIU/mL (units (unknown) date) unknown) (unknown) (no (unknown) (unknown) HENMT (units (unkno wn) date) unknown) (unknown) (no (unknown) (unknown) HPI - (units (unknown) date) unknown) (unknown) (no (unknown) (unknown) HPI Narrative: (units (unknown) date) unknown) (unknown) (no (unknown) (unknown) Hct (36-46) % (units ( unknown) date) unknown) (unknown) (no (unknown) (unknown) Hct 31.5 L (36-46) (units (unknown) date) % unknown) (unknown) (no (unknown) (unknown) Head:?normal to (units (unknown) date) inspection unknown) (unknown) (no (unknown) (unknown) Hematologic/Lympha (units (unknown) date) tic unknown) (unknown) (no (unknown) (unknown) Hematologic/Lympha (units (unknown) date) tic: Denies easy unknown) bruising (unknown) (no (unknown) (unknown) Hgb (12.0-16.0) (units (unknown) date) g/dL unknown) (unknown) (no (unknown) (unknown) Hgb 10.6 L (units (unk nown) date) (12.0-16.0) g/dL unknown) (unknown) (no (unknown) (unknown) History of Present (units (unknown) date) Illness unknown) (unknown) (no (unknown) (unknown) Home Medications (units (unknown) date) unknown) (unknown) (no (unknown) (unknown) INR (0.9-1.3) (units ( unknown) date) unknown) (unknown) (no (unknown) (unknown) INR 0.9 (0.9-1.3) (units (unknown) date) unknown) (unknown) (no (unknown) (unknown) Initial Vital (units ( unknown) date) Signs unknown) (unknown) (no (unknown) (unknown) Initial Vital (units ( unknown) date) Signs: unknown) (unknown) (no (unknown) (unknown) Integumentary/[place] (units (unknown) date) sts unknown) (unknown) (no (unknown) (unknown) [facility] (units (unknown) date) [address] unknown) [place] [address] (unknown) (no (unknown) (unknown) Lab Data (units (unkno wn) date) unknown) (unknown) (no (unknown) (unknown) Lab Results (units (un known) date) unknown) (unknown) (no (unknown) (unknown) Labs: (units (unkno wn) date) unknown) (unknown) (no (unknown) (unknown) Last Admin: (units (un known) date) 11/25/22 15:16 unknown) Dose: 1,500 unit (unknown) (no (unknown) (unknown) Lip/Tongue/Throat (units (unknown) date) unknown) (unknown) (no (unknown) (unknown) Lymph # (Auto) (units (unknown) date) (7868-4210) /uL unknown) (unknown) (no (unknown) (unknown) Lymph # (Auto) (units (unknown) date) 1400 ([id number]) unknown) /uL (unknown) (no (unknown) (unknown) Lymph % (Auto) (units (unknown) date) (25-40) % unknown) (unknown) (no (unknown) (unknown) Lymph % (Auto) (units (unknown) date) 25.2 (25-40) % unknown) (unknown) (no (unknown) (unknown) MCH (26-34) PG (units (unknown) date) unknown) (unknown) (no (unknown) (unknown) MCH 31.6 (26-34) (units (unknown) date) PG unknown) (unknown) (no (unknown) (unknown) MCHC (30-36) % (units (unknown) date) unknown) (unknown) (no (unknown) (unknown) MCHC 33.7 (30-36) (units (unknown) date) % unknown) (unknown) (no (unknown) (unknown) MCV (80-100) fL (units (unknown) date) unknown) (unknown) (no (unknown) (unknown) MCV 93.8 (80-100) (units (unknown) date) fL unknown) (unknown) (no (unknown) (unknown) MDM - OB/Uterine (units (unknown) date) Contractions unknown) (unknown) (no (unknown) (unknown) MDM Narrative (units ( unknown) date) unknown) (unknown) (no (unknown) (unknown) Maternal cervical (units (unknown) date) canal is 3.2 cm unknown) long. No abnormalities found on ultrasound. (unknown) (no (unknown) (unknown) Medical decision (units (unknown) date) making narrative: unknown) (unknown) (no (unknown) (unknown) Medical records (units (unknown) date) reviewed: Yes unknown) (unknown) (no (unknown) (unknown) Medication (units (unk nown) date) Instructions unknown) Recorded Confirmed (unknown) (no (unknown) (unknown) Medication (units (unk nown) date) Instructions unknown) Recorded (unknown) (no (unknown) (unknown) Miscellaneous,Doct (units (unknown) date) or, MD [Primary unknown) Care Provider] (unknown) (no (unknown) (unknown) Mode of arrival: (units (unknown) date) Ambulatory unknown) (unknown) (no (unknown) (unknown) [place] # (Auto) (units ( unknown) date) (0-900) /uL unknown) (unknown) (no (unknown) (unknown) [place] # (Auto) 300 (units (unknown) date) (0-900) /uL unknown) (unknown) (no (unknown) (unknown) [place] % (Auto) (units ( unknown) date) (3-14) % unknown) (unknown) (no (unknown) (unknown) [place] % (Auto) 5.8 (units (unknown) date) (3-14) % unknown) (unknown) (no (unknown) (unknown) Mouth:?oral (units (un known) date) mucosae normal unknown) (unknown) (no (unknown) (unknown) Musculoskeletal (units (unknown) date) unknown) (unknown) (no (unknown) (unknown) Musculoskeletal: (units (unknown) date) Denies back pain, unknown) Denies muscle weakness, Denies neck pain, (unknown) (no (unknown) (unknown) NOW ONE (units (unkno wn) date) unknown) (unknown) (no (unknown) (unknown) Narrative (units (unkn own) date) unknown) (unknown) (no (unknown) (unknown) Neck (units (unkno wn) date) unknown) (unknown) (no (unknown) (unknown) Neck:?normal (units (u nknown) date) visual inspection unknown) and no lymphadenopathy noted (unknown) (no (unknown) (unknown) Neuro (units (unkno wn) date) unknown) (unknown) (no (unknown) (unknown) Neurologic (units (unk nown) date) unknown) (unknown) (no (unknown) (unknown) Neurologic: Denies (units (unknown) date) behavioral changes, unknown) Denies confusion, Denies dizziness, (unknown) (no (unknown) (unknown) Neut # (Auto) (units ( unknown) date) (8381-2138) /uL unknown) (unknown) (no (unknown) (unknown) Neut # (Auto) 3900 (units (unknown) date) (3430-7276) /uL unknown) (unknown) (no (unknown) (unknown) Neut % (Auto) (units ( unknown) date) (50-75) % unknown) (unknown) (no (unknown) (unknown) Neut % (Auto) 68.0 (units (unknown) date) (50-75) % unknown) (unknown) (no (unknown) (unknown) New (units (unkno wn) date) unknown) (unknown) (no (unknown) (unknown) No Action (units (unkn own) date) unknown) (unknown) (no (unknown) (unknown) Nose:?external (units (unknown) date) nose normal unknown) (unknown) (no (unknown) (unknown) Ordered: (units (unkno wn) date) unknown) (unknown) (no (unknown) (unknown) Orders (units (unkno wn) date) unknown) (unknown) (no (unknown) (unknown) Oxygen Delivery (units (unknown) date) Method 11/25/22 unknown) 12:55 (unknown) (no (unknown) (unknown) Oxygen Delivery (units (unknown) date) Method Room Air unknown) Room Air (unknown) (no (unknown) (unknown) PT (10.1-12.7) (units (unknown) date) SECONDS unknown) (unknown) (no (unknown) (unknown) PT 10.7 (units (unkno wn) date) (10.1-12.7) SECONDS unknown) (unknown) (no (unknown) (unknown) PT [Prothrombin (units (unknown) date) Time INR] Stat unknown) (unknown) (no (unknown) (unknown) PTT [Partial (units (u nknown) date) Thromboplastin unknown) Time] Stat (unknown) (no (unknown) (unknown) Patient (units (unkno wn) date) Disposition: Home unknown) (unknown) (no (unknown) (unknown) Patient: (units (unkno wn) date) Yu Gilbert unknown) MR#: [id number] (unknown) (no (unknown) (unknown) Penicillins (units (un known) date) Allergy Severe unknown) Swelling Verified 10/30/22 15:44 (unknown) (no (unknown) (unknown) Plt Count (units (unkn own) date) (150-400) X103/uL unknown) (unknown) (no (unknown) (unknown) Plt Count 265 (units ( unknown) date) (150-400) X103/uL unknown) (unknown) (no (unknown) (unknown) Potassium (units (unkn own) date) (3.4-5.1) mmol/L unknown) (unknown) (no (unknown) (unknown) Potassium 3.9 (units ( unknown) date) (3.4-5.1) mmol/L unknown) (unknown) (no (unknown) (unknown) Prescriptions: (units (unknown) date) unknown) (unknown) (no (unknown) (unknown) Previous Rx's (units ( unknown) date) unknown) (unknown) (no (unknown) (unknown) Psychiatric (units (un known) date) unknown) (unknown) (no (unknown) (unknown) Psychiatric: Denies (units (unknown) date) anxiety, Denies unknown) behavioral changes, Denies confusion, Denies (unknown) (no (unknown) (unknown) Pulse Oximetry 97 (units (unknown) date) 11/25/22 12:55 unknown) (unknown) (no (unknown) (unknown) Pulse Oximetry 97 (units (unknown) date) 98 98 unknown) (unknown) (no (unknown) (unknown) Pulse Rate 81 (units ( unknown) date) 11/25/22 12:55 unknown) (unknown) (no (unknown) (unknown) Pulse Rate 81 79 (units (unknown) date) 79 unknown) (unknown) (no (unknown) (unknown) RBC (4.0-5.2) (units ( unknown) date) X106/uL unknown) (unknown) (no (unknown) (unknown) RBC 3.36 L (units (unk nown) date) (4.0-5.2) X106/uL unknown) (unknown) (no (unknown) (unknown) RDW (11.6-14.8) % (units (unknown) date) unknown) (unknown) (no (unknown) (unknown) RDW 13.8 (units (unkno wn) date) (11.6-14.8) % unknown) (unknown) (no (unknown) (unknown) ROS Unobtainable: (units (unknown) date) All systems unknown) reviewed + are unremarkable except as noted in HPI (unknown) (no (unknown) (unknown) Rate:?regular rate (units (unknown) date) unknown) (unknown) (no (unknown) (unknown) Referrals: (units (unk nown) date) unknown) (unknown) (no (unknown) (unknown) Related Data (units (u nknown) date) unknown) (unknown) (no (unknown) (unknown) Resp (units (unkno wn) date) unknown) (unknown) (no (unknown) (unknown) Respiratory Rate (units (unknown) date) 17 11/25/22 12:55 unknown) (unknown) (no (unknown) (unknown) Respiratory Rate (units (unknown) date) 17 18 unknown) (unknown) (no (unknown) (unknown) Respiratory (units (un known) date) unknown) (unknown) (no (unknown) (unknown) Respiratory: Denies (units (unknown) date) cough, Denies unknown) dyspnea, Denies dyspnea on exertion and Denies (unknown) (no (unknown) (unknown) Review of Systems (units (unknown) date) unknown) (unknown) (no (unknown) (unknown) Rho Immune (units (unk nown) date) Globulin (Rho(D) unknown) Immune Globulin 1,500 Unit Syringe) 1,500 unit IM (unknown) (no (unknown) (unknown) Rhythm:?regular (units (unknown) date) rhythm unknown) (unknown) (no (unknown) (unknown) Rx Instructions: (units (unknown) date) unknown) (unknown) (no (unknown) (unknown) Signed By: (units (unk nown) date) unknown) (unknown) (no (unknown) (unknown) Skin/Breast: (units (u nknown) date) Denies pruritus, unknown) Denies erythema, Denies rash and Denies wounds (unknown) (no (unknown) (unknown) Sodium (137-145) (units (unknown) date) mmol/L unknown) (unknown) (no (unknown) (unknown) Sodium 135 L (units (u nknown) date) (137-145) mmol/L unknown) (unknown) (no (unknown) (unknown) Source: patient (units (unknown) date) unknown) (unknown) (no (unknown) (unknown) Stand Alone Forms: (units (unknown) date) Patient Portal/API unknown) (unknown) (no (unknown) (unknown) Stated complaint: (units (unknown) date) 14 weeks unknown) preg/bleeding (unknown) (no (unknown) (unknown) Stop: 11/25/22 (units (unknown) date) 14:56 unknown) (unknown) (no (unknown) (unknown) Temperature 98 F (units (unknown) date) 11/25/22 12:55 unknown) (unknown) (no (unknown) (unknown) Temperature 98 F (units (unknown) date) unknown) (unknown) (no (unknown) (unknown) Throat:?posterior (units (unknown) date) oropharynx normal unknown) (unknown) (no (unknown) (unknown) Time Seen by (units (u nknown) date) Provider: 11/25/22 unknown) 12:46 (unknown) (no (unknown) (unknown) Total Bilirubin < (units (unknown) date) 0.1 L (0.2-1.3) unknown) mg/dL (unknown) (no (unknown) (unknown) Total Bilirubin (units (unknown) date) (0.2-1.3) mg/dL unknown) (unknown) (no (unknown) (unknown) Total Protein (units ( unknown) date) (6.3-8.2) g/dL unknown) (unknown) (no (unknown) (unknown) Total Protein 6.5 (units (unknown) date) (6.3-8.2) g/dL unknown) (unknown) (no (unknown) (unknown) UA is positive for (units (unknown) date) UTI. Labs within unknown) normal limits. Ultrasound shows a single (unknown) (no (unknown) (unknown) US OB limited Stat (units (unknown) date) unknown) (unknown) (no (unknown) (unknown) Ur Squamous Epith (units (unknown) date) Cells (0-5/HPF) unknown) (unknown) (no (unknown) (unknown) Ur Squamous Epith (units (unknown) date) Cells 5-10 /hpf H unknown) (0-5/HPF) (unknown) (no (unknown) (unknown) Urine Bacteria (units (unknown) date) (None) unknown) (unknown) (no (unknown) (unknown) Urine Bacteria (units (unknown) date) Many (>30) H (None) unknown) (unknown) (no (unknown) (unknown) Urine Culture Stat (units (unknown) date) unknown) (unknown) (no (unknown) (unknown) Urine Dip (units (unkn own) date) unknown) (unknown) (no (unknown) (unknown) Urine Microscopic (units (unknown) date) Stat unknown) (unknown) (no (unknown) (unknown) Urine Mucus (units (un known) date) (Negative) unknown) (unknown) (no (unknown) (unknown) Urine Mucus 1+ H (units (unknown) date) (Negative) unknown) (unknown) (no (unknown) (unknown) Urine RBC (units (unkn own) date) (0-5/HPF) unknown) (unknown) (no (unknown) (unknown) Urine RBC 5-10/hpf (units (unknown) date) H (0-5/HPF) unknown) (unknown) (no (unknown) (unknown) Urine Specific (units (unknown) date) [place] 1.020 unknown) (unknown) (no (unknown) (unknown) Urine WBC (units (unkn own) date) (0-5/HPF) unknown) (unknown) (no (unknown) (unknown) Urine WBC 5-10/hpf (units (unknown) date) H (0-5/HPF) unknown) (unknown) (no (unknown) (unknown) Vaginal bleeding, (units (unknown) date) UTI (urinary tract unknown) infection), Bacterial vaginosis (unknown) (no (unknown) (unknown) Vital Signs - 8 hr (units (unknown) date) unknown) (unknown) (no (unknown) (unknown) Vital Signs (units (un known) date) unknown) (unknown) (no (unknown) (unknown) Vital signs: (units (u nknown) date) unknown) (unknown) (no (unknown) (unknown) WBC (4.5-11.0) (units (unknown) date) X103/uL unknown) (unknown) (no (unknown) (unknown) WBC 5.7 (4.5-11.0) (units (unknown) date) X103/uL unknown) (unknown) (no (unknown) (unknown) Wet Prep Tric BV (units (unknown) date) [place] Stat unknown) (unknown) (no (unknown) (unknown) Wet prep was (units (u nknown) date) positive for clue unknown) cells, will treat for bacterial vaginosis in (unknown) (no (unknown) (unknown) Mitch as (units (unkn own) date) scheduled tomorrow. unknown) ED return precautions were discussed with (unknown) (no (unknown) (unknown) You were evaluated (units (unknown) date) in the ED today for unknown) vaginal bleeding during . Your (unknown) (no (unknown) (unknown) [Embedded Image (units (unknown) date) Not Available] unknown) (unknown) (no (unknown) (unknown) addition to the (units (unknown) date) UTI. unknown) (unknown) (no (unknown) (unknown) and Denies (units (unk nown) date) orthopnea unknown) (unknown) (no (unknown) (unknown) and Denies (units (unk nown) date) weakness unknown) (unknown) (no (unknown) (unknown) and below (units (unkn own) date) unknown) (unknown) (no (unknown) (unknown) and has a (units (unkn own) date) appointment for unknown) tomorrow. Patient had a normal ultrasound 3 days ago (unknown) (no (unknown) (unknown) beats per minute. (units (unknown) date) Your urine was unknown) positive for a UTI. You also tested positive (unknown) (no (unknown) (unknown) capsule (Macrobid) (units (unknown) date) unknown) (unknown) (no (unknown) (unknown) caregiver, is on (units (unknown) date) light duty, however unknown) was trying to help lift patient's earlier (unknown) (no (unknown) (unknown) chest pain, (units (un known) date) shortness of unknown) breath, nausea, vomiting, flank pain, dysuria, (unknown) (no (unknown) (unknown) depression, Denies (units (unknown) date) homicidal ideation unknown) and Denies suicidal ideation (unknown) (no (unknown) (unknown) diarrhea, Denies (units (unknown) date) nausea and Denies unknown) vomiting (unknown) (no (unknown) (unknown) discharge since (units (unknown) date) yesterday, is not unknown) like cottage cheese, more runny and odorless. (unknown) (no (unknown) (unknown) endorses a feeling (units (unknown) date) of pelvic and unknown) suprapubic heaviness. Patient states she is a (unknown) (no (unknown) (unknown) falls, Denies (units ( unknown) date) lethargy and Denies unknown) weakness (unknown) (no (unknown) (unknown) for bacterial (units ( unknown) date) vaginosis. You are unknown) being prescribed 2 antibiotics for these (unknown) (no (unknown) (unknown) in the ED, with (units (unknown) date) follow-up with Dr. singh) Mitch tomorrow. (unknown) (no (unknown) (unknown) infections. Please (units (unknown) date) take them as unknown) prescribed. Given that you are blood type A (unknown) (no (unknown) (unknown) lightheadedness, (units (unknown) date) Denies unknown) palpitations, Denies dyspnea, Denies dyspnea on exertion (unknown) (no (unknown) (unknown) lightheadedness, (units (unknown) date) dizziness, syncope. unknown) Patient denies pelvic cramping, but (unknown) (no (unknown) (unknown) living (units (unkno wn) date) intrauterine unknown) gestation that is estimated at 16 weeks. heart rate (unknown) (no (unknown) (unknown) metronidazole 500 (units (unknown) date) mg tablet 500 mg PO unknown) Q12H 7 days #14 tabs 11/25/22 (unknown) (no (unknown) (unknown) metronidazole 500 (units (unknown) date) mg tablet unknown) (unknown) (no (unknown) (unknown) monohydrate/macroc (units (unknown) date) rystals 100 mg unknown) (unknown) (no (unknown) (unknown) must administer (units (unknown) date) with a meal/food unknown) (unknown) (no (unknown) (unknown) neck pain, Denies (units (unknown) date) sore throat and unknown) Denies throat swelling (unknown) (no (unknown) (unknown) negative, you were (units (unknown) date) also given a RhoGAM unknown) shot. You also have a appointment with (unknown) (no (unknown) (unknown) nitrofurantoin 100 (units (unknown) date) mg PO Q12H 7 days unknown) #14 caps 11/25/22 (unknown) (no (unknown) (unknown) nitrofurantoin (units (unknown) date) monohyd/m-cryst unknown) [Macrobid] 100 mg capsule (unknown) (no (unknown) (unknown) of (units (unkno wn) date) unknown) (unknown) (no (unknown) (unknown) other. Will obtain (units (unknown) date) labs, UA, obstetric unknown) ultrasound, wet prep. (unknown) (no (unknown) (unknown) palpation. There (units (unknown) date) is no CVA unknown) tenderness. (unknown) (no (unknown) (unknown) patient is A (units (u nknown) date) negative. unknown) Maldonado recommended 300 mcg dose of RhoGAM IM today (unknown) (no (unknown) (unknown) patient. Patient (units (unknown) date) verbalized unknown) understanding. (unknown) (no (unknown) (unknown) pelvic pain, (units (u nknown) date) Denies flank pain, unknown) Denies urinary incontinence, Denies urinary (unknown) (no (unknown) (unknown) placental abruption (units (unknown) date) versus threatened unknown) miscarriage versus vaginal bleeding during (unknown) (no (unknown) (unknown) placental (units (unkn own) date) abruption with her unknown) prior pregnancies. Patient sees OBGYN Dr. Meyer, (unknown) (no (unknown) (unknown) versus (units (unknown) date) UTI versus unknown) bacterial vaginosis versus yeast infection versus (unknown) (no (unknown) (unknown) prenat.vits,karina,mi (units (unknown) date) [id number]-sqhco 1 tab unknown) PO DAILY 09/19/22 11/25/22 (unknown) (no (unknown) (unknown) prenat.vits,karina,mi (units (unknown) date) q-ropt-cxlzy Tablet unknown) (unknown) (no (unknown) (unknown) shellfish derived (units (unknown) date) AdvReac Mild unknown) Diarrhea Verified 10/30/22 15:44 (unknown) (no (unknown) (unknown) that showed a (units ( unknown) date) heart tone of unknown) 145. Patient states she is had some vaginal (unknown) (no (unknown) (unknown) the ED if you have (units (unknown) date) significantly unknown) increased bleeding, you have trouble breathing, (unknown) (no (unknown) (unknown) today after which (units (unknown) date) her vaginal unknown) bleeding started. Patient has a history of (unknown) (no (unknown) (unknown) ultrasound shows a (units (unknown) date) 16-week-old live unknown) with a heart rate of 147 (unknown) (no (unknown) (unknown) urgency and (units (un known) date) Reports vaginal unknown) discharge (unknown) (no (unknown) (unknown) vaginal bleeding, (units (unknown) date) lower abdominal unknown) pressure. Concern for placenta previa versus (unknown) (no (unknown) (unknown) vaginal bleeding, (units (unknown) date) lower abdominal unknown) pressure. Patient denies fevers, chills, (unknown) (no (unknown) (unknown) wheezing (units (unkno wn) date) unknown) (unknown) (no (unknown) (unknown) you experience (units (unknown) date) chest pain, unknown) worsening abdominal pain. Result panel 555 (unknown) (no (unknown) (unknown) (no value) (units (unk nown) date) unknown) (unknown) (no (unknown) (unknown) <Electronically (units (unknown) date) signed by He unknown) NaidaA-C Brandan> (unknown) (no (unknown) (unknown) <Electronically (units (unknown) date) signed by Iain unknown) Harman Hutchinson.O.> (unknown) (no (unknown) (unknown) <Electronically (units (unknown) date) signed by Iain unknown) Jez Hammer> (unknown) (no (unknown) (unknown) <eH Gipson PA-C (units (unknown) date) - Last Filed: unknown) 11/25/22 20:32> (unknown) (no (unknown) (unknown) <Iain Hammer DO (units (unknown) date) - Last Filed: unknown) 11/26/22 07:04> (unknown) (no (unknown) (unknown) <cosigner> (units (unk nown) date) unknown) (unknown) (no (unknown) (unknown) 11/25/22 11/25/22 (units (unknown) date) 11/25/22 unknown) Range/Units (unknown) (no (unknown) (unknown) 11/25/22 11/25/22 (units (unknown) date) Range/Units unknown) (unknown) (no (unknown) (unknown) 11/25/22 13:30 (units (unknown) date) unknown) (unknown) (no (unknown) (unknown) 11/25/22 2032 (units ( unknown) date) unknown) (unknown) (no (unknown) (unknown) 11/25/22 (units (unkno wn) date) unknown) (unknown) (no (unknown) (unknown) 11/26/22 0704 (units ( unknown) date) unknown) (unknown) (no (unknown) (unknown) [id number] (units (unkno wn) date) unknown) (unknown) (no (unknown) (unknown) 1 tab PO DAILY (units (unknown) date) unknown) (unknown) (no (unknown) (unknown) 100 mg PO Q12H 7 (units (unknown) date) Days Qty: 14 0RF unknown) (unknown) (no (unknown) (unknown) 12:55 11/25/22 (units (unknown) date) unknown) (unknown) (no (unknown) (unknown) 13:00 13:30 13:30 (units (unknown) date) unknown) (unknown) (no (unknown) (unknown) 13:30 13:30 (units (un known) date) unknown) (unknown) (no (unknown) (unknown) 147 beats per (units ( unknown) date) minute. Placental unknown) position is posterior without a previa. (unknown) (no (unknown) (unknown) 14:27 11/25/22 (units (unknown) date) unknown) (unknown) (no (unknown) (unknown) 16:11 (units (unkno wn) date) unknown) (unknown) (no (unknown) (unknown) 41-year-old female (units (unknown) date) who is 16 weeks unknown) presents to the ED with 1 day of (unknown) (no (unknown) (unknown) 500 mg PO Q12H 7 (units (unknown) date) Days Qty: 14 0RF unknown) (unknown) (no (unknown) (unknown) ALT (<35) IU/L (units (unknown) date) unknown) (unknown) (no (unknown) (unknown) ALT 19 (<35) IU/L (units (unknown) date) unknown) (unknown) (no (unknown) (unknown) APTT (26-36) (units (u nknown) date) SECONDS unknown) (unknown) (no (unknown) (unknown) APTT 28 (26-36) (units (unknown) date) SECONDS unknown) (unknown) (no (unknown) (unknown) AST (14-36) IU/L (units (unknown) date) unknown) (unknown) (no (unknown) (unknown) AST 22 (14-36) (units (unknown) date) IU/L unknown) (unknown) (no (unknown) (unknown) Abdomen is soft, (units (unknown) date) distended unknown) appropriately for 6 weeks' gestation, nontender to (unknown) (no (unknown) (unknown) Activity (units (unkno wn) date) Restrictions/Additi unknown) onal Instructions: (unknown) (no (unknown) (unknown) Age/Sex: 41 / F (units (unknown) date) unknown) (unknown) (no (unknown) (unknown) Albumin (3.5-5.0) (units (unknown) date) g/dL unknown) (unknown) (no (unknown) (unknown) Albumin 3.3 L (units ( unknown) date) (3.5-5.0) g/dL unknown) (unknown) (no (unknown) (unknown) Albumin/Globulin (units (unknown) date) Ratio (1.0-2.8) unknown) (unknown) (no (unknown) (unknown) Albumin/Globulin (units (unknown) date) Ratio 1.0 (1.0-2.8) unknown) (unknown) (no (unknown) (unknown) Alkaline (units (unkno wn) date) Phosphatase unknown) (38-126) U/L (unknown) (no (unknown) (unknown) Alkaline (units (unkno wn) date) Phosphatase 44 unknown) (38-126) U/L (unknown) (no (unknown) (unknown) Allergic/Immunolog (units (unknown) date) ic unknown) (unknown) (no (unknown) (unknown) Allergic/Immunolog (units (unknown) date) ic: Denies unknown) urticaria, Denies throat swelling and Denies (unknown) (no (unknown) (unknown) Allergies (units (unkn own) date) unknown) (unknown) (no (unknown) (unknown) Allergy/AdvReac (units (unknown) date) Type Severity unknown) Reaction Status Date / Time (unknown) (no (unknown) (unknown) Amorphous Sediment (units (unknown) date) 1 unknown) (unknown) (no (unknown) (unknown) Amorphous Sediment (units (unknown) date) unknown) (unknown) (no (unknown) (unknown) Auscultation:?kei (units (unknown) date) r to auscultation unknown) bilaterally (unknown) (no (unknown) (unknown) BUN (7-17) mg/dL (units (unknown) date) unknown) (unknown) (no (unknown) (unknown) BUN 15 (7-17) (units ( unknown) date) mg/dL unknown) (unknown) (no (unknown) (unknown) BUN/Creatinine (units (unknown) date) Ratio (6-22) unknown) (unknown) (no (unknown) (unknown) BUN/Creatinine (units (unknown) date) Ratio 30.6 H (6-22) unknown) (unknown) (no (unknown) (unknown) Baso # (Auto) (units ( unknown) date) (0-100) /uL unknown) (unknown) (no (unknown) (unknown) Baso # (Auto) 0 (units (unknown) date) (0-100) /uL unknown) (unknown) (no (unknown) (unknown) Baso % (Auto) (units ( unknown) date) (0-2) % unknown) (unknown) (no (unknown) (unknown) Baso % (Auto) 0.3 (units (unknown) date) (0-2) % unknown) (unknown) (no (unknown) (unknown) Bedside Urine (units ( unknown) date) Bilirubin - unknown) Negative (unknown) (no (unknown) (unknown) Bedside Urine (units ( unknown) date) Glucose Negative unknown) (unknown) (no (unknown) (unknown) Bedside Urine (units ( unknown) date) Ketone - Negative unknown) (unknown) (no (unknown) (unknown) Bedside Urine (units ( unknown) date) Leukocytes +/- 15 unknown) (unknown) (no (unknown) (unknown) Bedside Urine (units ( unknown) date) Nitrite - Negative unknown) (unknown) (no (unknown) (unknown) Bedside Urine (units ( unknown) date) Occult Blood unknown) (unknown) (no (unknown) (unknown) Bedside Urine (units ( unknown) date) Protein +/- 15 unknown) (unknown) (no (unknown) (unknown) Bedside Urine (units ( unknown) date) Urobilinogen - unknown) Negative (unknown) (no (unknown) (unknown) Bedside Urine pH 6 (units (unknown) date) unknown) (unknown) (no (unknown) (unknown) Blood Pressure (units (unknown) date) 101/50 L 11/25/22 unknown) 12:55 (unknown) (no (unknown) (unknown) Blood Pressure (units (unknown) date) 101/50 L 98/53 L unknown) 99/55 L (unknown) (no (unknown) (unknown) Blood Type A (units (u nknown) date) Negative unknown) (unknown) (no (unknown) (unknown) Blood Type (units (unk nown) date) unknown) (unknown) (no (unknown) (unknown) Calcium (8.4-10.2) (units (unknown) date) mg/dL unknown) (unknown) (no (unknown) (unknown) Calcium 8.3 L (units ( unknown) date) (8.4-10.2) mg/dL unknown) (unknown) (no (unknown) (unknown) Carbon Dioxide (units (unknown) date) (22-32) mmol/L unknown) (unknown) (no (unknown) (unknown) Carbon Dioxide 22 (units (unknown) date) (22-32) mmol/L unknown) (unknown) (no (unknown) (unknown) Cardio (units (o wn) date) unknown) (unknown) (no (unknown) (unknown) Cardiovascular (units (unknown) date) unknown) (unknown) (no (unknown) (unknown) Cardiovascular: (units (unknown) date) Denies chest pain, unknown) Denies irregular heart rhythm, Denies (unknown) (no (unknown) (unknown) Chief complaint: (units (unknown) date) Vaginal Bleeding unknown) (unknown) (no (unknown) (unknown) Chloride (98-107) (units (unknown) date) mmol/L unknown) (unknown) (no (unknown) (unknown) Chloride 104 (units (u nknown) date) (98-107) mmol/L unknown) (unknown) (no (unknown) (unknown) Clinical (units (o wn) date) Impression: unknown) (unknown) (no (unknown) (unknown) Const (units (o wn) date) unknown) (unknown) (no (unknown) (unknown) Constitutional (units (unknown) date) unknown) (unknown) (no (unknown) (unknown) Constitutional: (units (unknown) date) Denies chills, unknown) Denies fatigue, Denies fever(s), Denies frequent (unknown) (no (unknown) (unknown) Consulted (units ( unknown) date) Maldonado from OBGYN unknown) regarding the indication for RhoGAM since (unknown) (no (unknown) (unknown) Cosign (units (unkno wn) date) unknown) (unknown) (no (unknown) (unknown) Course (units (unkno wn) date) unknown) (unknown) (no (unknown) (unknown) Creatinine (units (unk nown) date) (0.52-1.04) mg/dL unknown) (unknown) (no (unknown) (unknown) Creatinine 0.49 L (units (unknown) date) (0.52-1.04) mg/dL unknown) (unknown) (no (unknown) (unknown) DI for Vaginal (units (unknown) date) Bleeding During unknown) (unknown) (no (unknown) (unknown) : 1980 (units (unknown) date) Acct:[id number] unknown) (unknown) (no (unknown) (unknown) Date of Service: (units (unknown) date) 11/25/22 unknown) (unknown) (no (unknown) (unknown) Denies frequent (units (unknown) date) falls, Denies loss unknown) of vision, Denies numbness, Denies tingling (unknown) (no (unknown) (unknown) Denies loss of (units (unknown) date) vision unknown) (unknown) (no (unknown) (unknown) Denies numbness (units (unknown) date) and Denies tingling unknown) (unknown) (no (unknown) (unknown) Departure (units (unkn own) date) unknown) (unknown) (no (unknown) (unknown) Discharge Plan (units (unknown) date) unknown) (unknown) (no (unknown) (unknown) Discontinued (units (u nknown) date) Medications unknown) (unknown) (no (unknown) (unknown) Documented By: RB (units (unknown) date) unknown) (unknown) (no (unknown) (unknown) Dr. Meyer for (units (unknown) date) tomorrow. Please unknown) keep that appointment as scheduled. Return to (unknown) (no (unknown) (unknown) ED Attending (units (u nknown) date) Cosignature unknown) Attestation: (unknown) (no (unknown) (unknown) ENT (units (unkno wn) date) unknown) (unknown) (no (unknown) (unknown) ER Physician: (units ( unknown) date) Brandan,Hyma P.A-C unknown) (unknown) (no (unknown) (unknown) Ears, Nose, Mouth, (units (unknown) date) and Throat: Denies unknown) change in voice, Denies dizziness, Denies (unknown) (no (unknown) (unknown) Ears:?hearing (units ( unknown) date) grossly normal unknown) bilaterally (unknown) (no (unknown) (unknown) Effort + (units (unkno wn) date) Inspection:?normal unknown) respiratory effort (unknown) (no (unknown) (unknown) Emergency Report (units (unknown) date) unknown) (unknown) (no (unknown) (unknown) Endocrine (units (unkn own) date) unknown) (unknown) (no (unknown) (unknown) Endocrine: Denies (units (unknown) date) fatigue, Denies unknown) flushing and Denies palpitations (unknown) (no (unknown) (unknown) Eos # (Auto) (units (u nknown) date) (0-450) /uL unknown) (unknown) (no (unknown) (unknown) Eos # (Auto) 0 (units (unknown) date) (0-450) /uL unknown) (unknown) (no (unknown) (unknown) Eos % (Auto) (2-4) (units (unknown) date) % unknown) (unknown) (no (unknown) (unknown) Eos % (Auto) 0.7 L (units (unknown) date) (2-4) % unknown) (unknown) (no (unknown) (unknown) Esterase (units (unkno wn) date) unknown) (unknown) (no (unknown) (unknown) Estimated GFR > 60 (units (unknown) date) (>60) mL/min unknown) (unknown) (no (unknown) (unknown) Estimated GFR (units ( unknown) date) (>60) mL/min unknown) (unknown) (no (unknown) (unknown) Exam Narrative: (units (unknown) date) unknown) (unknown) (no (unknown) (unknown) Exam (units (unkno wn) date) unknown) (unknown) (no (unknown) (unknown) Eyes (units (unkno wn) date) unknown) (unknown) (no (unknown) (unknown) Eyes: Denies (units (u nknown) date) change in vision, unknown) Denies eye discharge, Denies irritation and (unknown) (no (unknown) (unknown) Face and (units (unkno wn) date) sinus:?normal unknown) facial exam and sinuses nontender (unknown) (no (unknown) (unknown) Fibrinogen (units (unk nown) date) (211-428) mg/dL unknown) (unknown) (no (unknown) (unknown) Fibrinogen 398 (units (unknown) date) (211-428) mg/dL unknown) (unknown) (no (unknown) (unknown) Findings and plan (units (unknown) date) discussed with unknown) patient. She agrees to follow-up with (unknown) (no (unknown) (unknown) GI (units (unkno wn) date) unknown) (unknown) (no (unknown) (unknown) Gastrointestinal (units (unknown) date) unknown) (unknown) (no (unknown) (unknown) Gastrointestinal: (units (unknown) date) Denies abdominal unknown) pain, Denies change in bowel habits, Denies (unknown) (no (unknown) (unknown) General (units (unkno wn) date) unknown) (unknown) (no (unknown) (unknown) General:?appearanc (units (unknown) date) e normal, both eyes unknown) and all related structures (unknown) (no (unknown) (unknown) General:?cooperati (units (unknown) date) ve, healthy unknown) appearing and comfortable (unknown) (no (unknown) (unknown) General:?patient (units (unknown) date) alert, patient unknown) awake and patient oriented x3 (unknown) (no (unknown) (unknown) Genitourinary (units ( unknown) date) unknown) (unknown) (no (unknown) (unknown) Genitourinary: (units (unknown) date) Reports abnormal unknown) vaginal bleeding, Denies hematuria, Reports (unknown) (no (unknown) (unknown) Globulin (1.7-4.1) (units (unknown) date) g/dL unknown) (unknown) (no (unknown) (unknown) Globulin 3.2 (units (u nknown) date) (1.7-4.1) g/dL unknown) (unknown) (no (unknown) (unknown) Glucose (70-100) (units (unknown) date) mg/dL unknown) (unknown) (no (unknown) (unknown) Glucose 84 (units (unk nown) date) (70-100) mg/dL unknown) (unknown) (no (unknown) (unknown) HCG, Quant 88252 (units (unknown) date) mIU/mL unknown) (unknown) (no (unknown) (unknown) HCG, Quant mIU/mL (units (unknown) date) unknown) (unknown) (no (unknown) (unknown) HENMT (units (unkno wn) date) unknown) (unknown) (no (unknown) (unknown) HPI - (units (unknown) date) unknown) (unknown) (no (unknown) (unknown) HPI Narrative: (units (unknown) date) unknown) (unknown) (no (unknown) (unknown) Hct (36-46) % (units ( unknown) date) unknown) (unknown) (no (unknown) (unknown) Hct 31.5 L (36-46) (units (unknown) date) % unknown) (unknown) (no (unknown) (unknown) Head:?normal to (units (unknown) date) inspection unknown) (unknown) (no (unknown) (unknown) Hematologic/Lympha (units (unknown) date) tic unknown) (unknown) (no (unknown) (unknown) Hematologic/Lympha (units (unknown) date) tic: Denies easy unknown) bruising (unknown) (no (unknown) (unknown) Hgb (12.0-16.0) (units (unknown) date) g/dL unknown) (unknown) (no (unknown) (unknown) Hgb 10.6 L (units (unk nown) date) (12.0-16.0) g/dL unknown) (unknown) (no (unknown) (unknown) History of Present (units (unknown) date) Illness unknown) (unknown) (no (unknown) (unknown) Home Medications (units (unknown) date) unknown) (unknown) (no (unknown) (unknown) I was immediately (units (unknown) date) available in the unknown) department for consultation. This (unknown) (no (unknown) (unknown) INR (0.9-1.3) (units ( unknown) date) unknown) (unknown) (no (unknown) (unknown) INR 0.9 (0.9-1.3) (units (unknown) date) unknown) (unknown) (no (unknown) (unknown) Initial Vital (units ( unknown) date) Signs unknown) (unknown) (no (unknown) (unknown) Initial Vital (units ( unknown) date) Signs: unknown) (unknown) (no (unknown) (unknown) Instructions: DI (units (unknown) date) for Urinary Tract unknown) Infection (UTI), DI for Bacterial Vaginosis, (unknown) (no (unknown) (unknown) Integumentary/[place] (units (unknown) date) sts unknown) (unknown) (no (unknown) (unknown) [facility] (units (unknown) date) [address] unknown) [place] [address] (unknown) (no (unknown) (unknown) Lab Data (units (unkno wn) date) unknown) (unknown) (no (unknown) (unknown) Lab Results (units (un known) date) unknown) (unknown) (no (unknown) (unknown) Labs: (units (unkno wn) date) unknown) (unknown) (no (unknown) (unknown) Last Admin: (units (un known) date) 11/25/22 15:16 unknown) Dose: 1,500 unit (unknown) (no (unknown) (unknown) Lip/Tongue/Throat (units (unknown) date) unknown) (unknown) (no (unknown) (unknown) Lymph # (Auto) (units (unknown) date) (5267-7253) /uL unknown) (unknown) (no (unknown) (unknown) Lymph # (Auto) (units (unknown) date) 1400 (6129-3108) unknown) /uL (unknown) (no (unknown) (unknown) Lymph % (Auto) (units (unknown) date) (25-40) % unknown) (unknown) (no (unknown) (unknown) Lymph % (Auto) (units (unknown) date) 25.2 (25-40) % unknown) (unknown) (no (unknown) (unknown) MCH (26-34) PG (units (unknown) date) unknown) (unknown) (no (unknown) (unknown) MCH 31.6 (26-34) (units (unknown) date) PG unknown) (unknown) (no (unknown) (unknown) MCHC (30-36) % (units (unknown) date) unknown) (unknown) (no (unknown) (unknown) MCHC 33.7 (30-36) (units (unknown) date) % unknown) (unknown) (no (unknown) (unknown) MCV (80-100) fL (units (unknown) date) unknown) (unknown) (no (unknown) (unknown) MCV 93.8 (80-100) (units (unknown) date) fL unknown) (unknown) (no (unknown) (unknown) MDM - OB/Uterine (units (unknown) date) Contractions unknown) (unknown) (no (unknown) (unknown) MDM Narrative (units ( unknown) date) unknown) (unknown) (no (unknown) (unknown) Maternal cervical (units (unknown) date) canal is 3.2 cm unknown) long. No abnormalities found on ultrasound. (unknown) (no (unknown) (unknown) Medical decision (units (unknown) date) making narrative: unknown) (unknown) (no (unknown) (unknown) Medical records (units (unknown) date) reviewed: Yes unknown) (unknown) (no (unknown) (unknown) Medication (units (unk nown) date) Instructions unknown) Recorded Confirmed (unknown) (no (unknown) (unknown) Medication (units (unk nown) date) Instructions unknown) Recorded (unknown) (no (unknown) (unknown) Miscellaneous,Doct (units (unknown) date) or, MD [Primary unknown) Care Provider] (unknown) (no (unknown) (unknown) Mode of arrival: (units (unknown) date) Ambulatory unknown) (unknown) (no (unknown) (unknown) [place] # (Auto) (units ( unknown) date) (0-900) /uL unknown) (unknown) (no (unknown) (unknown) [place] # (Auto) 300 (units (unknown) date) (0-900) /uL unknown) (unknown) (no (unknown) (unknown) [place] % (Auto) (units ( unknown) date) (3-14) % unknown) (unknown) (no (unknown) (unknown) [place] % (Auto) 5.8 (units (unknown) date) (3-14) % unknown) (unknown) (no (unknown) (unknown) Mouth:?oral (units (un known) date) mucosae normal unknown) (unknown) (no (unknown) (unknown) Musculoskeletal (units (unknown) date) unknown) (unknown) (no (unknown) (unknown) Musculoskeletal: (units (unknown) date) Denies back pain, unknown) Denies muscle weakness, Denies neck pain, (unknown) (no (unknown) (unknown) NOW ONE (units (unkno wn) date) unknown) (unknown) (no (unknown) (unknown) Narrative (units (unkn own) date) unknown) (unknown) (no (unknown) (unknown) Neck (units (unkno wn) date) unknown) (unknown) (no (unknown) (unknown) Neck:?normal (units (u nknown) date) visual inspection unknown) and no lymphadenopathy noted (unknown) (no (unknown) (unknown) Neuro (units (unkno wn) date) unknown) (unknown) (no (unknown) (unknown) Neurologic (units (unk nown) date) unknown) (unknown) (no (unknown) (unknown) Neurologic: Denies (units (unknown) date) behavioral changes, unknown) Denies confusion, Denies dizziness, (unknown) (no (unknown) (unknown) Neut # (Auto) (units ( unknown) date) (3164-1342) /uL unknown) (unknown) (no (unknown) (unknown) Neut # (Auto) 3900 (units (unknown) date) (0488-3084) /uL unknown) (unknown) (no (unknown) (unknown) Neut % (Auto) (units ( unknown) date) (50-75) % unknown) (unknown) (no (unknown) (unknown) Neut % (Auto) 68.0 (units (unknown) date) (50-75) % unknown) (unknown) (no (unknown) (unknown) New (units (unkno wn) date) unknown) (unknown) (no (unknown) (unknown) No Action (units (unkn own) date) unknown) (unknown) (no (unknown) (unknown) Nose:?external (units (unknown) date) nose normal unknown) (unknown) (no (unknown) (unknown) Ordered: (units (unkno wn) date) unknown) (unknown) (no (unknown) (unknown) Orders (units (unkno wn) date) unknown) (unknown) (no (unknown) (unknown) Oxygen Delivery (units (unknown) date) Method 11/25/22 unknown) 12:55 (unknown) (no (unknown) (unknown) Oxygen Delivery (units (unknown) date) Method Room Air unknown) Room Air (unknown) (no (unknown) (unknown) PT (10.1-12.7) (units (unknown) date) SECONDS unknown) (unknown) (no (unknown) (unknown) PT 10.7 (units (unkno wn) date) (10.1-12.7) SECONDS unknown) (unknown) (no (unknown) (unknown) Patient (units (unkno wn) date) Disposition: Home unknown) (unknown) (no (unknown) (unknown) Patient: (units (unkno wn) date) Yu Gilbert unknown) MR#: [id number] (unknown) (no (unknown) (unknown) Penicillins (units (un known) date) Allergy Severe unknown) Swelling Verified 10/30/22 15:44 (unknown) (no (unknown) (unknown) Plt Count (units (unkn own) date) (150-400) X103/uL unknown) (unknown) (no (unknown) (unknown) Plt Count 265 (units ( unknown) date) (150-400) X103/uL unknown) (unknown) (no (unknown) (unknown) Potassium (units (unkn own) date) (3.4-5.1) mmol/L unknown) (unknown) (no (unknown) (unknown) Potassium 3.9 (units ( unknown) date) (3.4-5.1) mmol/L unknown) (unknown) (no (unknown) (unknown) Prescriptions: (units (unknown) date) unknown) (unknown) (no (unknown) (unknown) Previous Rx's (units ( unknown) date) unknown) (unknown) (no (unknown) (unknown) Psychiatric (units (un known) date) unknown) (unknown) (no (unknown) (unknown) Psychiatric: Denies (units (unknown) date) anxiety, Denies unknown) behavioral changes, Denies confusion, Denies (unknown) (no (unknown) (unknown) Pulse Oximetry 97 (units (unknown) date) 11/25/22 12:55 unknown) (unknown) (no (unknown) (unknown) Pulse Oximetry 97 (units (unknown) date) 98 98 unknown) (unknown) (no (unknown) (unknown) Pulse Rate 81 (units ( unknown) date) 11/25/22 12:55 unknown) (unknown) (no (unknown) (unknown) Pulse Rate 81 79 (units (unknown) date) 79 unknown) (unknown) (no (unknown) (unknown) RBC (4.0-5.2) (units ( unknown) date) X106/uL unknown) (unknown) (no (unknown) (unknown) RBC 3.36 L (units (unk nown) date) (4.0-5.2) X106/uL unknown) (unknown) (no (unknown) (unknown) RDW (11.6-14.8) % (units (unknown) date) unknown) (unknown) (no (unknown) (unknown) RDW 13.8 (units (unkno wn) date) (11.6-14.8) % unknown) (unknown) (no (unknown) (unknown) ROS Unobtainable: (units (unknown) date) All systems unknown) reviewed + are unremarkable except as noted in HPI (unknown) (no (unknown) (unknown) Rate:?regular rate (units (unknown) date) unknown) (unknown) (no (unknown) (unknown) Referrals: (units (unk nown) date) unknown) (unknown) (no (unknown) (unknown) Related Data (units (u nknown) date) unknown) (unknown) (no (unknown) (unknown) Resp (units (unkno wn) date) unknown) (unknown) (no (unknown) (unknown) Respiratory Rate (units (unknown) date) 17 11/25/22 12:55 unknown) (unknown) (no (unknown) (unknown) Respiratory Rate (units (unknown) date) 17 18 unknown) (unknown) (no (unknown) (unknown) Respiratory (units (un known) date) unknown) (unknown) (no (unknown) (unknown) Respiratory: Denies (units (unknown) date) cough, Denies unknown) dyspnea, Denies dyspnea on exertion and Denies (unknown) (no (unknown) (unknown) Review of Systems (units (unknown) date) unknown) (unknown) (no (unknown) (unknown) Rho Immune (units (unk nown) date) Globulin (Rho(D) unknown) Immune Globulin 1,500 Unit Syringe) 1,500 unit IM (unknown) (no (unknown) (unknown) Rhythm:?regular (units (unknown) date) rhythm unknown) (unknown) (no (unknown) (unknown) Rx Instructions: (units (unknown) date) unknown) (unknown) (no (unknown) (unknown) Signed By: (units (unk nown) date) unknown) (unknown) (no (unknown) (unknown) Skin/Breast: (units (u nknown) date) Denies pruritus, unknown) Denies erythema, Denies rash and Denies wounds (unknown) (no (unknown) (unknown) Sodium (137-145) (units (unknown) date) mmol/L unknown) (unknown) (no (unknown) (unknown) Sodium 135 L (units (u nknown) date) (137-145) mmol/L unknown) (unknown) (no (unknown) (unknown) Source: patient (units (unknown) date) unknown) (unknown) (no (unknown) (unknown) Stand Alone Forms: (units (unknown) date) Patient Portal/API unknown) (unknown) (no (unknown) (unknown) Stated complaint: (units (unknown) date) 14 weeks unknown) preg/bleeding (unknown) (no (unknown) (unknown) Stop: 11/25/22 (units (unknown) date) 14:56 unknown) (unknown) (no (unknown) (unknown) Supervised by (units ( unknown) date) Iain Hammer, DO unknown) (unknown) (no (unknown) (unknown) Temperature 98 F (units (unknown) date) 11/25/22 12:55 unknown) (unknown) (no (unknown) (unknown) Temperature 98 F (units (unknown) date) unknown) (unknown) (no (unknown) (unknown) Throat:?posterior (units (unknown) date) oropharynx normal unknown) (unknown) (no (unknown) (unknown) Time Seen by (units (u nknown) date) Provider: 11/25/22 unknown) 12:46 (unknown) (no (unknown) (unknown) Total Bilirubin < (units (unknown) date) 0.1 L (0.2-1.3) unknown) mg/dL (unknown) (no (unknown) (unknown) Total Bilirubin (units (unknown) date) (0.2-1.3) mg/dL unknown) (unknown) (no (unknown) (unknown) Total Protein (units ( unknown) date) (6.3-8.2) g/dL unknown) (unknown) (no (unknown) (unknown) Total Protein 6.5 (units (unknown) date) (6.3-8.2) g/dL unknown) (unknown) (no (unknown) (unknown) UA is positive for (units (unknown) date) UTI. Labs within unknown) normal limits. Ultrasound shows a single (unknown) (no (unknown) (unknown) Ur Squamous Epith (units (unknown) date) Cells (0-5/HPF) unknown) (unknown) (no (unknown) (unknown) Ur Squamous Epith (units (unknown) date) Cells 5-10 /hpf H unknown) (0-5/HPF) (unknown) (no (unknown) (unknown) Urine Bacteria (units (unknown) date) (None) unknown) (unknown) (no (unknown) (unknown) Urine Bacteria (units (unknown) date) Many (>30) H (None) unknown) (unknown) (no (unknown) (unknown) Urine Dip (units (unkn own) date) unknown) (unknown) (no (unknown) (unknown) Urine Mucus (units (un known) date) (Negative) unknown) (unknown) (no (unknown) (unknown) Urine Mucus 1+ H (units (unknown) date) (Negative) unknown) (unknown) (no (unknown) (unknown) Urine RBC (units (unkn own) date) (0-5/HPF) unknown) (unknown) (no (unknown) (unknown) Urine RBC 5-10/hpf (units (unknown) date) H (0-5/HPF) unknown) (unknown) (no (unknown) (unknown) Urine Specific (units (unknown) date) [place] 1.020 unknown) (unknown) (no (unknown) (unknown) Urine WBC (units (unkn own) date) (0-5/HPF) unknown) (unknown) (no (unknown) (unknown) Urine WBC 5-10/hpf (units (unknown) date) H (0-5/HPF) unknown) (unknown) (no (unknown) (unknown) Vaginal bleeding, (units (unknown) date) UTI (urinary tract unknown) infection), Bacterial vaginosis (unknown) (no (unknown) (unknown) Vital Signs - 8 hr (units (unknown) date) unknown) (unknown) (no (unknown) (unknown) Vital Signs (units (un known) date) unknown) (unknown) (no (unknown) (unknown) Vital signs: (units (u nknown) date) unknown) (unknown) (no (unknown) (unknown) WBC (4.5-11.0) (units (unknown) date) X103/uL unknown) (unknown) (no (unknown) (unknown) WBC 5.7 (4.5-11.0) (units (unknown) date) X103/uL unknown) (unknown) (no (unknown) (unknown) Wet prep was (units (u nknown) date) positive for clue unknown) cells, will treat for bacterial vaginosis in (unknown) (no (unknown) (unknown) Mitch as (units (unkn own) date) scheduled tomorrow. unknown) ED return precautions were discussed with (unknown) (no (unknown) (unknown) You were evaluated (units (unknown) date) in the ED today for unknown) vaginal bleeding during . Your (unknown) (no (unknown) (unknown) [Embedded Image (units (unknown) date) Not Available] unknown) (unknown) (no (unknown) (unknown) addition to the (units (unknown) date) UTI. unknown) (unknown) (no (unknown) (unknown) and Denies (units (unk nown) date) orthopnea unknown) (unknown) (no (unknown) (unknown) and Denies (units (unk nown) date) weakness unknown) (unknown) (no (unknown) (unknown) and below (units (unkn own) date) unknown) (unknown) (no (unknown) (unknown) and has a (units (unkn own) date) appointment for unknown) tomorrow. Patient had a normal ultrasound 3 days ago (unknown) (no (unknown) (unknown) beats per minute. (units (unknown) date) Your urine was unknown) positive for a UTI. You also tested positive (unknown) (no (unknown) (unknown) capsule (Macrobid) (units (unknown) date) unknown) (unknown) (no (unknown) (unknown) caregiver, is on (units (unknown) date) light duty, however unknown) was trying to help lift patient's earlier (unknown) (no (unknown) (unknown) chest pain, (units (un known) date) shortness of unknown) breath, nausea, vomiting, flank pain, dysuria, (unknown) (no (unknown) (unknown) depression, Denies (units (unknown) date) homicidal ideation unknown) and Denies suicidal ideation (unknown) (no (unknown) (unknown) diarrhea, Denies (units (unknown) date) nausea and Denies unknown) vomiting (unknown) (no (unknown) (unknown) discharge since (units (unknown) date) yesterday, is not unknown) like cottage cheese, more runny and odorless. (unknown) (no (unknown) (unknown) documentation has (units (unknown) date) been reviewed and I unknown) agree with assessment and plan. (unknown) (no (unknown) (unknown) endorses a feeling (units (unknown) date) of pelvic and unknown) suprapubic heaviness. Patient states she is a (unknown) (no (unknown) (unknown) falls, Denies (units ( unknown) date) lethargy and Denies unknown) weakness (unknown) (no (unknown) (unknown) for bacterial (units ( unknown) date) vaginosis. You are unknown) being prescribed 2 antibiotics for these (unknown) (no (unknown) (unknown) in the ED, with (units (unknown) date) follow-up with unknown) Mitch tomorrow. (unknown) (no (unknown) (unknown) infections. Please (units (unknown) date) take them as unknown) prescribed. Given that you are blood type A (unknown) (no (unknown) (unknown) lightheadedness, (units (unknown) date) Denies unknown) palpitations, Denies dyspnea, Denies dyspnea on exertion (unknown) (no (unknown) (unknown) lightheadedness, (units (unknown) date) dizziness, syncope. unknown) Patient denies pelvic cramping, but (unknown) (no (unknown) (unknown) living (units (unkno wn) date) intrauterine unknown) gestation that is estimated at 16 weeks. heart rate (unknown) (no (unknown) (unknown) metronidazole 500 (units (unknown) date) mg tablet 500 mg PO unknown) Q12H 7 days #14 tabs 11/25/22 (unknown) (no (unknown) (unknown) metronidazole 500 (units (unknown) date) mg tablet unknown) (unknown) (no (unknown) (unknown) monohydrate/macroc (units (unknown) date) rystals 100 mg unknown) (unknown) (no (unknown) (unknown) must administer (units (unknown) date) with a meal/food unknown) (unknown) (no (unknown) (unknown) neck pain, Denies (units (unknown) date) sore throat and unknown) Denies throat swelling (unknown) (no (unknown) (unknown) negative, you were (units (unknown) date) also given a RhoGAM unknown) shot. You also have a appointment with (unknown) (no (unknown) (unknown) nitrofurantoin 100 (units (unknown) date) mg PO Q12H 7 days unknown) #14 caps 11/25/22 (unknown) (no (unknown) (unknown) nitrofurantoin (units (unknown) date) monohyd/m-cryst unknown) [Macrobid] 100 mg capsule (unknown) (no (unknown) (unknown) of (units (unkno wn) date) unknown) (unknown) (no (unknown) (unknown) other. Will obtain (units (unknown) date) labs, UA, obstetric unknown) ultrasound, wet prep. (unknown) (no (unknown) (unknown) palpation. There (units (unknown) date) is no CVA unknown) tenderness. (unknown) (no (unknown) (unknown) patient is A (units (u nknown) date) negative. unknown) Maldonado recommended 300 mcg dose of RhoGAM IM today (unknown) (no (unknown) (unknown) patient. Patient (units (unknown) date) verbalized unknown) understanding. (unknown) (no (unknown) (unknown) pelvic pain, (units (u nknown) date) Denies flank pain, unknown) Denies urinary incontinence, Denies urinary (unknown) (no (unknown) (unknown) placental abruption (units (unknown) date) versus threatened unknown) miscarriage versus vaginal bleeding during (unknown) (no (unknown) (unknown) placental (units (unkn own) date) abruption with her unknown) prior pregnancies. Patient sees OBGYN Dr. Meyer, (unknown) (no (unknown) (unknown) versus (units (unknown) date) UTI versus unknown) bacterial vaginosis versus yeast infection versus (unknown) (no (unknown) (unknown) prenat.vits,karina,mi (units (unknown) date) [id number] 1 tab unknown) PO DAILY 09/19/22 11/25/22 (unknown) (no (unknown) (unknown) prenat.vits,karina,mi (units (unknown) date) [id number] Tablet unknown) (unknown) (no (unknown) (unknown) shellfish derived (units (unknown) date) AdvReac Mild unknown) Diarrhea Verified 10/30/22 15:44 (unknown) (no (unknown) (unknown) that showed a (units ( unknown) date) heart tone of unknown) 145. Patient states she is had some vaginal (unknown) (no (unknown) (unknown) the ED if you have (units (unknown) date) significantly unknown) increased bleeding, you have trouble breathing, (unknown) (no (unknown) (unknown) today after which (units (unknown) date) her vaginal unknown) bleeding started. Patient has a history of (unknown) (no (unknown) (unknown) ultrasound shows a (units (unknown) date) 16-week-old live unknown) with a heart rate of 147 (unknown) (no (unknown) (unknown) urgency and (units (un known) date) Reports vaginal unknown) discharge (unknown) (no (unknown) (unknown) vaginal bleeding, (units (unknown) date) lower abdominal unknown) pressure. Concern for placenta previa versus (unknown) (no (unknown) (unknown) vaginal bleeding, (units (unknown) date) lower abdominal unknown) pressure. Patient denies fevers, chills, (unknown) (no (unknown) (unknown) wheezing (units (unkno wn) date) unknown) (unknown) (no (unknown) (unknown) you experience (units (unknown) date) chest pain, unknown) worsening abdominal pain. Result panel 556 (unknown) (no (unknown) (unknown) (no value) (units (unk nown) date)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 (units (unknown) date) If there are any unknown) questions, please contact the Medical Records (unknown) (no (unknown) (unknown) helmet use: Yes (units (unknown) date) unknown) (unknown) (no (unknown) (unknown) history is (units (unk nown) date) notable for unknown) placental abruptions occurring with all 3 of her (unknown) (no (unknown) (unknown) hours a day and (units (unknown) date) participation of unknown) father in care and office visits (unknown) (no (unknown) (unknown) household (units (unkn own) date) members: children unknown) (unknown) (no (unknown) (unknown) housing: house (units (unknown) date) unknown) (unknown) (no (unknown) (unknown) (still (units (unknown) date) on his unknown) insurance). (unknown) (no (unknown) (unknown) immune, works in (units (unknown) date) long-term care), unknown) hepatitis risk discussed, tuberculosis (unknown) (no (unknown) (unknown) in current or (units ( unknown) date) past unknown) relationships, have you been: hit and hurt (unknown) (no (unknown) (unknown) irritability (units (u nknown) date) unknown) (unknown) (no (unknown) (unknown) lives (units (unkno wn) date) independently: unknown) Yes (unknown) (no (unknown) (unknown) marital status: (units (unknown) date) unmarried,single unknown) (unknown) (no (unknown) (unknown) marriage and (units (u nknown) date) current partner unknown) have both been safe. Still on good terms with ex (unknown) (no (unknown) (unknown) may occur. (units (unk nown) date) Occasional unknown) wrong-word or 'sound-alike' substitutions may have (unknown) (no (unknown) (unknown) metronidazole (units ( unknown) date) 500 mg tablet 500 unknown) mg PO Q12H 7 days #14 tabs 11/25/22 [Rx] (unknown) (no (unknown) (unknown) needed. 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 Please (unknown) (no (unknown) (unknown) pets and (units (unkno wn) date) animals: Yes (2 unknown) dogs, aware of toxo precautions) (unknown) (no (unknown) (unknown) placental (units (unkn own) date) abruption [place] unknown) (unknown) (no (unknown) (unknown) placental (units (unkno wn) date) abruption in that unknown) she does not have chronic hypertension, she is not a (unknown) (no (unknown) (unknown) placentation. (units ( unknown) date) Patient is Rh unknown) negative and familiar with RhoGAM. labs (unknown) (no (unknown) (unknown) pregnancies. The (units (unknown) date) abruption with unknown) her 1st child necessitated pre term delivery of (unknown) (no (unknown) (unknown) should (units (unknown) date) she start having unknown) any signs of bleeding or abnormal (unknown) (no (unknown) (unknown) , first (units (unknown) date) trimester, Z3A.16 unknown) - 16 weeks gestation of (unknown) (no (unknown) (unknown) prenat.vits,karina, (units (unknown) date) [id number] 1 unknown) tab PO DAILY 09/19/22 [History Confirmed (unknown) (no (unknown) (unknown) delivery (units (unknown) date) Jay unknown) (unknown) (no (unknown) (unknown) delivery (units (unknown) date) unknown) (unknown) (no (unknown) (unknown) labor (units ( unknown) date) Vince unknown) (unknown) (no (unknown) (unknown) labor (units ( unknown) date) unknown) (unknown) (no (unknown) (unknown) read the note (units ( unknown) date) carefully and unknown) recognize, using context, where these substitutions (unknown) (no (unknown) (unknown) requiring (units (unkn own) date) delivery unknown) (unknown) (no (unknown) (unknown) seatbelt use: (units ( unknown) date) always unknown) (unknown) (no (unknown) (unknown) second hand (units (un known) date) exposure: Yes unknown) (son vapes) (unknown) (no (unknown) (unknown) shellfish (units (unkn own) date) derived Adverse unknown) Reaction (Mild, Verified 11/26/22 09:20) (unknown) (no (unknown) (unknown) software. (units (unkn own) date) Although every unknown) effort is made to edit content, driver/sales workers errors (unknown) (no (unknown) (unknown) special chidi (units ( unknown) date) needs: No unknown) (unknown) (no (unknown) (unknown) substance use (units ( unknown) date) type: marijuana unknown) (edibles for sleep when not or (unknown) (no (unknown) (unknown) the other 2 (units (un known) date) occurred at or unknown) near term. Patient has no known risk factors for (unknown) (no (unknown) (unknown) travel history: (units (unknown) date) recent (domestic unknown) only) (unknown) (no (unknown) (unknown) unspecified (units (un known) date) trimester, Z34.81 unknown) - Encounter for supervision of other normal (unknown) (no (unknown) (unknown) water heater (units (u nknown) date) temp set < 120 unknown) deg: Yes (unknown) (no (unknown) (unknown) well-balanced (units ( unknown) date) diet: daily or unknown) most days (unknown) (no (unknown) (unknown) working smoke (units ( unknown) date) detector in home: unknown) Yes Result panel 558 (unknown) (no (unknown) (unknown) (no value) (units (unk nown) date) unknown) (unknown) (no (unknown) (unknown) (+8 lb) 94/62 N (units (unknown) date) unknown) (unknown) (no (unknown) (unknown) Genetic (units (unkn own) date) Screening/Teratol unknown) ogy Counseling - Includes patient, baby's father, or (unknown) (no (unknown) (unknown) - Close (units (unkno wn) date) observation for unknown) bleeding, abdominal pain (unknown) (no (unknown) (unknown) - Consider (units (unk nown) date) induction after unknown) 39 weeks if undelivered by then (unknown) (no (unknown) (unknown) -?-?-?-?-?-?-?-? (units (unknown) date) -?-?-?-? unknown) (unknown) (no (unknown) (unknown) 10/30/22 (units (unkno wn) date) unknown) (unknown) (no (unknown) (unknown) 11/25/22] (units (unkn own) date) unknown) (unknown) (no (unknown) (unknown) 11/26/22 (units (unkno wn) date) unknown) (unknown) (no (unknown) (unknown) 12/04/21 4-5 (units (u nknown) date) spontaneous unknown) (unknown) (no (unknown) (unknown) [id number] (units (unkno wn) date) unknown) (unknown) (no (unknown) (unknown) 05/17/97 30 5 lb (units (unknown) date) 11.712 oz Male unknown) vaginal live - (unknown) (no (unknown) (unknown) 09:12 (units (unkno wn) date) unknown) (unknown) (no (unknown) (unknown) 08/27/13 35 4 (units ( unknown) date) Male vaginal live unknown) - [facility] (unknown) (no (unknown) (unknown) 09/30/12 38 6 (units ( unknown) date) Female vaginal unknown) live - full term [facility] (unknown) (no (unknown) (unknown) 12w 2d 115 lb (units ( unknown) date) unknown) (unknown) (no (unknown) (unknown) 3-4 months (units (unk nown) date) placental unknown) abruption (unknown) (no (unknown) (unknown) 5 months (units (unkno wn) date) placental unknown) (unknown) (no (unknown) (unknown) AFP, Open Spina (units (unknown) date) Bifida Today unknown) O09.529 - Supervision of elderly multigravida, (unknown) (no (unknown) (unknown) Abnormal lab (units (u nknown) date) values 1st unknown) trimester: discussed (unknown) (no (unknown) (unknown) Add'l Plan (units (unk nown) date) Details unknown) (unknown) (no (unknown) (unknown) Additional (units (unk nown) date) Social History unknown) (unknown) (no (unknown) (unknown) Age at menarche: (units (unknown) date) 13 unknown) (unknown) (no (unknown) (unknown) Age/Sex: 41 / F (units (unknown) date) Date of Service: unknown) (unknown) (no (unknown) (unknown) Allergies (units (unkn own) date) unknown) (unknown) (no (unknown) (unknown) [place], [place] (units ( unknown) date) [id number] unknown) (unknown) (no (unknown) (unknown) Anesthesia (units (unk nown) date) unknown) (unknown) (no (unknown) (unknown) Aneuploidy (units (unk nown) date) Screening unknown) Offered: Accepted (wants CFDNA) (unknown) (no (unknown) (unknown) Anticipate (units (unknown) date) unknown) (unknown) (no (unknown) (unknown) Anticipated (units (un known) date) course of unknown) care: discussed (unknown) (no (unknown) (unknown) Assessment and (units (unknown) date) Plan unknown) (unknown) (no (unknown) (unknown) Attending Dr: (units ( unknown) date) Jose Meyer unknown) (unknown) (no (unknown) (unknown) BMI 23.4 (units (unkno wn) date) unknown) (unknown) (no (unknown) (unknown) BP 106/66 (units (unkn own) date) unknown) (unknown) (no (unknown) (unknown) (units (unkno wn) date) Plan/Preferences unknown) (unknown) (no (unknown) (unknown) Planning (units (unknown) date) unknown) (unknown) (no (unknown) (unknown) Blood Pressure (units (unknown) date) Location Rt unknown) brachial (unknown) (no (unknown) (unknown) Blood (units (unkno wn) date) transfusions?: unknown) yes (Never had but would accept) (unknown) (no (unknown) (unknown) Breastfeed Preg (units (unknown) date) Comp Name unknown) (unknown) (no (unknown) (unknown) COVID-19 (units (unkno wn) date) unknown) (unknown) (no (unknown) (unknown) Caffeine use, (units ( unknown) date) Exercise and unknown) activity, work/environmenta l/hazards, Sexual (unknown) (no (unknown) (unknown) Current Estimate (units (unknown) date) 05/12/23 LMP unknown) (Certain) 16w 1d (unknown) (no (unknown) (unknown) Current (units (unkno wn) date) History unknown) (unknown) (no (unknown) (unknown) DNA (units (unkno wn) date) unknown) (unknown) (no (unknown) (unknown) : 1980 (units (unknown) date) Acct:[id number] unknown) (unknown) (no (unknown) (unknown) Date of positive (units (unknown) date) home unknown) test: 08/30/22 (unknown) (no (unknown) (unknown) Date (units (unkno wn) date) unknown) (unknown) (no (unknown) (unknown) Del. Date (units (unkn own) date) GA/Weeks Labor unknown) Lgth Wt Sex Route Outcome Anesthesia Place (unknown) (no (unknown) (unknown) Delv (units (unkno wn) date) unknown) (unknown) (no (unknown) (unknown) Denies Congenital (units (unknown) date) Heart Defect, unknown) Denies Down Syndrome, Denies Muscular Dystrophy, (unknown) (no (unknown) (unknown) Denies Maternal (units (unknown) date) Metabolic unknown) Disorder (EG,TYPE 1 Diabetes, PKU), Denies Patient or (unknown) (no (unknown) (unknown) Denies Neural (units ( unknown) date) Tube Defect unknown) (Meningomyelocele , Spina Bifida, or Anencephaly), (unknown) (no (unknown) (unknown) Denies Sickle (units ( unknown) date) Cell Disease or unknown) Trait (), Denies Hemophilia or other blood (unknown) (no (unknown) (unknown) Denies Иван-Sachs (units (unknown) date) (Ashkenazi unknown) Religious, Cajun, [place] Islander), Denies Florinda (unknown) (no (unknown) (unknown) Denies other (units (u nknown) date) unknown) (unknown) (no (unknown) (unknown) Denies over the (units (unknown) date) counter unknown) medications, Denies alcohol, Denies illicit drugs and (unknown) (no (unknown) (unknown) Depression (units (unk nown) date) unknown) (unknown) (no (unknown) (unknown) Depression: (units (un known) date) discussed unknown) (unknown) (no (unknown) (unknown) Dept at (units (unkno wn) date) . unknown) (unknown) (no (unknown) (unknown) Diarrhea (units (unkno wn) date) unknown) (unknown) (no (unknown) (unknown) Diet and (units (unkno wn) date) Exercise unknown) (unknown) (no (unknown) (unknown) Disease (units (unkno wn) date) (Ashkenazi unknown) Religious), Denies Familial Dysautonomia (Ashkenazi Religious), (unknown) (no (unknown) (unknown) Documented By: (units (unknown) date) Jose Meyer unknown) 11/26/22 0919 (unknown) (no (unknown) (unknown) Domestic (units (unkno wn) date) violence, Travel, unknown) Seatbelt use and Influenza vaccine (will get flu shot (unknown) (no (unknown) (unknown) Draft (units (unkno wn) date) unknown) (unknown) (no (unknown) (unknown) Isak Gee (units (unknown) date) unknown) (unknown) (no (unknown) (unknown) BRENDA Calculator (units (unknown) date) unknown) (unknown) (no (unknown) (unknown) EGA Weight BP (units ( unknown) date) UGlucose unknown) (unknown) (no (unknown) (unknown) Estimated (units (unkn own) date) Delivery Date unknown) Method Current (unknown) (no (unknown) (unknown) Expected (units (unkno wn) date) Delivery unknown) Route/Plan (unknown) (no (unknown) (unknown) Family History (units (unknown) date) (Updated 11/25/22 unknown) @ 20:07 by Kristin Oconnor) (unknown) (no (unknown) (unknown) Father of Baby: (units (unknown) date) same unknown) (unknown) (no (unknown) (unknown) [facility]) (unknown) (no (unknown) (unknown) First Trimester (units (unknown) date) Education unknown) Checklist (unknown) (no (unknown) (unknown) (units (unkno wn) date) unknown) (unknown) (no (unknown) (unknown) Genetic (units (unkno wn) date) Screening + unknown) Counseling (unknown) (no (unknown) (unknown) Genetic (units (unkno wn) date) Screening unknown) (unknown) (no (unknown) (unknown) Grandfather (units (un known) date) History unknown) of heart attack (unknown) (no (unknown) (unknown) Grandfather (units (un known) date) History of heart unknown) attack (unknown) (no (unknown) (unknown) Grandmother (units (un known) date) History unknown) of heart attack (unknown) (no (unknown) (unknown) Grandmother (units (un known) date) History of heart unknown) attack (unknown) (no (unknown) (unknown) 5 (units (unkn own) date) Multiple births 0 unknown) (unknown) (no (unknown) (unknown) H/O breast (units (unk nown) date) surgery () unknown) (unknown) (no (unknown) (unknown) H/O rhinoplasty (units (unknown) date) () unknown) (unknown) (no (unknown) (unknown) HIV risk (units (unkno wn) date) evaluation: low unknown) risk (unknown) (no (unknown) (unknown) Health Center (units ( unknown) date) Education unknown) (unknown) (no (unknown) (unknown) Health center (units ( unknown) date) information: unknown) nature of practice discussed, personnel (unknown) (no (unknown) (unknown) Height 5 ft (units (un known) date) unknown) (unknown) (no (unknown) (unknown) Hepatitis C risk (units (unknown) date) evaluation: low unknown) risk (unknown) (no (unknown) (unknown) History of (units (unk nown) date) Hepatitis B: No unknown) (unknown) (no (unknown) (unknown) History of (units (unk nown) date) Hepatitis C: No unknown) (unknown) (no (unknown) (unknown) History of (units (unk nown) date) cosmetic surgery unknown) (unknown) (no (unknown) (unknown) Hospital: [facility], (units (unknown) date) may be moving to unknown) [place] in March (unknown) (no (unknown) (unknown) [place] (units (u nknown) date) [place], Denies unknown) Other inherited genetic or chromosomal disorder, (unknown) (no (unknown) (unknown) Hx # (units (u nknown) date) Pregnancies 2 unknown) Elective abortions 0 (unknown) (no (unknown) (unknown) Hx # Term (units (unkn own) date) Pregnancies 1 unknown) Ectopic pregnancies 0 (unknown) (no (unknown) (unknown) Hx placental (units (u nknown) date) abruption with unknown) each of her three pregnancies; first (unknown) (no (unknown) (unknown) Hx precipitous (units (unknown) date) delivery with her unknown) 3rd delivery (unknown) (no (unknown) (unknown) will be (units (unknown) date) adopted?: no unknown) (unknown) (no (unknown) (unknown) Infection (units (unkn own) date) History unknown) (unknown) (no (unknown) (unknown) Infectious (units (unk nown) date) Disease Education unknown) (unknown) (no (unknown) (unknown) Infectious (units (unk nown) date) disease exposure: unknown) chicken pox immunity discussed (believes non (unknown) (no (unknown) (unknown) Initial Weight: (units (unknown) date) 107 lb unknown) (unknown) (no (unknown) (unknown) Initials (units (unkno wn) date) unknown) (unknown) (no (unknown) (unknown) Intake Clinical (units (unknown) date) Staff unknown) (unknown) (no (unknown) (unknown) Intake Note: (units (u nknown) date) unknown) (unknown) (no (unknown) (unknown) Intake performed (units (unknown) date) by: Ashkan Frazier unknown) (unknown) (no (unknown) (unknown) Intake (units (unkno wn) date) unknown) (unknown) (no (unknown) (unknown) Live with (units (unkn own) date) someone with TB unknown) or exposed to TB: No (unknown) (no (unknown) (unknown) Loc: [facility] (units (unkno wn) date) unknown) (unknown) (no (unknown) (unknown) Marital status: (units (unknown) date) unmarried,single unknown) (unknown) (no (unknown) (unknown) May be moving to (units (unknown) date) [place] in March unknown) (unknown) (no (unknown) (unknown) Medical History (units (unknown) date) (Updated 11/25/22 unknown) @ 20:05 by Kristin Oconnor) (unknown) (no (unknown) (unknown) Medications (units (un known) date) unknown) (unknown) (no (unknown) (unknown) Menstrual (units (unkn own) date) History unknown) (unknown) (no (unknown) (unknown) N No no 162 12 (units (unknown) date) N/A absent 4 wks unknown) (unknown) (no (unknown) (unknown) Yu presents (units (unknown) date) today for her unknown) initial OB visit with this . She is (unknown) (no (unknown) (unknown) Notes (units (unkno wn) date) unknown) (unknown) (no (unknown) (unknown) Number of Living (units (unknown) date) Children 3 unknown) (unknown) (no (unknown) (unknown) Number of (units (unkn own) date) fetuses:: Single unknown) (unknown) (no (unknown) (unknown) Nutrition and (units ( unknown) date) weight gain unknown) counseling: special diet: discussed (unknown) (no (unknown) (unknown) OB Office Visit (units (unknown) date) unknown) (unknown) (no (unknown) (unknown) OB Visit Log (units (u nknown) date) unknown) (unknown) (no (unknown) (unknown) [place] 3 months none (units (unknown) date) unknown) (unknown) (no (unknown) (unknown) On control (units (unknown) date) at conception?: unknown) No (unknown) (no (unknown) (unknown) Orders (units (unkno wn) date) unknown) (unknown) (no (unknown) (unknown) Orders: (units (unkno wn) date) unknown) (unknown) (no (unknown) (unknown) Other Estimates (units (unknown) date) 05/13/23 unknown) Ultrasound #1 16w 0d (unknown) (no (unknown) (unknown) PFSH (units (unkno wn) date) unknown) (unknown) (no (unknown) (unknown) Para 3 (units (unkno wn) date) Spontaneous unknown) abortions 1 (unknown) (no (unknown) (unknown) Partner history (units (unknown) date) of STD: chlamydia unknown) (treated and cured) (unknown) (no (unknown) (unknown) Partner history (units (unknown) date) of genital unknown) herpes: No (unknown) (no (unknown) (unknown) Partner: Jorge (units (unknown) date) Camp[place] unknown) (unknown) (no (unknown) (unknown) Past Pregnancies (units (unknown) date) unknown) (unknown) (no (unknown) (unknown) Patient denies (units (unknown) date) significant unknown) medical history (unknown) (no (unknown) (unknown) Patient's age 36 (units (unknown) date) years or older as unknown) of estimated date of delivery: Yes (unknown) (no (unknown) (unknown) Patient: (units (unkno wn) date) Yu Gilbert unknown) MR#: [id number] (unknown) (no (unknown) (unknown) 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 Sparks unknown) (unknown) (no (unknown) (unknown) Penicillins (units (un known) date) Allergy (Severe, unknown) Verified 11/26/22 09:20) (unknown) (no (unknown) (unknown) Personal history (units (unknown) date) of STD: denies hx unknown) (unknown) (no (unknown) (unknown) Personal history (units (unknown) date) of genital unknown) herpes: No (unknown) (no (unknown) (unknown) Position Sitting (units (unknown) date) unknown) (unknown) (no (unknown) (unknown) Precautionary (units ( unknown) date) symptoms unknown) discussed with plans for bedrest again with this (unknown) (no (unknown) (unknown) (units (unkn own) date) History unknown) (unknown) (no (unknown) (unknown) type:: (units (unknown) date) Other Normal unknown) (unknown) (no (unknown) (unknown) (units (unkno wn) date) Education unknown) (unknown) (no (unknown) (unknown) Initial (units (unknown) date) Assessment unknown) (unknown) (no (unknown) (unknown) (units (unkno wn) date) Specific unknown) Issues/Plans (unknown) (no (unknown) (unknown) (units (unkno wn) date) Testing: unknown) discussed (unknown) (no (unknown) (unknown) Visit (units (unknown) date) unknown) (unknown) (no (unknown) (unknown) (units (unkno wn) date) education packet: unknown) Child education/plan, symptoms, (unknown) (no (unknown) (unknown) Primary Care (units (u nknown) date) Provider: MEGHAN Valentin unknown) Clare (unknown) (no (unknown) (unknown) Primary Ob (units (unk nown) date) Provider: unknown) Jose Meyer (unknown) (no (unknown) (unknown) Prior (units (unkno wn) date) GBS-Infected unknown) child: No (unknown) (no (unknown) (unknown) Providers (units (unkn own) date) unknown) (unknown) (no (unknown) (unknown) Pt here for OB (units (unknown) date) Check unknown) (unknown) (no (unknown) (unknown) Q12H 7 days #14 (units (unknown) date) caps 11/25/22 unknown) [Rx] (unknown) (no (unknown) (unknown) Reason For Visit (units (unknown) date) unknown) (unknown) (no (unknown) (unknown) Recent travel (units ( unknown) date) outside of unknown) country?: No (unknown) (no (unknown) (unknown) Recurrent (units (unkn own) date) loss or unknown) a stillbirth: No (unknown) (no (unknown) (unknown) Rubella (units (unkno wn) date) Immunization unknown) (unknown) (no (unknown) (unknown) S/O Tristian (units (unkno wn) date) unknown) (unknown) (no (unknown) (unknown) Safety (units (unkno wn) date) unknown) (unknown) (no (unknown) (unknown) Signed By: (units (unk nown) date) unknown) (unknown) (no (unknown) (unknown) Smoking Status: (units (unknown) date) Never smoker unknown) (unknown) (no (unknown) (unknown) Social History (units (unknown) date) unknown) (unknown) (no (unknown) (unknown) Support (units (unkno wn) date) Person(s):: Tristian unknown) (s/o) (unknown) (no (unknown) (unknown) Surgical History (units (unknown) date) (Updated 11/25/22 unknown) @ 20:05 by Kristin Oconnor) (unknown) (no (unknown) (unknown) Surrogate (units (unkn own) date) ?: no unknown) (unknown) (no (unknown) (unknown) Swelling of (units (un known) date) Lip/Tongue/Throat unknown) (unknown) (no (unknown) (unknown) Symptoms since (units (unknown) date) LMP: Reports unknown) amenorrhea, nausea, fatigue, urinary frequency and (unknown) (no (unknown) (unknown) Teratogen (units (unkn own) date) Exposures since unknown) LMP/Conception: Denies prescription medications, (unknown) (no (unknown) (unknown) Testing (units (unkno wn) date) Education unknown) (unknown) (no (unknown) (unknown) Testing (units (unkno wn) date) education unknown) completed: group B strep, Spina bifida testing and Cell Free (unknown) (no (unknown) (unknown) This note may (units ( unknown) date) have been all or unknown) partially generated using voice recognition (unknown) (no (unknown) (unknown) Tobacco + (units (unkn own) date) Substance Use unknown) (unknown) (no (unknown) (unknown) Tobacco Status (units (unknown) date) unknown) (unknown) (no (unknown) (unknown) Trimester:: 2nd (units (unknown) date) Trimester unknown) (14-<28wks) (unknown) (no (unknown) (unknown) Type(s) of (units (unk nown) date) exercise: other unknown) (very physical job) (unknown) (no (unknown) (unknown) UProtein Movement (units (unknown) date) PreLabor FHR Fndl unknown) Ht Pres Edema Cerv Exam US/Comment Next Appt (unknown) (no (unknown) (unknown) US OB >= 14 (units (un known) date) weeks Fetus 4 unknown) Weeks Z34.82 - Encounter for supervision of other (unknown) (no (unknown) (unknown) Varicella/chicke (units (unknown) date) n pox status: unknown) unknown (unknown) (no (unknown) (unknown) Visit Date: (units (un known) date) 10/30/22 Last unknown) Updated by: Jose Meyer MD (unknown) (no (unknown) (unknown) Visit Reasons: (units (unknown) date) OB unknown) (unknown) (no (unknown) (unknown) Vitals (units (unkno wn) date) unknown) (unknown) (no (unknown) (unknown) Vitamins and (units (u nknown) date) iron, Diet and unknown) weight gain, Fish and mercury intake, Smoking, (unknown) (no (unknown) (unknown) WG (units (unkno wn) date) unknown) (unknown) (no (unknown)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 (unknown) lives (units (unkno wn) date) independently: unknown) Yes (unknown) (no (unknown) (unknown) marital status: (units (unknown) date) unmarried,single unknown) (unknown) (no (unknown) (unknown) marriage and (units (u nknown) date) current partner unknown) have both been safe. Still on good terms with ex (unknown) (no (unknown) (unknown) may occur. (units (unk nown) date) Occasional unknown) wrong-word or 'sound-alike' substitutions may have (unknown) (no (unknown) (unknown) needed. 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 Please (unknown) (no (unknown) (unknown) pets and (units (unkno wn) date) animals: Yes (2 unknown) dogs, aware of toxo precautions) (unknown) (no (unknown) (unknown) placental (units (unkn own) date) abruption [place] unknown) (unknown) (no (unknown) (unknown) placental (units (unkno wn) date) abruption in that unknown) she does not have chronic hypertension, she is not a (unknown) (no (unknown) (unknown) placental (units (unkn own) date) abruptions, have unknown) recommended she go to bed rest for the duration of (unknown) (no (unknown) (unknown) placentation. (units ( unknown) date) Patient is Rh unknown) negative and familiar with RhoGAM. labs (unknown) (no (unknown) (unknown) pregnancies. The (units (unknown) date) abruption with unknown) her 1st child necessitated pre term delivery of (unknown) (no (unknown) (unknown) and a (units (unknown) date) letter provided unknown) for her employer. AFP testing ordered today. (unknown) (no (unknown) (unknown) should (units (unknown) date) she start having unknown) any signs of bleeding or abnormal (unknown) (no (unknown) (unknown) prenat.vits,karina, (units (unknown) date) [id number] 1 unknown) tab PO DAILY 09/19/22 [History Confirmed (unknown) (no (unknown) (unknown) delivery (units (unknown) date) Jay unknown) (unknown) (no (unknown) (unknown) delivery (units (unknown) date) unknown) (unknown) (no (unknown) (unknown) labor (units ( unknown) date) Vince unknown) (unknown) (no (unknown) (unknown) labor (units ( unknown) date) unknown) (unknown) (no (unknown) (unknown) previa noted. (units ( unknown) date) She received unknown) mini-dose Rhogam at the time of her ED visit. Her (unknown) (no (unknown) (unknown) read the note (units ( unknown) date) carefully and unknown) recognize, using context, where these substitutions (unknown) (no (unknown) (unknown) requiring (units (unkn own) date) delivery unknown) (unknown) (no (unknown) (unknown) seatbelt use: (units ( unknown) date) always unknown) (unknown) (no (unknown) (unknown) second hand (units (un known) date) exposure: Yes unknown) (son vapes) (unknown) (no (unknown) (unknown) shellfish (units (unkn own) date) derived Adverse unknown) Reaction (Mild, Verified 12/23/22 10:36) (unknown) (no (unknown) (unknown) software. (units (unkn own) date) Although every unknown) effort is made to edit content, driver/sales workers errors (unknown) (no (unknown) (unknown) special chidi (units ( unknown) date) needs: No unknown) (unknown) (no (unknown) (unknown) stopped (units (unkno wn) date) completely. unknown) Ultrasound performed yesterday was unremarkable with no (unknown) (no (unknown) (unknown) substance use (units ( unknown) date) type: marijuana unknown) (edibles for sleep when not or (unknown) (no (unknown) (unknown) the other 2 (units (un known) date) occurred at or unknown) near term. Patient has no known risk factors for (unknown) (no (unknown) (unknown) travel history: (units (unknown) date) recent (domestic unknown) only) (unknown) (no (unknown) (unknown) water heater (units (u nknown) date) temp set < 120 unknown) deg: Yes (unknown) (no (unknown) (unknown) well-balanced (units ( unknown) date) diet: daily or unknown) most days (unknown) (no (unknown) (unknown) working smoke (units ( unknown) date) detector in home: unknown) Yes Result panel 566 (unknown) (no date) (unknown) (unknown) Negative (units (unkn own) unknown) (unknown) (no date) (unknown) (unknown) Negative (units 04693 -5 unknown) (unknown) (no date) (unknown) (unknown) Negative (units 6410- 5 unknown) (unknown) (no date) (unknown) (unknown) Negative (units 6568- 0 unknown) Result panel 567 (unknown) (no (unknown) (unknown) (no value) (units (unk nown) date) unknown) (unknown) (no (unknown) (unknown) [id number] (units (unkno wn) date) unknown) (unknown) (no (unknown) (unknown) 12/23/22 (units (unkno wn) date) unknown) (unknown) (no (unknown) (unknown) [address] (units (unknown) date) unknown) (unknown) (no (unknown) (unknown) 7 mm in 3rd (units (un known) date) trimester. unknown) (unknown) (no (unknown) (unknown) Accession (units (unkn own) date) Number: unknown) [id number] (unknown) (no (unknown) (unknown) Age/Sex: 42 / F (units (unknown) date) Date of Service: unknown) (unknown) (no (unknown) (unknown) Amniotic fluid (units (unknown) date) index: 16.8 cm, unknown) normal range is 5-24 cm. (unknown) (no (unknown) (unknown) LOUIE Jackson (units ( unknown) date) [id number] unknown) (unknown) (no (unknown) (unknown) Anatomic survey: (units (unknown) date) unknown) (unknown) (no (unknown) (unknown) Approved by: (units (u nknown) date) Rodger Campos M.D. unknown) on 12/23/2022 at 14:44 (unknown) (no (unknown) (unknown) Bladder: Normal (units (unknown) date) in size. unknown) (unknown) (no (unknown) (unknown) COMPARISON: (units (un known) date) None. unknown) (unknown) (no (unknown) (unknown) Cord: 3-vessel (units (unknown) date) cord has unknown) orthotopic insertion. (unknown) (no (unknown) (unknown) : 1980 (units (unknown) date) Acct:[id number] unknown) (unknown) (no (unknown) (unknown) Diaphragm: (units (unk n) date) Diaphragm is unknown) intact. (unknown) (no (unknown) (unknown) Dictated by: (units (u nknown) date) Rodger Campos M.D. unknown) on 12/23/2022 at 14:41 (unknown) (no (unknown) (unknown) Endovaginal (units (un known) date) scanning: Not unknown) performed (unknown) (no (unknown) (unknown) Estimated date (units (unknown) date) of delivery (BRENDA) unknown) from first dating scan: 05/13/2023. (unknown) (no (unknown) (unknown) Extremities: All (units (unknown) date) 4 extremities unknown) identified. (unknown) (no (unknown) (unknown) FINDINGS: (units (unkn own) date) unknown) (unknown) (no (unknown) (unknown) Face: Nose and (units (unknown) date) lips, facial unknown) profile are normal. (unknown) (no (unknown) (unknown) heart (units (un known) date) rate: 145 beats unknown) per minute. (unknown) (no (unknown) (unknown) First dating (units (u nknown) date) scan (date and unknown) location): 10/08/2022. (unknown) (no (unknown) (unknown) General: A (units (unk nown) date) single living unknown) intrauterine gestation is present. (unknown) (no (unknown) (unknown) Heart: (units (unkno wn) date) 4-chambered heart unknown) is present, with normal ventricular outflow tracts. (unknown) (no (unknown) (unknown) IMPRESSION: (units (un known) date) unknown) (unknown) (no (unknown) (unknown) INDICATIONS: 20 (units (unknown) date) Week Anatomy Scan unknown) (unknown) (no (unknown) (unknown) [facility] (units (unknown) date) unknown) (unknown) (no (unknown) (unknown) Kidneys: No (units (un known) date) unknown) hydronephrosis. Normal is less than 5 mm in 2nd trimester, (unknown) (no (unknown) (unknown) LMP-based (units (unkn own) date) estimated date of unknown) delivery (BRENDA): 05/12/2023. (unknown) (no (unknown) (unknown) Last menstrual (units (unknown) date) period (LMP): unknown) 07/08/2022. (unknown) (no (unknown) (unknown) Loc: [place] (units (unkno wn) date) unknown) (unknown) (no (unknown) (unknown) Maternal (units (unkno wn) date) cervical canal: unknown) 3.4 cm long. Normal lower limit is 2.5 cm. (unknown) (no (unknown) (unknown) Neuro: (units (unkno wn) date) Ventricles are unknown) non-dilated at less than 10 mm. Cisterna magna is normal (unknown) (no (unknown) (unknown) Normal (units (u nknown) date) anatomy survey. unknown) Marginal placenta previa not seen on today's exam. (unknown) (no (unknown) (unknown) Nuchal skin (units (un known) date) fold: Normal at unknown) less than 6 mm between 14-21 weeks gestational age. (unknown) (no (unknown) (unknown) OUTSIDE/PRIOR (units ( unknown) date) DATING DATA: unknown) (unknown) (no (unknown) (unknown) Ordering (units (unkno wn) date) Provider: unknown) Jose Meyer MD (unknown) (no (unknown) (unknown) PROCEDURE: US OB (units (unknown) date) >= 14 WEEKS FETUS unknown) (unknown) (no (unknown) (unknown) Patient: (units (unkno wn) date) Yu Gilbert M unknown) MR#: [id number] (unknown) (no (unknown) (unknown) Placenta: (units (unkn own) date) Placental unknown) position is posterior , without previa. (unknown) (no (unknown) (unknown) Presentation: (units ( unknown) date) Vertex. unknown) (unknown) (no (unknown) (unknown) Procedure: US OB (units (unknown) date) >= 14 weeks Fetus unknown) (unknown) (no (unknown) (unknown) Real-time (units (unkn own) date) scanning was unknown) performed of the fetus, with image documentation and (unknown) (no (unknown) (unknown) Signed (units (unkno wn) date) unknown) (unknown) (no (unknown) (unknown) Single deepest (units (unknown) date) vertical pocket unknown) is 4.6 cm. (unknown) (no (unknown) (unknown) Single living (units ( unknown) date) intrauterine unknown) . BRENDA of 05/12/2023. (unknown) (no (unknown) (unknown) Spine: No (units (unkn own) date) evidence for unknown) spina bifida. (unknown) (no (unknown) (unknown) Stomach: (units (unkno wn) date) Left-sided unknown) stomach is present. (unknown) (no (unknown) (unknown) TECHNIQUE: (units (unk nown) date) unknown) (unknown) (no (unknown) (unknown) The calculations (units (unknown) date) are made using unknown) the clinical BRENDA of 05/12/2023. (unknown) (no (unknown) (unknown) To assist (units (unkn own) date) unknown) (unknown) (no (unknown) (unknown) Ultrasound (units (unk nown) date) Report unknown) (unknown) (no (unknown) (unknown) We strive to (units (u nknown) date) produce accurate, unknown) complete, and clear reports of imaging services. (unknown) (no (unknown) (unknown) and voice (units (unkn own) date) recognition unknown) software. Therefore, it may contain abnormal punctuation, (unknown) (no (unknown) (unknown) at 3-11 (units (unkno wn) date) unknown) (unknown) (no (unknown) (unknown) biometric (units (unkn own) date) unknown) (unknown) (no (unknown) (unknown) inaccuracies. (units ( unknown) date) unknown) (unknown) (no (unknown) (unknown) insertions (units (unk nown) date) and/or omissions. unknown) Occasional wrong-word or sound-alike substitutions (unknown) (no (unknown) (unknown) less than (units (unkn own) date) unknown) (unknown) (no (unknown) (unknown) may (units (unkno wn) date) unknown) (unknown) (no (unknown) (unknown) measurements. (units ( unknown) date) unknown) (unknown) (no (unknown) (unknown) mm. Cerebellum (units (unknown) date) is normal in size unknown) and morphology. (unknown) (no (unknown) (unknown) occur. Though we (units (unknown) date) review the report unknown) and make efforts to correct it, we do (unknown) (no (unknown) (unknown) recommend that (units (unknown) date) unknown) (unknown) (no (unknown) (unknown) templates (units (unkn own) date) unknown) (unknown) (no (unknown) (unknown) the report be (units ( unknown) date) read carefully in unknown) proper context to recognize any text (unknown) (no (unknown) (unknown) us in improving (units (unknown) date) patient care, unknown) this report was composed using standard report Result panel 568 (unknown) (no (unknown) (unknown) (no value) (units (unk nown) date) unknown) (unknown) (no (unknown) (unknown) (+13 lb) 106/66 N (units (unknown) date) unknown) (unknown) (no (unknown) (unknown) (+16 lb) 94/58 N (units (unknown) date) unknown) (unknown) (no (unknown) (unknown) (+8 lb) 94/62 N (units (unknown) date) unknown) (unknown) (no (unknown) (unknown) Genetic (units (unkn own) date) Screening/Teratolo unknown) gy Counseling - Includes patient, baby's father, or (unknown) (no (unknown) (unknown) - Close (units (unkno wn) date) observation for unknown) bleeding, abdominal pain (unknown) (no (unknown) (unknown) - Consider (units (unk nown) date) induction after 39 unknown) weeks if undelivered by then (unknown) (no (unknown) (unknown) -?-?-?-?-?-?-?-?- (units (unknown) date) ?-?-?-? unknown) (unknown) (no (unknown) (unknown) 10/30/22 (units (unkno wn) date) unknown) (unknown) (no (unknown) (unknown) 11/26/22 (units (unkno wn) date) unknown) (unknown) (no (unknown) (unknown) 12/04/21 4-5 (units (u nknown) date) spontaneous unknown) (unknown) (no (unknown) (unknown) 12/23/22 (units (unkno wn) date) unknown) (unknown) (no (unknown) (unknown) 12/23/22] (units (unkn own) date) unknown) (unknown) (no (unknown) (unknown) [id number] (units (unkno wn) date) unknown) (unknown) (no (unknown) (unknown) 05/17/97 30 5 lb (units (unknown) date) 11.712 oz Male unknown) vaginal live - (unknown) (no (unknown) (unknown) 10:36 (units (unkno wn) date) unknown) (unknown) (no (unknown) (unknown) 08/27/13 35 4 (units ( unknown) date) Male vaginal live unknown) - [facility] (unknown) (no (unknown) (unknown) 09/30/12 38 6 (units ( unknown) date) Female vaginal unknown) live - full term [facility] (unknown) (no (unknown) (unknown) 12w 2d 115 lb (units ( unknown) date) unknown) (unknown) (no (unknown) (unknown) 16w 1d 120 lb (units ( unknown) date) unknown) (unknown) (no (unknown) (unknown) 20w 0d 123 lb (units ( unknown) date) unknown) (unknown) (no (unknown) (unknown) 3-4 months (units (unk nown) date) placental unknown) abruption (unknown) (no (unknown) (unknown) 5 months (units (unkno wn) date) placental unknown) (unknown) (no (unknown) (unknown) Abnormal lab (units (u nknown) date) values 1st unknown) trimester: discussed (unknown) (no (unknown) (unknown) Add'l Plan (units (unk nown) date) Details unknown) (unknown) (no (unknown) (unknown) Additional Social (units (unknown) date) History unknown) (unknown) (no (unknown) (unknown) Affirm Vaginosis (units (unknown) date) Nunez Bacterial unknown) Today N89.8 - Other specified noninflammatory (unknown) (no (unknown) (unknown) Age at menarche: (units (unknown) date) 13 unknown) (unknown) (no (unknown) (unknown) Age/Sex: 42 / F (units (unknown) date) Date of Service: unknown) (unknown) (no (unknown) (unknown) Allergies (units (unkn own) date) unknown) (unknown) (no (unknown) (unknown) [place], [place] (units ( unknown) date) [id number] unknown) (unknown) (no (unknown) (unknown) Anesthesia (units (unk nown) date) unknown) (unknown) (no (unknown) (unknown) Aneuploidy (units (unk nown) date) Screening Offered: unknown) Accepted (wants CFDNA) (unknown) (no (unknown) (unknown) Anticipate (units (unknown) date) unknown) (unknown) (no (unknown) (unknown) Anticipated (units (un known) date) course of unknown) care: discussed (unknown) (no (unknown) (unknown) Assessment and (units (unknown) date) Plan unknown) (unknown) (no (unknown) (unknown) Attending Dr: (units ( unknown) date) Jacquie Dempsey unknown) P.A-C (unknown) (no (unknown) (unknown) BMI 24.0 (units (unkno wn) date) unknown) (unknown) (no (unknown) (unknown) BP 94/58 L (units (unk nown) date) unknown) (unknown) (no (unknown) (unknown) (units (unkno wn) date) Plan/Preferences unknown) (unknown) (no (unknown) (unknown) Planning (units (unknown) date) unknown) (unknown) (no (unknown) (unknown) Blood Pressure (units (unknown) date) Location Rt unknown) brachial (unknown) (no (unknown) (unknown) Blood (units (unkno wn) date) transfusions?: yes unknown) (Never had but would accept) (unknown) (no (unknown) (unknown) Breastfeed Preg (units (unknown) date) Comp Name unknown) (unknown) (no (unknown) (unknown) COVID-19 (units (unkno wn) date) unknown) (unknown) (no (unknown) (unknown) Caffeine use, (units ( unknown) date) Exercise and unknown) activity, work/environmental /hazards, Sexual (unknown) (no (unknown) (unknown) Current Estimate (units (unknown) date) 05/12/23 LMP unknown) (Certain) 20w 0d (unknown) (no (unknown) (unknown) Current (units (unknown) date) History unknown) (unknown) (no (unknown) (unknown) DNA (units (unkno wn) date) unknown) (unknown) (no (unknown) (unknown) : 1980 (units (unknown) date) Acct:[id number] unknown) (unknown) (no (unknown) (unknown) Date of positive (units (unknown) date) home unknown) test: 08/30/22 (unknown) (no (unknown) (unknown) Date (units (unkno wn) date) unknown) (unknown) (no (unknown) (unknown) Del. Date (units (unkn own) date) GA/Weeks Labor unknown) Lgth Wt Sex Route Outcome Anesthesia Place (unknown) (no (unknown) (unknown) Delv (units (unkno wn) date) unknown) (unknown) (no (unknown) (unknown) Denies Congenital (units (unknown) date) Heart Defect, unknown) Denies Down Syndrome, Denies Muscular Dystrophy, (unknown) (no (unknown) (unknown) Denies Maternal (units (unknown) date) Metabolic Disorder unknown) (EG,TYPE 1 Diabetes, PKU), Denies Patient or (unknown) (no (unknown) (unknown) Denies Neural (units ( unknown) date) Tube Defect unknown) (Meningomyelocele, Spina Bifida, or Anencephaly), De (unknown) (no (unknown) (unknown) Denies Sickle (units ( unknown) date) Cell Disease or unknown) Trait (), Denies Hemophilia or other blood (unknown) (no (unknown) (unknown) Denies other (units (u nknown) date) unknown) (unknown) (no (unknown) (unknown) Denies over the (units (unknown) date) counter unknown) medications, Denies alcohol, Denies illicit drugs and (unknown) (no (unknown) (unknown) Depression (units (unk nown) date) unknown) (unknown) (no (unknown) (unknown) Depression: (units (un known) date) discussed unknown) (unknown) (no (unknown) (unknown) Dept at (units (unkno wn) date) . unknown) (unknown) (no (unknown) (unknown) Diarrhea (units (unkno wn) date) unknown) (unknown) (no (unknown) (unknown) Diet and Exercise (units (unknown) date) unknown) (unknown) (no (unknown) (unknown) Disease (units (unkno wn) date) (Ashkenazi unknown) Religious), Denies Familial Dysautonomia (Ashkenazi Religious), (unknown) (no (unknown) (unknown) Documented By: (units (unknown) date) Jacquie Dempsey unknown) P.A-C 12/23/22 1035 (unknown) (no (unknown) (unknown) Domestic violence, (units (unknown) date) Travel, Seatbelt unknown) use and Influenza vaccine (will get flu shot (unknown) (no (unknown) (unknown) Draft (units (unkno wn) date) unknown) (unknown) (no (unknown) (unknown) Isak Gee (units (unknown) date) unknown) (unknown) (no (unknown) (unknown) BRENDA Calculator (units (unknown) date) unknown) (unknown) (no (unknown) (unknown) EGA Weight BP (units ( unknown) date) UGlucose unknown) (unknown) (no (unknown) (unknown) Estimated (units (unkn own) date) Delivery Date unknown) Method Current (unknown) (no (unknown) (unknown) Expected Delivery (units (unknown) date) Route/Plan unknown) (unknown) (no (unknown) (unknown) Family History (units (unknown) date) (Updated 11/25/22 unknown) @ 20:07 by Kristin Oconnor) (unknown) (no (unknown) (unknown) Father of Baby: (units (unknown) date) same unknown) (unknown) (no (unknown) (unknown) [facility]) (unknown) (no (unknown) (unknown) First Trimester (units (unknown) date) Education unknown) Checklist (unknown) (no (unknown) (unknown) (units (unkno wn) date) unknown) (unknown) (no (unknown) (unknown) Genetic Screening (units (unknown) date) + Counseling unknown) (unknown) (no (unknown) (unknown) Genetic Screening (units (unknown) date) unknown) (unknown) (no (unknown) (unknown) Grandfather (units (un known) date) History unknown) of heart attack (unknown) (no (unknown) (unknown) Grandfather (units (un known) date) History of heart unknown) attack (unknown) (no (unknown) (unknown) Grandmother (units (un known) date) History unknown) of heart attack (unknown) (no (unknown) (unknown) Grandmother (units (un known) date) History of heart unknown) attack (unknown) (no (unknown) (unknown) 5 (units (unkn own) date) Multiple births 0 unknown) (unknown) (no (unknown) (unknown) H/O breast (units (unk nown) date) surgery (-2009) unknown) (unknown) (no (unknown) (unknown) H/O rhinoplasty (units (unknown) date) (-2011) unknown) (unknown) (no (unknown) (unknown) HIV risk (units (unkno wn) date) evaluation: low unknown) risk (unknown) (no (unknown) (unknown) [facility] Center (units ( unknown) date) Education unknown) (unknown) (no (unknown) (unknown) Health center (units ( unknown) date) information: unknown) nature of practice discussed, personnel (unknown) (no (unknown) (unknown) Height 5 ft (units (un known) date) unknown) (unknown) (no (unknown) (unknown) Hepatitis C risk (units (unknown) date) evaluation: low unknown) risk (unknown) (no (unknown) (unknown) History of (units (unk nown) date) Hepatitis B: No unknown) (unknown) (no (unknown) (unknown) History of (units (unk nown) date) Hepatitis C: No unknown) (unknown) (no (unknown) (unknown) History of (units (unk nown) date) cosmetic surgery unknown) (unknown) (no (unknown) (unknown) Hospital. She was (units (unknown) date) felt to have a unknown) possible UTI and since then the bleeding has (unknown) (no (unknown) (unknown) Hospital: [facility], (units (unknown) date) may be moving to unknown) [place] in March (unknown) (no (unknown) (unknown) Mini's (units (u nknown) date) Chorea, Denies unknown) Other inherited genetic or chromosomal disorder, (unknown) (no (unknown) (unknown) Hx # (units (u nknown) date) Pregnancies 2 unknown) Elective abortions 0 (unknown) (no (unknown) (unknown) Hx # Term (units (unkn own) date) Pregnancies 1 unknown) Ectopic pregnancies 0 (unknown) (no (unknown) (unknown) Hx placental (units (u nknown) date) abruption with unknown) each of her three pregnancies; first (unknown) (no (unknown) (unknown) Hx precipitous (units (unknown) date) delivery with her unknown) 3rd delivery (unknown) (no (unknown) (unknown) will be (units (unknown) date) adopted?: no unknown) (unknown) (no (unknown) (unknown) Infection History (units (unknown) date) unknown) (unknown) (no (unknown) (unknown) Infectious (units (unk nown) date) Disease Education unknown) (unknown) (no (unknown) (unknown) Infectious (units (unk nown) date) disease exposure: unknown) chicken pox immunity discussed (believes non (unknown) (no (unknown) (unknown) Initial Weight: (units (unknown) date) 107 lb unknown) (unknown) (no (unknown) (unknown) Initials (units (unkno wn) date) unknown) (unknown) (no (unknown) (unknown) Intake Clinical (units (unknown) date) Staff unknown) (unknown) (no (unknown) (unknown) Intake Note: (units (u nknown) date) unknown) (unknown) (no (unknown) (unknown) Intake performed (units (unknown) date) by: Ashkan Frazier unknown) (unknown) (no (unknown) (unknown) Intake (units (unkno wn) date) unknown) (unknown) (no (unknown) (unknown) Live with someone (units (unknown) date) with TB or exposed unknown) to TB: No (unknown) (no (unknown) (unknown) Loc: [facility] (units (unkno wn) date) unknown) (unknown) (no (unknown) (unknown) Marital status: (units (unknown) date) unmarried,single unknown) (unknown) (no (unknown) (unknown) May be moving to (units (unknown) date) MD in March unknown) (unknown) (no (unknown) (unknown) Medical History (units (unknown) date) (Updated 12/10/22 unknown) @ 00:00 by ) (unknown) (no (unknown) (unknown) Medications (units (un known) date) unknown) (unknown) (no (unknown) (unknown) Menstrual History (units (unknown) date) unknown) (unknown) (no (unknown) (unknown) N No no 162 12 (units (unknown) date) N/A absent 4 wks unknown) (unknown) (no (unknown) (unknown) N Yes no 142 16 (units (unknown) date) N/A absent 4 wks unknown) (unknown) (no (unknown) (unknown) N (units (unkno wn) date) unknown) (unknown) (no (unknown) (unknown) Laz (units (unknown) date) presents today for unknown) her LOU visit now at 16+ 1 weeks (unknown) (no (unknown) (unknown) Yu presents (units (unknown) date) today for her unknown) initial OB visit with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 (unknown) read the note (units ( unknown) date) carefully and unknown) recognize, using context, where these substitutions (unknown) (no (unknown) (unknown) requiring (units (unknown) date) delivery unknown) (unknown) (no (unknown) (unknown) seatbelt use: (units ( unknown) date) always unknown) (unknown) (no (unknown) (unknown) second hand (units (un known) date) exposure: Yes (son unknown) vapes) (unknown) (no (unknown) (unknown) sent. Low BP in (units (unknown) date) the office today. unknown) She denies dizziness, light headedness. (unknown) (no (unknown) (unknown) shellfish derived (units (unknown) date) Adverse Reaction unknown) (Mild, Verified 12/23/22 10:36) (unknown) (no (unknown) (unknown) software. (units (unkn own) date) Although every unknown) effort is made to edit content, driver/sales workers errors (unknown) (no (unknown) (unknown) special chidi (units ( unknown) date) needs: No unknown) (unknown) (no (unknown) (unknown) stopped (units (unkno wn) date) completely. unknown) Ultrasound performed yesterday was unremarkable with no (unknown) (no (unknown) (unknown) substance use (units ( unknown) date) type: marijuana unknown) (edibles for sleep when not or (unknown) (no (unknown) (unknown) supervision of (units (unknown) date) other normal unknown) , second trimester, Z3A.20 - 20 weeks (unknown) (no (unknown) (unknown) tabs 12/23/22 [Rx (units (unknown) date) Confirmed unknown) 12/23/22] (unknown) (no (unknown) (unknown) the other 2 (units (un known) date) occurred at or unknown) near term. Patient has no known risk factors for (unknown) (no (unknown) (unknown) travel history: (units (unknown) date) recent (domestic unknown) only) (unknown) (no (unknown) (unknown) unspecified (units (un known) date) trimester, Z34.82 unknown) - Encounter for supervision of other normal (unknown) (no (unknown) (unknown) water heater temp (units (unknown) date) set < 120 deg: Yes unknown) (unknown) (no (unknown) (unknown) well-balanced (units ( unknown) date) diet: daily or unknown) most days (unknown) (no (unknown) (unknown) working smoke (units ( unknown) date) detector in home: unknown) Yes Result panel 570 (unknown) (no (unknown) (unknown) 50,000 - 60,000 cfu/ml (unknown) date) (unknown) (no (unknown) (unknown) LACSPELactobacillus (unit s (unknown) date) Species unknown) (unknown) (no (unknown) (unknown) LACSPELactobacillus (unit s (unknown) date) Species unknown) (unknown) (no (unknown) (unknown) No Further Workup (units (unknown) date) unknown) Result panel 571 (unknown) (no date) (unknown) (unknown) Negative (units (unkn own) unknown) (unknown) (no date) (unknown) (unknown) Negative (units (unkn own) unknown) (unknown) (no date) (unknown) (unknown) Negative (units (unkn own) unknown) Social History date description facility 2022-10-30 00:00 Never smoked tobacco (finding) [facility] 2022-11-25 00:00 Never smoked tobacco (finding) [facility] 2022-11-26 00:00 Never smoked tobacco (finding) [facility] 2022-12-23 00:00 Never smoked tobacco (finding) [facility] Vital Signs date measurement value units 2022-10-30 00:00 BMI 22.4 kg/m2 2022-10-30 00:00 BP_diastolic 62 mmHg 2022-10-30 00:00 BP_systolic 94 mmHg 2022-10-30 00:00 height_metric 152.4 cm 2022-10-30 00:00 height_standard 60 in 2022-10-30 00:00 weight_metric 52.16 kg 2022-10-30 00:00 weight_standard 114.99 lb 2022-11-25 00:00 BP_diastolic 55 mmHg 2022-11-25 00:00 BP_systolic 99 mmHg 2022-11-25 00:00 heart_rate 79 /min 2022-11-25 00:00 o2_saturation 98 % 2022-11-25 00:00 respiration_rate 18 /min 2022-11-25 00:00 temperature_metric 36.67 C 2022-11-25 00:00 temperature_standard 98 F 2022-11-25 00:00 weight_metric 52.16 kg 2022-11-25 00:00 weight_standard 114.99 lb 2022-11-26 00:00 BMI 23.4 kg/m2 2022-11-26 00:00 BP_diastolic 66 mmHg 2022-11-26 00:00 BP_systolic 106 mmHg 2022-11-26 00:00 height_metric 152.4 cm 2022-11-26 00:00 height_standard 60 in 2022-11-26 00:00 weight_metric 54.43 kg 2022-11-26 00:00 weight_standard 120 lb 2022-12-23 00:00 BMI 24.0 kg/m2 2022-12-23 00:00 BP_diastolic 58 mmHg 2022-12-23 00:00 BP_systolic 94 mmHg 2022-12-23 00:00 height_metric 152.4 cm 2022-12-23 00:00 height_standard 60 in 2022-12-23 00:00 weight_metric 55.79 kg 2022-12-23 00:00 weight_standard 123 lb
[2022-12-25 20:33] LABS: BILIRUBIN,URINE NEGATIVE (NEGATIVE); GLUCOSE, URINE (UA) NEGATIVE (NEGATIVE); KETONES,URINE (UA) NEGATIVE (NEGATIVE); LEUKOCYTE ESTERASE, URINE MODERATE (NEGATIVE); NITRITE,URINE NEGATIVE (NEGATIVE); OCCULT BLOOD,URINE TRACE-LYSE (NEGATIVE); PROTEIN,URINE NEGATIVE (NEGATIVE); UROBILINOGEN,URINE 0.2 (NORMAL) E.U./dL (NORMAL)
[2022-12-25 20:34] LABS: CLARITY,URINE CLEAR (CLEAR)
[2022-12-25 20:42] LABS: RBC,URINE 0-5 /HPF (0-5); SQUAMOUS EPITHELIAL CELL,UR MOD Squamous (<= Few)
[2022-12-25 20:43] LABS: BACTERIA,URINE Moderate /HPF (None Seen); MUCUS,URINE Few Strands
--- NOTE | 2022-12-25 21:50 | ED Physician Documentation ---
History of Present Illness - Stated complaint Stated Complaint: GLF IN SHOWER - Chief complaint Chief Complaint: Back Pain - History obtained from History obtained from: Patient, Family - History of Present Illness Timing: Today Pain level max: 0 Pain level now: 0 - Additonal information Additional information: 42-year-old female, 20 weeks presents to the emergency department. She states that she was in the shower today when she slipped fell landing on the left forearm. She initially had some mild low back pain, this has resolved. No vaginal bleeding or discharge. She is concerned about her baby and wants the baby checked out. No head injury. No neck or back pain. Review of Systems Constitutional: denies: Fever, Chills GI: denies: Vomiting, Diarrhea Skin: denies: Rash Musculoskeletal: denies: Neck pain, Back pain Neurologic: denies: Headache PD PAST MEDICAL HISTORY - Past Medical History Past Medical History: No Cardiovascular: None Respiratory: None Endocrine/Autoimmune: Other - Past Surgical History Past Surgical History: No - Present Medications Home Medications: Ambulatory Orders Medication Instructions Recorded Confirmed No Known Home Medications 12/25/22 12/25/22 - Allergies Allergies/Adverse Reactions: Allergies Allergy/AdvReac Type Severity Reaction Status Date / Time Penicillins AdvReac Intermediate swollen Verified 01/23/21 23:43 - Social History Does the pt smoke?: No Smoking Status: Never smoker Does the pt drink ETOH?: Yes Does the pt have substance abuse?: No - Immunizations Immunizations are current?: Yes - POLST Patient has POLST: No PD ED PE NORMAL - Vitals Vital signs reviewed: Yes - General General: Alert and oriented X 3, No acute distress - HEENT HEENT: Atraumatic, PERRL, Moist mucous membranes, Pharynx benign - Neck Neck: Supple, no meningeal sign, No bony TTP - Cardiac Cardiac: RRR - Respiratory Respiratory: No respiratory distress, Clear bilaterally - Abdomen Abdomen: Soft, Non tender, Other (Abdomen is soft, nontender. Gravid abdomen) - Back Back: No spinal TTP - Derm Derm: Warm and dry - Extremities Extremities: No edema, No calf tenderness / cord - Neuro Neuro: Alert and oriented X 3, epic beacon specialists 2-12 intact, No motor deficit, No sensory deficit, Normal speech Eye Opening: Spontaneous Motor: Obeys Commands Verbal: Oriented GCS Score: 15 - Psych Psych: Normal mood, Normal affect Results - Vitals Vitals: Vital Signs - 24 hr 12/25/22 12/25/22 18:57 22:03 Temperature 36.6 C Heart Rate 73 70 Respiratory 16 16 Rate Blood Pressure 100/54 L 114/67 O2 Saturation 99 100 Oxygen O2 Source Room air - Labs Labs: Laboratory Tests 12/25/22 20:20 Urine Color YELLOW Urine Clarity CLEAR Urine pH 6.0 Ur Specific [place] <=1.005 Urine Protein NEGATIVE Urine Glucose (UA) NEGATIVE Urine Ketones NEGATIVE Urine Occult Blood TRACE-LYSE Urine Nitrite NEGATIVE Urine Bilirubin NEGATIVE Urine Urobilinogen 0.2 (NORMAL) Ur Leukocyte Esterase MODERATE H Urine RBC 0-5 Urine WBC 6-10 H Ur Squamous Epith Cells MOD Squamous H Urine Bacteria Moderate H Urine Mucus Few Strands Ur Microscopic Review INDICATED Urine Culture Comments NOT INDICATED - Rads (name of study) OB US Relevant Findings:: Final report received, See rad report PD Medical Decision Making - ED course Complexity details: reviewed results, re-evaluated patient, considered differential, d/w patient ED course: 42-year-old female who presents to the emergency department after a fall today in the shower. She is about 20 weeks . She has no acute physical injuries. Her ultrasound does not show any abnormalities. No placental abruption. No contractions. No vaginal bleeding. We will have her follow-up with her OB for further care as scheduled. Patient counseled regarding signs and symptoms for which I believe and urgent re-evaluation would be necessary. Patient with good understanding of and agreement to plan and is comfortable going home at this time This document was made in part using voice recognition software. While efforts are made to proofread this document, sound alike and grammatical errors may occur. IMPRESSION: 1. Single living intrauterine redemonstrated. 2. No evidence of placental abruption. Departure - Departure Disposition: 01 Home, Self Care Clinical Impression: Ground-level fall Qualifiers: Weeks of gestation: 20 weeks Qualified Code(s): Z3A.20 - 20 weeks gestation of Condition: Good Instructions: ED Care, ED Preg Established Normal Sxs Follow-Up: your,doctor as needed [Other] Comments: Your ultrasound does not show any acute abnormalities today. Please follow-up with your OB for further care. Please return if you worsen including abdominal pain, cramping or vaginal bleeding. Discharge Date/Time: 12/25/22 22:03
[2022-12-25 22:03] VITALS: BP 114/67
--- NOTE | 2022-12-25 23:19 | Ultrasound Report ---
PROCEDURE: OB Limited INDICATIONS: fall in shower, +preg 20 weeks OB OUTSIDE/PRIOR DATING DATA: Last menstrual period (LMP): 07/08/2022. LMP-based estimated date of delivery (BRENDA): 05/16/2023. First dating scan (date and location): 10/08/2022. Estimated date of delivery (BRENDA) from first dating scan: 05/13/2023. The below data below was generated using the clinical BRENDA of 05/22/2023 TECHNIQUE: Real-time scanning was performed of the fetus, with image documentation. COMPARISON: [facility] 12/23/2022, 11/25/2022, 10/08/2022. FINDINGS: A single living intrauterine gestation is present. Presentation: Variable Placenta: Placental position is posterior, without previa. No periplacental fluid collections to sugg est abruption. Amniotic fluid index: 15 cm, within normal limits for gestational age. Largest pocket measures 4.4 cm. heart rate: 150 beats per minutes. Maternal cervical canal: 3.6 cm long; normal length is 2.5 cm or more. Estimated gestational age from initial scan: 20 weeks 2 days. IMPRESSION: 1. Single living intrauterine redemonstrated. 2. No evidence of placental abruption. Reviewed by: Jacques Laguna MD on 12/25/2022 11:18 PM PDT Approved by: Jacques Laguna MD on 12/25/2022 11:18 PM PDT Station ID: [id number]
== END 2022-12-25 22:03 | disposition home or self-care (01) ==
LOC: ED 18:48
DX: Z04.3 Encounter for examination and observation following other accident (principal)
CPT/HCPCS: 81001; 81003; 87086; 99282; 99284